=== PATIENT | female | born 1945 | race Caucasian/White ===

== ENCOUNTER → 2018-03-01 08:40 | Outpatient (CLI) | payer OTHER, SELFPAY ==
[2018-03-04 21:29] LABS: H. Pylori Antigen Stool Not detected (Not detected)
== END ==
PROVIDERS: PCP Internal Medicine; Visit Provider Internal Medicine
DX: K29.70 Gastritis, unspecified, without bleeding (principal)
CPT/HCPCS: 86677

== ENCOUNTER → 2018-04-04 15:59 | Outpatient (CLI) | payer OTHER, SELFPAY ==
[2018-04-04 17:35] LABS: Estimated Glomerular Filt Rate > 60.0 mL/min (>60)
== END ==
PROVIDERS: PCP Internal Medicine; Visit Provider Student in an Organized Health Care Education/Training Program
DX: E21.0 Primary hyperparathyroidism (principal)
CPT/HCPCS: 36415; 82565

== ENCOUNTER → 2018-05-27 10:11 | Outpatient (CLI) | payer OTHER, SELFPAY ==
[2018-05-27 13:57] LABS: Calcium 10.8 mg/dL (8.4-10.2)
== END ==
PROVIDERS: PCP Internal Medicine; Visit Provider Physician Assistant Medical
DX: E21.0 Primary hyperparathyroidism (principal)
CPT/HCPCS: 36415; 82310

== ENCOUNTER → 2018-10-05 10:19 | Outpatient (CLI) | payer OTHER, SELFPAY ==
--- NOTE | 2018-10-05 | DI.MG.S_ITS ---
BILATERAL DIGITAL SCREENING MAMMOGRAM 3D/2D WITH CAD: 10/05/2018 CLINICAL: Routine screening. Comparison is made to exams dated: 10/01/2017 mammogram, 09/26/2016 mammogram, and 09/28/2015 mammogram - [facility]. There are scattered fibroglandular elements in both breasts. Current study was also evaluated with a Computer Aided Detection (CAD) system. There are mole markers on the left breast. No significant masses, calcifications, or other findings are seen in either breast. There has been no significant interval change. IMPRESSION: NEGATIVE There is no mammographic evidence of malignancy. A 1 year screening mammogram is recommended. This exam was interpreted at Station ID: [id number]. NOTE: For mammograms, a report in lay terms will be sent to the patient. Approximately 15% of breast malignancies will not be visualized mammographically. In the management of a palpable breast mass, a negative mammogram must not discourage biopsy of a clinically suspicious lesion. Electronically Signed By: Zhao perkins/anitha:10/07/2018 17:51:15 letter sent: Normal Exam ACR BI-RADS Category 1: Negative 3341F
== END ==
PROVIDERS: PCP Student in an Organized Health Care Education/Training Program; Visit Provider Student in an Organized Health Care Education/Training Program
DX: Z12.31 Encounter for screening mammogram for malignant neoplasm of breast (principal)
CPT/HCPCS: 77063; 77067

== ENCOUNTER → 2018-11-18 13:23 | Outpatient (CLI) | payer OTHER, SELFPAY ==
[2018-11-18 14:52] LABS: Calcium 9.8 mg/dL (8.4-10.2)
[2018-11-18 16:08] LABS: Vitamin D 25 Hydroxy (D3) 64.4 ng/mL (30.0-100.0)
[2018-11-20 15:21] LABS: Parathyroid Hormone Int 74 pg/mL (14-64)
== END ==
PROVIDERS: PCP Student in an Organized Health Care Education/Training Program; Visit Provider Internal Medicine Endocrinology, Diabetes & Metabolism
DX: E21.3 Hyperparathyroidism, unspecified (principal)
CPT/HCPCS: 36415; 82306; 82310; 83970; 84100

== ENCOUNTER → 2019-02-17 11:13 | Outpatient (CLI) | payer OTHER, SELFPAY ==
[2019-02-19 16:01] LABS: Fecal Immunochemical Test NOT DETECTED (NOT DETECTED)
== END ==
PROVIDERS: PCP Student in an Organized Health Care Education/Training Program; Visit Provider Student in an Organized Health Care Education/Training Program
DX: Z12.11 Encounter for screening for malignant neoplasm of colon (principal)
CPT/HCPCS: 82274

== ENCOUNTER → 2019-05-30 10:00 | Outpatient (CLI) | payer OTHER, SELFPAY ==
[2019-05-30 11:32] LABS: BUN Creatinine Ratio 28.6 (6-22); Blood Urea Nitrogen 20 mg/dL (7-17); Calcium 10.5 mg/dL (8.4-10.2); Carbon Dioxide 31 mmol/L (22-32); Chloride 97 mmol/L (98-107); Estimated Glomerular Filt Rate > 60.0 mL/min (>60); Glucose 96 mg/dL (80-110); HEMOLYSIS < 15 (0-50); Potassium 4.3 mmol/L (3.4-5.1); Sodium 134 mmol/L (137-145)
[2019-05-30 11:51] LABS: Vitamin D 25 Hydroxy (D3) 62.8 ng/mL (30.0-100.0)
[2019-06-04 12:19] LABS: Parathyroid Hormone Int 71 pg/mL (14-64)
== END ==
PROVIDERS: PCP Student in an Organized Health Care Education/Training Program; Visit Provider Internal Medicine Endocrinology, Diabetes & Metabolism
DX: M81.0 Age-related osteoporosis without current pathological fracture (principal); E21.0 Primary hyperparathyroidism; I10 Essential (primary) hypertension
CPT/HCPCS: 36415; 80048; 82306; 83970; 84443

== ENCOUNTER → 2019-07-14 10:04 | Outpatient (CLI) | payer OTHER, SELFPAY ==
[2019-07-14 11:26] LABS: Calcium 10.1 mg/dL (8.4-10.2); Phosphorous 3.5 mg/dL (2.8-4.1)
[2019-07-16 13:47] LABS: Parathyroid Hormone Int 80 pg/mL (14-64)
== END ==
PROVIDERS: Family Provider Student in an Organized Health Care Education/Training Program; PCP Student in an Organized Health Care Education/Training Program; Visit Provider Internal Medicine Endocrinology, Diabetes & Metabolism
DX: E21.0 Primary hyperparathyroidism (principal); M81.0 Age-related osteoporosis without current pathological fracture
CPT/HCPCS: 36415; 82306; 82310; 83970; 84100

== ENCOUNTER 2019-08-19 08:23 | Day surgery (SDC) | payer OTHER, SELFPAY ==
[2019-08-19] MEDS: PROPARACAINE 0.5% OPHTH SOL 2 DROPS EYE-OP (09:19)
[2019-08-19] MEDS: CATARACT EYE COMPOUND (10 DROPS/SYRINGE) 3 DROPS EYE-OP (09:21)
[2019-08-19 09:29] VITALS: BP 155/84; PULSE 75; RESP 15; TEMP 36.1; O2SAT 99; BMI 14.4
--- NOTE | 2019-08-19 10:09 | PM.PREOP ---
Pre-operative Note Interval Note History & Physical reviewed/Exam performed by Physician: No Changes to H&P: No
--- NOTE | 2019-08-19 10:09 | PM.OP.1 ---
Operative Date/Time/Diagnoses Pre-op diagnosis: Nuclear Cataract Left eye Post-op diagnosis: same Procedure & Clinicians Surgeon: Augustine Tarango Anesthesia Type: MAC +/- and Sedation Operative Notes Procedure in detail: Patient brought to the operating suite. Tetracaine drops placed in the left eye. Patient was prepped and draped in sterile manner. Wire lid speculum was placed in the eye. Betadine drops were placed on the eye. This was irrigated. Lidocaine jelly was placed on the eye. A paracentesis port was created with a side-port blade. 0.1 mL 1% preservative free lidocaine was injected into the anterior chamber. The anterior chamber was deepened with viscoelastic. 2.6 mm keratome was used to create a temporal clear corneal incision. Cystotome and Utrata forceps were used to create continuous tear capsulorrhexis. Balanced salt solution was used to hydro dissect the nucleus. The phacoemulsification handpiece was inserted and the nucleus was removed using the stop and chop technique. The irrigation aspiration handpiece was inserted and the remaining cortex was removed. Anterior chamber was deepened with viscoelastic. An Osborne ZCB00 intraocular lens with a power of 16.5 was injected into the capsular bag. Irrigation aspiration handpiece was inserted and the remaining viscoelastic was removed. Incision was hydrated with balanced salt solution and found to be leak free with pressure with Weck-Heide sponges. 0.1 mL Vigamox injected anterior chamber. 0.3 mL Kenalog 10 mg was injected subconjunctivally. Lid speculum was removed. The patient left the operating room in excellent condition. Complications: none Post-operative Condition: stable Disposition: same day surgery
[2019-08-19] MEDS: CHONDROIDTIN/SOD HYALURONATE 1.05 ML SYRINGE INTRAOCULA (10:27)
[2019-08-19] MEDS: PHENYLEPHRINE/LIDOCAINE VIAL (OR) 0.2 ML EYE-OP (10:28)
[2019-08-19] MEDS: LIDOCAINE JELLY 2% 5 ML 1 APPLIC TOP (10:28)
[2019-08-19] MEDS: MOXIFLOXACIN INJ 5 MG/ML VIAL EYE-OP (10:28)
[2019-08-19] MEDS: TRIAMCINOLONE 50 MG/5 ML VIAL INJ (10:29)
[2019-08-19] MEDS: BALANCED SALT IRRIG SOLN NO.2 500 ML, EPINEPHrine 1 MG IRR (10:29)
[2019-08-19] MEDS: TETRACAINE 0.5% OPHTH DROPS 4 ML 2 DROPS EYE-OP (10:29)
[2019-08-19 10:53] VITALS: BP 146/83; PULSE 79; RESP 16; TEMP 36.7; O2SAT 98
--- NOTE | 2019-08-19 14:20 | SUR.PHASEII ---
called volunteer for discharge. Pt dressed, transferred into blue wheel chair, pleasant, oriented, expressed appreciation for care and commented on how nice everyone was. Surgical site. CDI. Stable.
== END 2019-08-19 11:04 | disposition home or self-care (01) ==
LOC: OR 08:25
PROVIDERS: Family Provider Student in an Organized Health Care Education/Training Program; PCP Student in an Organized Health Care Education/Training Program; Visit Provider Ophthalmology
PROC: (CPT 66984; principal; 2019-08-19 10:15)
DX: H25.12 Age-related nuclear cataract, left eye (principal)
CPT/HCPCS: 66984; J0171; J2250; J3010; J3301

== ENCOUNTER 2019-09-02 10:28 | Day surgery (SDC) | payer OTHER, SELFPAY ==
[2019-09-02] MEDS: PROPARACAINE 0.5% OPHTH SOL 2 DROPS EYE-OP (10:45)
[2019-09-02 10:58] VITALS: BP 144/82; PULSE 82; RESP 16; TEMP 36.9; O2SAT 100; BMI 26.3
[2019-09-02] MEDS: CATARACT EYE COMPOUND (10 DROPS/SYRINGE) 3 DROPS EYE-OP (11:04)
--- NOTE | 2019-09-02 11:08 | PM.PREOP ---
Pre-operative Note Interval Note History & Physical reviewed/Exam performed by Physician: No Changes to H&P: No
--- NOTE | 2019-09-02 11:08 | PM.OP.1 ---
Operative Date/Time/Diagnoses Pre-op diagnosis: Nuclear cataract right eye Procedure & Clinicians Procedure: Cataract Surgery Same procedure as scheduled: Yes Surgeon: Augustine Tarango Anesthesia Type: MAC +/- and Sedation Operative Notes Procedure in detail: Patient brought to the operating suite. Tetracaine drops placed in the right eye. Patient was prepped and draped in sterile manner. Wire lid speculum was placed in the eye. Betadine drops were placed on the eye. This was irrigated. Lidocaine jelly was placed on the eye. A paracentesis port was created with a side-port blade. 0.1 mL 1% preservative free lidocaine was injected into the anterior chamber. The anterior chamber was deepened with viscoelastic. 2.6 mm keratome was used to create a temporal clear corneal incision. Cystotome and Utrata forceps were used to create continuous tear capsulorrhexis. Balanced salt solution was used to hydro dissect the nucleus. The phacoemulsification handpiece was inserted and the nucleus was removed using the stop and chop technique. The irrigation aspiration handpiece was inserted and the remaining cortex was removed. Anterior chamber was deepened with viscoelastic. An Osborne ZCB00 intraocular lens with a power of 17.0 was injected into the capsular bag. Irrigation aspiration handpiece was inserted and the remaining viscoelastic was removed. Incision was hydrated with balanced salt solution and found to be leak free with pressure with Weck-Ehide sponges. 0.1 mL Vigamox injected anterior chamber. 0.3 mL Kenalog 10 mg was injected subconjunctivally. Lid speculum was removed. The patient left the operating room in excellent condition. Complications: none Post-operative Condition: stable Disposition: same day surgery
[2019-09-02] MEDS: PHENYLEPHRINE/LIDOCAINE VIAL (OR) 0.2 ML EYE-OP (11:46)
[2019-09-02] MEDS: CHONDROIDTIN/SOD HYALURONATE 1.05 ML SYRINGE INTRAOCULA (11:47)
[2019-09-02] MEDS: MOXIFLOXACIN INJ 5 MG/ML VIAL EYE-OP (11:47)
[2019-09-02] MEDS: TRIAMCINOLONE 50 MG/5 ML VIAL INJ (11:47)
[2019-09-02] MEDS: LIDOCAINE JELLY 2% 5 ML 1 APPLIC TOP (11:48)
[2019-09-02] MEDS: BALANCED SALT IRRIG SOLN NO.2 500 ML, EPINEPHrine 1 MG IRR (11:48)
[2019-09-02] MEDS: TETRACAINE 0.5% OPHTH DROPS 4 ML 2 DROPS EYE-OP (11:48)
[2019-09-02 12:05] VITALS: BP 140/80; PULSE 80; RESP 20; TEMP 36.9; O2SAT 100
--- NOTE | 2019-09-02 18:03 | SUR.PHASEII ---
doris bruno was discharging RN for phase 2 care- all charting entered by Shayy Trevino RN
== END 2019-09-02 12:15 | disposition home or self-care (01) ==
PROVIDERS: PCP Student in an Organized Health Care Education/Training Program; Visit Provider Ophthalmology
PROC: (CPT 66984; principal; 2019-09-02 12:15)
DX: H25.11 Age-related nuclear cataract, right eye (principal); J45.909 Unspecified asthma, uncomplicated
CPT/HCPCS: 66984; J0171; J2250; J3010; J3301

== ENCOUNTER → 2019-10-09 09:58 | Outpatient (CLI) | payer OTHER, SELFPAY ==
--- NOTE | 2019-10-09 | DI.MG.S_ITS ---
BILATERAL DIGITAL SCREENING MAMMOGRAM 3D/2D WITH CAD: 10/09/2019 CLINICAL: Routine screening. Comparison is made to exams dated: 10/05/2018 mammogram, 10/01/2017 mammogram, 09/26/2016 mammogram, 09/22/2015 mammogram, 08/13/2014 mammogram, and 08/11/2013 mammogram - [facility]. There are scattered fibroglandular elements in both breasts. Current study was also evaluated with a Computer Aided Detection (CAD) system. There is an irregular asymmetry with an indistinct margin in the left breast middle depth lateral region seen on the craniocaudal view only. This appears more prominent than on prior exams. Calcifications project over this asymmetry on LCC view. There are circular mole markers overlying the breasts bilaterally. No other significant masses, calcifications, or other findings are seen in either breast. IMPRESSION: INCOMPLETE: NEEDS ADDITIONAL IMAGING EVALUATION The irregular asymmetry in the left breast middle depth lateral region is indeterminate. Additional views with possible ultrasound are recommended. This exam was interpreted at Station ID: [id number]. NOTE: For mammograms, a report in lay terms will be sent to the patient. Approximately 15% of breast malignancies will not be visualized mammographically. In the management of a palpable breast mass, a negative mammogram must not discourage biopsy of a clinically suspicious lesion. Electronically Signed By: Zhao Flowers M.D. ecl/:10/09/2019 18:33:29 letter sent: Additional Imaging Needed ACR BI-RADS Category 0: Incomplete 3340F
== END ==
PROVIDERS: PCP Student in an Organized Health Care Education/Training Program; Visit Provider Obstetrics & Gynecology
DX: Z12.31 Encounter for screening mammogram for malignant neoplasm of breast (principal)
CPT/HCPCS: 77063; 77067

== ENCOUNTER → 2019-10-22 14:12 | Outpatient (CLI) | payer OTHER, SELFPAY ==
--- NOTE | 2019-10-22 | DI.RAD.S_ITS ---
PROCEDURE: XR KNEE RT 3V INDICATIONS: RIGHT KNEE PAIN TECHNIQUE: 3 views of the knee were acquired. COMPARISON: [facility], , KNEE 3V LEFT, 06/18/2008, 10:54. FINDINGS: Bones: No fractures or dislocations. There is a mild degree of degenerative osteoarthritic joint space narrowing is seen at the medial compartment. At the medial border of the medial facet of the patellofemoral joint there is a an osseous contour irregularity which may reflect old trauma in that area. This measures approximately 1.8 cm in transverse dimension. It appears corticated. No suspicious bony lesions. Soft tissues: No joint effusion. No suspicious soft tissue calcifications. 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 Dictated by: Agustin Chambers M.D. on 10/22/2019 at 14:47 Approved by: Agustin Chambers M.D. on 10/22/2019 at 14:50
== END ==
PROVIDERS: PCP Student in an Organized Health Care Education/Training Program; Visit Provider Student in an Organized Health Care Education/Training Program
DX: M25.561 Pain in right knee (principal); M17.11 Unilateral primary osteoarthritis, right knee
CPT/HCPCS: 73562

== ENCOUNTER → 2019-10-28 13:06 | Outpatient (CLI) | payer OTHER, SELFPAY ==
--- NOTE | 2019-10-28 13:06 | DI.MG.S_ITS ---
UNILATERAL LEFT DIGITAL DIAGNOSTIC MAMMOGRAM 3D/2D WITH ADDITIONAL VIEWS: 10/28/2019 CLINICAL: Additional evaluation requested from prior study. Comparison is made to exams dated: 10/09/2019 mammogram, 10/05/2018 mammogram, and 10/01/2017 mammogram - [facility]. There are scattered fibroglandular elements in left breast. There is an irregular focal asymmetry with a few coarse and vascular calcifications in the left breast at 2 o'clock middle depth. This is less prominent in additional views. No other significant masses or calcifications are seen in the breast. IMPRESSION: INCOMPLETE: NEEDS ADDITIONAL IMAGING EVALUATION The irregular focal asymmetry in the left breast partially resolves and remains indeterminate. An ultrasound is recommended. This was performed immediately following this exam. This exam was interpreted at Station ID: [id number]. NOTE: For mammograms, a report in lay terms will be sent to the patient. Approximately 15% of breast malignancies will not be visualized mammographically. In the management of a palpable breast mass, a negative mammogram must not discourage biopsy of a clinically suspicious lesion. Electronically Signed By: Rosalie dey/:10/28/2019 14:22:08 copy to: BREN SCHUSTER BI-RADS Category 0: Incomplete 3340F
--- NOTE | 2019-10-28 13:06 | DI.US.S_ITS ---
LIMITED ULTRASOUND OF LEFT BREAST: 10/28/2019 CLINICAL: Patient returns today to evaluate a focal asymmetry in the left breast. Comparison is made to exams dated: 10/28/2019 mammogram, 10/09/2019 mammogram, 10/05/2018 mammogram, 10/01/2017 mammogram, 09/26/2016 mammogram, and 09/22/2015 mammogram - [facility]. Color flow and real-time ultrasound of the left breast 1-5 o'clock region were performed. Sotelo scale images of the real-time examination were reviewed. No significant abnormalities were seen sonographically in the left breast. Specifically, no finding to correspond to the patient's mammographic abnormality. IMPRESSION: PROBABLY BENIGN No sonographic correlate to the mammographic finding, and no sonographic evidence of malignancy. A follow-up left mammogram in 6 months is recommended to demonstrate stability of the mammographic finding. Findings and recommendations were conveyed to the patient at time of exam. This exam was interpreted at Station ID: [id number]. Electronically Signed By: Rosalie dey/:10/28/2019 14:24:54 copy to: BREN MONTGOMERY letter sent: Followup Recommended Ultrasound BI-RADS: 3 Probably benign
== END ==
PROVIDERS: PCP Student in an Organized Health Care Education/Training Program; Visit Provider Obstetrics & Gynecology
DX: R92.8 Other abnormal and inconclusive findings on diagnostic imaging of breast (principal); N64.89 Other specified disorders of breast
CPT/HCPCS: 76642; 77065; G0279

== ENCOUNTER → 2019-11-26 14:07 | Outpatient (CLI) | payer OTHER, SELFPAY | PROVIDERS: PCP Student in an Organized Health Care Education/Training Program; Referring Provider Internal Medicine Endocrinology, Diabetes & Metabolism; Visit Provider Internal Medicine Endocrinology, Diabetes & Metabolism | DX: M85.88 Other specified disorders of bone density and structure, other site (principal); Z78.0 Asymptomatic menopausal state; E21.3 Hyperparathyroidism, unspecified; Z87.891 Personal history of nicotine dependence | CPT/HCPCS: 77080; 77081 ==

== ENCOUNTER → 2020-04-16 11:06 | Outpatient (CLI) | payer OTHER, SELFPAY ==
[2020-04-16 12:21] LABS: Albumin 4.4 g/dL (3.5-5.0); BUN Creatinine Ratio 27.9 (6-22); Blood Urea Nitrogen 17 mg/dL (7-17); Calcium 10.3 mg/dL (8.4-10.2); Carbon Dioxide 30 mmol/L (22-32); Chloride 95 mmol/L (98-107); Estimated Glomerular Filt Rate > 60.0 mL/min (>60); Glucose 89 mg/dL (80-110); HEMOLYSIS < 15 (0-50); Phosphorous 3.9 mg/dL (2.8-4.1); Potassium 4.2 mmol/L (3.4-5.1); Sodium 131 mmol/L (137-145)
[2020-04-16 12:54] LABS: Thyroid Stimulating Hormone 2.31 uIU/mL (0.47-4.68)
[2020-04-17 06:35] LABS: Parathyroid Hormone Int 70 pg/mL (15-65)
== END ==
PROVIDERS: PCP Student in an Organized Health Care Education/Training Program; Referring Provider Internal Medicine Endocrinology, Diabetes & Metabolism; Visit Provider Internal Medicine Endocrinology, Diabetes & Metabolism
DX: M81.0 Age-related osteoporosis without current pathological fracture (principal); E21.0 Primary hyperparathyroidism
CPT/HCPCS: 36415; 80069; 82306; 83970; 84443

== ENCOUNTER → 2020-04-27 08:42 | Outpatient (CLI) | payer OTHER, SELFPAY ==
--- NOTE | 2020-04-27 08:42 | DI.MG.S_ITS ---
UNILATERAL LEFT DIGITAL DIAGNOSTIC MAMMOGRAM 3D/2D SHORT-TERM FOLLOW-UP: 04/27/2020 CLINICAL: Patient returns for a 6 month follow up of the left breast. Comparison is made to exams dated: 10/28/2019 mammogram, 10/09/2019 mammogram, 10/05/2018 mammogram, 10/01/2017 mammogram, 09/26/2016 mammogram, and 09/22/2015 mammogram - [facility]. There are scattered fibroglandular elements in left breast. The irregular focal asymmetry with indistinct margins in the left breast at 2 o'clock middle depth is no longer seen. No other significant masses or calcifications are seen in the breast. IMPRESSION: There is no mammographic evidence of malignancy. Return to annual mammogram screening schedule is recommended. This exam was interpreted at Station ID: [id number]. NOTE: For mammograms, a report in lay terms will be sent to the patient. Approximately 15% of breast malignancies will not be visualized mammographically. In the management of a palpable breast mass, a negative mammogram must not discourage biopsy of a clinically suspicious lesion. Electronically Signed By: Radu Black M.D. ddbg/:04/27/2020 09:14:55 copy to: BREN MONTGOMERY letter sent: Normal Exam ACR BI-RADS Category 2: Benign Finding(s) 3342F
== END ==
PROVIDERS: PCP Student in an Organized Health Care Education/Training Program; Referring Provider Student in an Organized Health Care Education/Training Program; Visit Provider Student in an Organized Health Care Education/Training Program
DX: R92.8 Other abnormal and inconclusive findings on diagnostic imaging of breast (principal); N64.89 Other specified disorders of breast
CPT/HCPCS: 77065; G0279

== ENCOUNTER → 2020-08-18 14:14 | Outpatient (CLI) | payer OTHER, SELFPAY ==
--- NOTE | 2020-08-18 | DI.US.S_ITS ---
PROCEDURE: US THYROID INDICATIONS: Nontoxic multinodular goiter TECHNIQUE: Real-time scanning was performed of the thyroid gland, with image documentation. COMPARISON: None. FINDINGS: Right: Thyroid lobe measures 5.7 x 2.5 x 2.7 cm, and is diffusely heterogeneous in echotexture. Left: Prior left thyroidectomy. Isthmus: 3.4 mm thick. Nodule number: 1 Location: Right inferior Size: 1.9 x 2.1 x 1.5 cm. Composition: Solid Echogenicity: Predominantly hyperechoic Shape: wider than tall. Margins: Smooth Echogenic foci: Internal punctate echogenic foci Total points: 6 ACR TI-RADS category: Moderately suspicious Nodule number: 2 Location: Right mid Size: 2.3 x 2.2 x 1.2 cm. Composition: Solid Echogenicity: Hyperechoic Shape: wider than tall. Margins: Smooth Echogenic foci: None Total points: 3 ACR TI-RADS category: Mildly suspicious IMPRESSION: Right thyroid nodules as above. Recommend sonographically directed fine-needle aspiration involving the right #1 nodule. ACR TI-RADS definitions and recommendations: TI-RADS 1 (benign): 0 points. FNA not needed. TI-RADS 2 (not suspicious): 2 points. FNA not needed. TI-RADS 3 (mildly suspicious): 3 points. * FNA if 2.5 cm or larger, follow up if 1.5 cm or larger (at 1, 3, and 5 years). TI-RADS 4 (moderately suspicious): 4-6 points. * FNA if 1.5 cm or larger, follow up if 1 cm or larger (at 1, 2, 3, and 5 years). TI-RADS 5 (highly suspicious): 7 points or more. * FNA if 1 cm or larger, follow up if 0.5 cm or larger (every year for 5 years). Dictated by: Ronaldo Saeed [facility] Interpreted: Rosalie Schofield MD on 08/18/2020 at 16:19 Approved by: Rosalie Schofield M.D. on 08/18/2020 at 17:18
== END ==
PROVIDERS: PCP Student in an Organized Health Care Education/Training Program; Referring Provider Internal Medicine Endocrinology, Diabetes & Metabolism; Visit Provider Internal Medicine Endocrinology, Diabetes & Metabolism
DX: E04.2 Nontoxic multinodular goiter (principal)
CPT/HCPCS: 76536

== ENCOUNTER → 2020-10-14 11:08 | Outpatient (CLI) | payer OTHER, SELFPAY ==
--- NOTE | 2020-10-14 | DI.MG.S_ITS ---
BILATERAL DIGITAL SCREENING MAMMOGRAM 3D/2D WITH CAD: 10/14/2020 CLINICAL: Routine screening. Comparison is made to exams dated: 10/09/2019 mammogram, 10/05/2018 mammogram, 10/01/2017 mammogram, and 04/27/2020 mammogram - [facility]. There are scattered fibroglandular elements in both breasts. Current study was also evaluated with a Computer Aided Detection (CAD) system. There are benign calcifications in both breasts. No significant masses, calcifications, or other findings are seen in either breast. There has been no significant interval change. IMPRESSION: BENIGN There is no mammographic evidence of malignancy. A 1 year screening mammogram is recommended. This exam was interpreted at Station ID: [id number]. NOTE: For mammograms, a report in lay terms will be sent to the patient. Approximately 15% of breast malignancies will not be visualized mammographically. In the management of a palpable breast mass, a negative mammogram must not discourage biopsy of a clinically suspicious lesion. Electronically Signed By: Nate sandoval/anitha:10/14/2020 13:10:36 copy to: BREN MONTGOMERY letter sent: Normal Exam ACR BI-RADS Category 2: Benign Finding(s) 3342F
== END ==
PROVIDERS: PCP Student in an Organized Health Care Education/Training Program; Referring Provider Student in an Organized Health Care Education/Training Program; Visit Provider Student in an Organized Health Care Education/Training Program
DX: Z12.31 Encounter for screening mammogram for malignant neoplasm of breast (principal)
CPT/HCPCS: 77063; 77067

== ENCOUNTER → 2020-12-02 11:28 | Outpatient (CLI) | payer OTHER, SELFPAY ==
[2020-12-02 13:27] LABS: Albumin 4.2 g/dL (3.5-5.0); BUN Creatinine Ratio 24.6 (6-22); Blood Urea Nitrogen 15 mg/dL (7-17); Calcium 9.7 mg/dL (8.4-10.2); Carbon Dioxide 32 mmol/L (22-32); Chloride 92 mmol/L (98-107); Estimated Glomerular Filt Rate > 60.0 mL/min (>60); Glucose 94 mg/dL (80-110); HEMOLYSIS < 15 (0-50); Phosphorous 3.4 mg/dL (2.8-4.1); Potassium 3.8 mmol/L (3.4-5.1); Sodium 128 mmol/L (137-145)
[2020-12-03 06:28] LABS: Parathyroid Hormone Int 112 pg/mL (15-65)
== END ==
PROVIDERS: PCP Student in an Organized Health Care Education/Training Program; Referring Provider Internal Medicine Endocrinology, Diabetes & Metabolism; Visit Provider Internal Medicine Endocrinology, Diabetes & Metabolism
DX: E21.0 Primary hyperparathyroidism (principal)
CPT/HCPCS: 36415; 80069; 83970

== ENCOUNTER → 2021-10-22 10:16 | Outpatient (CLI) | payer OTHER, SELFPAY ==
--- NOTE | 2021-10-22 10:17 | DI.MG.S_ITS ---
BILATERAL DIGITAL SCREENING MAMMOGRAM 3D/2D WITH CAD: 10/22/2021 CLINICAL: Routine screening. Comparison is made to exams dated: 10/14/2020 mammogram, 10/09/2019 mammogram, and 10/05/2018 mammogram - [facility]. There are scattered fibroglandular elements in both breasts. Current study was also evaluated with a Computer Aided Detection (CAD) system. There are benign calcifications in both breasts. No significant masses, calcifications, or other findings are seen in either breast. There has been no significant interval change. IMPRESSION: BENIGN There is no mammographic evidence of malignancy. A 1 year screening mammogram is recommended. This exam was interpreted at Station ID: [id number]. NOTE: For mammograms, a report in lay terms will be sent to the patient. Approximately 15% of breast malignancies will not be visualized mammographically. In the management of a palpable breast mass, a negative mammogram must not discourage biopsy of a clinically suspicious lesion. Electronically Signed By: Joe renee/anitha:10/24/2021 00:13:15 copy to: BREN MONTGOMERY letter sent: Normal Exam ACR BI-RADS Category 2: Benign Finding(s) 3342F
== END ==
PROVIDERS: PCP Student in an Organized Health Care Education/Training Program; Referring Provider Student in an Organized Health Care Education/Training Program; Visit Provider Student in an Organized Health Care Education/Training Program
DX: Z12.31 Encounter for screening mammogram for malignant neoplasm of breast (principal)
CPT/HCPCS: 77063; 77067

== ENCOUNTER → 2022-05-10 10:05 | Outpatient (CLI) | payer OTHER, SELFPAY ==
[2022-05-10 11:19] LABS: Alanine Aminotransferase 24 IU/L (<35); Albumin 4.5 g/dL (3.5-5.0); Albumin Globulin Ratio 1.5 (1.0-2.8); Alkaline Phosphatase 62 U/L (38-126); Aspartate Aminotransferase 28 IU/L (14-36); Bilirubin Total 1.5 mg/dL (0.2-1.3); Blood Urea Nitrogen 13 mg/dL (7-17); Calcium 9.9 mg/dL (8.4-10.2); Carbon Dioxide 26 mmol/L (22-32); Chloride 98 mmol/L (98-107); Estimated Glomerular Filt Rate > 60 mL/min (>60); Glucose 79 mg/dL (80-110); HEMOLYSIS < 15 (0-50); Potassium 4.4 mmol/L (3.4-5.1); Sodium 134 mmol/L (137-145); Total Protein 7.5 g/dL (6.3-8.2)
[2022-05-10 11:35] LABS: Free T4, Direct Thyroxine 1.02 ng/dL (0.78-2.19); Vitamin D 25 Hydroxy (D3) 75.5 ng/mL (30.0-100.0)
[2022-05-10 11:49] LABS: Thyroid Stimulating Hormone 1.64 uIU/mL (0.47-4.68)
== END ==
PROVIDERS: PCP Student in an Organized Health Care Education/Training Program
DX: E21.0 Primary hyperparathyroidism (principal); M81.0 Age-related osteoporosis without current pathological fracture
CPT/HCPCS: 36415; 80053; 82306; 84439; 84443

== ENCOUNTER → 2022-06-16 09:45 | Outpatient (CLI) | payer OTHER, SELFPAY ==
--- NOTE | 2022-06-16 09:47 | DI.US.S_ITS ---
PROCEDURE: US THYROID INDICATIONS: MULTIPLE THYROID NODULES TECHNIQUE: Real-time scanning was performed of the thyroid gland, with image documentation. COMPARISON: [facility], US, US THYROID, 08/18/2020, 14:30. FINDINGS: Right: Thyroid lobe measures 5.7 x 2.6 x 2.9 cm, and is heterogeneous in echotexture. Left: Left thyroid lobe is surgically absent. Isthmus: 3.7 mm thick. Nodule number: 1 Location: Inferior lateral right thyroid lobe Size: 1.9 x 1.4 x 1.8 cm. Previously measures 1.9 x 1.5 x 2.1 cm Composition: Predominantly solid. Echogenicity: Isoechoic Shape: Wider than tall. Margins: Smooth Echogenic foci: Punctate Total points: 6 ACR TI-RADS category: Moderately suspicious. Nodule number: 2 Location: Inferior medial right thyroid lobe Size: 1.6 x 1.3 x 1.2 cm. New since previous study. Composition: Predominantly solid Echogenicity: Hypoechoic Shape: Wider than tall Margins: Smooth Echogenic foci: None Total points: 4 ACR TI-RADS category: Moderately suspicious. Nodule number: 3 Location: Anterior and inferior medial right thyroid lobe Size: 0.8 x 0.9 x 1.0 cm. New since previous study Composition: Predominantly cystic Echogenicity: Markedly hypoechoic Shape: Wider than tall Margins: Smooth Echogenic foci: None Total points: 2 ACR TI-RADS category: Not suspicious Nodule number: 4. Location: Anterolateral aspect of inferior medial right thyroid lobe Size: 1.3 x 1.2 x 0.8 cm. New since previous study. Composition: Predominantly cystic Echogenicity: Anechoic Shape: Wider than tall Margins: Smoothly Echogenic foci: None Total points: 2 ACR TI-RADS category: Not suspicious. Nodule number: 5 Location: Medial midpole right thyroid lobe Size: 2.4 x 2.3 x 1.5 cm, previously measures 2.3 x 2.2 x 1.2 cm . Composition: Predominantly solid Echogenicity: Hypoechoic Shape: Wider than tall Margins: Smooth Echogenic foci: None Total points: 4 ACR TI-RADS category: Moderately suspicious. Nodule number: 6 Location: Superior lateral right thyroid lobe Size: 2.6 x 1.8 x 1.6 cm, new since previous study. Composition: Solid Echogenicity: Isoechoic Shape: Wider than tall Margins: Smooth Echogenic foci: None Total points: 3 ACR TI-RADS category: Mildly suspicious. Nodule number: 7 Location: Isthmus Size: 0.7 x 0.8 x 0.3 cm, new since previous study. Composition: Cystic Echogenicity: Anechoic Shape: Wider than tall Margins: Smooth Echogenic foci: None Total points: 2 ACR TI-RADS category: Not suspicious. IMPRESSION: 1. Prior left thyroidectomy. No soft tissue is seen in left thyroid bed to suggest recurrence. 2. Enlarged right thyroid lobe with heterogeneous thyroid parenchymal echotexture and multiple right thyroid nodules as described above. Consider fine needle aspiration of the superior lateral right thyroid lobe nodule (thyroid nodule 6.) ACR TI-RADS definitions and recommendations: TI-RADS 1 (benign): 0 points. FNA not needed. TI-RADS 2 (not suspicious): 2 points. FNA not needed. TI-RADS 3 (mildly suspicious): 3 points. * FNA if 2.5 cm or larger, follow up if 1.5 cm or larger (at 1, 3, and 5 years). TI-RADS 4 (moderately suspicious): 4-6 points. * FNA if 1.5 cm or larger, follow up if 1 cm or larger (at 1, 2, 3, and 5 years). TI-RADS 5 (highly suspicious): 7 points or more. * FNA if 1 cm or larger, follow up if 0.5 cm or larger (every year for 5 years). Dictated by: Omar Graham M.D. on 06/16/2022 at 14:27 Approved by: Omar Graham M.D. on 06/16/2022 at 14:35
== END ==
PROVIDERS: PCP Student in an Organized Health Care Education/Training Program; Referring Provider Internal Medicine Endocrinology, Diabetes & Metabolism; Visit Provider Internal Medicine Endocrinology, Diabetes & Metabolism
DX: E04.2 Nontoxic multinodular goiter (principal)
CPT/HCPCS: 76536

== ENCOUNTER → 2022-08-21 09:22 | Outpatient (CLI) | payer OTHER, SELFPAY ==
[2022-08-21 10:44] LABS: Vitamin D 25 Hydroxy (D3) 63.7 ng/mL (30.0-100.0)
[2022-08-21 10:47] LABS: Alanine Aminotransferase 27 IU/L (<35); Albumin 4.1 g/dL (3.5-5.0); Albumin Globulin Ratio 1.4 (1.0-2.8); Alkaline Phosphatase 69 U/L (38-126); Aspartate Aminotransferase 24 IU/L (14-36); BUN Creatinine Ratio 23.1 (6-22); Bilirubin Total 1.3 mg/dL (0.2-1.3); Blood Urea Nitrogen 15 mg/dL (7-17); Calcium 10.1 mg/dL (8.4-10.2); Carbon Dioxide 28 mmol/L (22-32); Chloride 100 mmol/L (98-107); Estimated Glomerular Filt Rate > 60 mL/min (>60); Glucose 78 mg/dL (80-110); HEMOLYSIS < 15 (0-50); Potassium 4.3 mmol/L (3.4-5.1); Sodium 135 mmol/L (137-145); Total Protein 7.1 g/dL (6.3-8.2)
[2022-08-23 06:33] LABS: Parathyroid Hormone Int 66 pg/mL (15-65)
== END ==
PROVIDERS: PCP Student in an Organized Health Care Education/Training Program; Referring Provider Internal Medicine Endocrinology, Diabetes & Metabolism; Visit Provider Internal Medicine Endocrinology, Diabetes & Metabolism
DX: E21.0 Primary hyperparathyroidism (principal)
CPT/HCPCS: 36415; 80053; 82306; 83970

== ENCOUNTER → 2022-08-23 09:22 | Outpatient (CLI) | payer OTHER, SELFPAY ==
[2022-08-23 11:35] LABS: Collection Time Urine 24 Hours; Creatinine 24 Hour Urine 796 mg/day (800-1800); Creatinine Urine Random 88.4 mg/dL; Total Volume Urine 900 mL
[2022-08-23 12:45] LABS: Calcium 24 Hour Urine 272 mg/day (100-300); Calcium Urine Random 30.2 mg/dL; Collection Time Urine 24 Hours; Total Volume Urine 900 mL
== END ==
PROVIDERS: PCP Student in an Organized Health Care Education/Training Program; Referring Provider Internal Medicine Endocrinology, Diabetes & Metabolism; Visit Provider Internal Medicine Endocrinology, Diabetes & Metabolism
DX: E21.0 Primary hyperparathyroidism (principal)
CPT/HCPCS: 82340; 82570

== ENCOUNTER → 2022-10-27 11:12 | Outpatient (CLI) | payer OTHER, SELFPAY ==
--- NOTE | 2022-10-27 11:14 | DI.MG.S_ITS ---
BILATERAL DIGITAL SCREENING MAMMOGRAM 3D/2D WITH CAD: 10/27/2022 CLINICAL: Routine screening. Comparison is made to exams dated: 10/22/2021 mammogram, 10/14/2020 mammogram, and 10/09/2019 mammogram - [facility]. There are scattered areas of fibroglandular density in both breasts (category b / 25%-50% glandular tissue). Current study was also evaluated with a Computer Aided Detection (CAD) system. There are benign calcifications in both breasts. No significant masses, calcifications, or other findings are seen in either breast. There has been no significant interval change. IMPRESSION: BENIGN There is no mammographic evidence of malignancy. A 1 year screening mammogram is recommended. Based on the Tyrer Cuzick model (a risk assessment model) the patient's lifetime risk is 3.3% and her 10 year risk is 0.0%. According to the ACR, ACS, and NCCN guidelines, an annual breast MRI exam along with mammogram is recommended if the patient's lifetime risk is 20% or greater. This exam was interpreted at Station ID: [id number]. NOTE: For mammograms, a report in lay terms will be sent to the patient. Approximately 15% of breast malignancies will not be visualized mammographically. In the management of a palpable breast mass, a negative mammogram must not discourage biopsy of a clinically suspicious lesion. Electronically Signed By: Jericho Jordan M.D., jr/anitha:10/27/2022 14:08:01 copy to: BREN MONTGOMERY letter sent: Normal Exam ACR BI-RADS Category 2: Benign Finding(s) 3342F
== END ==
PROVIDERS: PCP Student in an Organized Health Care Education/Training Program; Referring Provider Student in an Organized Health Care Education/Training Program; Visit Provider Student in an Organized Health Care Education/Training Program
DX: Z12.31 Encounter for screening mammogram for malignant neoplasm of breast (principal)
CPT/HCPCS: 77063; 77067

== ENCOUNTER → 2022-12-18 13:45 | Outpatient (CLI) | payer OTHER, SELFPAY ==
[2022-12-18 14:31] LABS: BUN Creatinine Ratio 31.6 (6-22); Blood Urea Nitrogen 18 mg/dL (7-17); Calcium 9.9 mg/dL (8.4-10.2); Carbon Dioxide 29 mmol/L (22-32); Chloride 98 mmol/L (98-107); Estimated Glomerular Filt Rate > 60 mL/min (>60); Glucose 86 mg/dL (80-110); HEMOLYSIS < 15 (0-50); Phosphorous 3.6 mg/dL (2.8-4.1); Potassium 4.1 mmol/L (3.4-5.1); Sodium 133 mmol/L (137-145)
[2022-12-18 16:17] LABS: Vitamin D 25 Hydroxy (D3) 60.7 ng/mL (30.0-100.0)
[2022-12-20 08:45] LABS: Parathyroid Hormone Int 55 pg/mL (15-65)
== END ==
PROVIDERS: PCP Student in an Organized Health Care Education/Training Program; Referring Provider Internal Medicine Endocrinology, Diabetes & Metabolism; Visit Provider Internal Medicine Endocrinology, Diabetes & Metabolism
DX: E21.0 Primary hyperparathyroidism (principal)
CPT/HCPCS: 36415; 80048; 82306; 83970; 84100

== ENCOUNTER → 2023-10-24 10:09 | Outpatient (CLI) | payer OTHER, SELFPAY ==
[2023-10-24 11:25] LABS: Alanine Aminotransferase 25 IU/L (<35); Albumin 4.3 g/dL (3.5-5.0); Albumin Globulin Ratio 1.3 (1.0-2.8); Alkaline Phosphatase 52 U/L (38-126); Aspartate Aminotransferase 29 IU/L (14-36); Bilirubin Total 1.4 mg/dL (0.2-1.3); Blood Urea Nitrogen 13 mg/dL (7-17); Calcium 10.1 mg/dL (8.4-10.2); Carbon Dioxide 28 mmol/L (22-32); Chloride 100 mmol/L (98-107); Estimated Glomerular Filt Rate > 60 mL/min (>60); Globulin 3.4 g/dL (1.7-4.1); Glucose 81 mg/dL (80-110); HEMOLYSIS < 15 (0-50); Potassium 4.5 mmol/L (3.4-5.1); Sodium 135 mmol/L (137-145); Total Protein 7.7 g/dL (6.3-8.2)
[2023-10-24 11:34] LABS: Vitamin D 25 Hydroxy (D3) 65.7 ng/mL (30.0-100.0)
[2023-10-26 12:36] LABS: Calcium 9.5 mg/dL (8.7-10.3); Parathyroid Hormone, Intact 85 pg/mL (15-65)
== END ==
LOC: LAB 10:11
PROVIDERS: PCP Family Medicine; Referring Provider Internal Medicine Endocrinology, Diabetes & Metabolism; Visit Provider Internal Medicine Endocrinology, Diabetes & Metabolism
DX: E83.52 Hypercalcemia (principal); M81.0 Age-related osteoporosis without current pathological fracture; E21.0 Primary hyperparathyroidism
CPT/HCPCS: 36415; 80053; 82306; 82310; 83970

== ENCOUNTER → 2023-11-15 07:58 | Outpatient (CLI) | payer OTHER, SELFPAY ==
--- NOTE | 2023-11-15 07:59 | DI.MG.S_ITS ---
BILATERAL DIGITAL SCREENING MAMMOGRAM 3D/2D WITH CAD: 11/15/2023 CLINICAL: Routine screening. Comparison is made to exams dated: 10/27/2022 mammogram, 10/22/2021 mammogram, and 10/14/2020 mammogram - [facility]. Both breasts are heterogeneously dense, which may obscure small masses (category c / 51-75% glandular tissue). Current study was also evaluated with a Computer Aided Detection (CAD) system. There is a benign focal asymmetry in the left breast. There also are benign calcifications in both breasts. No significant masses, calcifications, or other findings are seen in either breast. There has been no significant interval change. IMPRESSION: BENIGN There is no mammographic evidence of malignancy. A 1 year screening mammogram is recommended. Based on the Tyrer Cuzick model (a risk assessment model) the patient's lifetime risk is 4.4% and her 10 year risk is 0.0%. According to the ACR, ACS, and NCCN guidelines, an annual breast MRI exam along with mammogram is recommended if the patient's lifetime risk is 20% or greater. This exam was interpreted at Station ID: [id number]. NOTE: For mammograms, a report in lay terms will be sent to the patient. Approximately 15% of breast malignancies will not be visualized mammographically. In the management of a palpable breast mass, a negative mammogram must not discourage biopsy of a clinically suspicious lesion. Electronically Signed By: Richard spears/anitha:11/15/2023 15:33:30 letter sent: Normal Exam ACR BI-RADS Category 2: Benign Finding(s) 3342F
== END ==
LOC: MAMMO 07:58
PROVIDERS: PCP Family Medicine; Referring Provider Family Medicine; Visit Provider Family Medicine
DX: Z12.31 Encounter for screening mammogram for malignant neoplasm of breast (principal); R92.333 Mammographic heterogeneous density, bilateral breasts
CPT/HCPCS: 77063; 77067

== ENCOUNTER → 2023-11-28 07:47 | Outpatient (CLI) | payer OTHER, SELFPAY ==
[2023-11-28 09:31] LABS: Cholesterol 254 mg/dL (140-199); HDL Cholesterol 71 mg/dL (40-60); LDL Cholesterol Calculated 160 mg/dL (<100); Triglycerides 116 mg/dL (35-150)
== END ==
PROVIDERS: PCP Family Medicine; Referring Provider Family Medicine; Visit Provider Family Medicine
DX: E78.2 Mixed hyperlipidemia (principal)
CPT/HCPCS: 36415; 80061

== ENCOUNTER → 2024-02-25 07:59 | Outpatient (CLI) | payer OTHER, SELFPAY ==
--- NOTE | 2024-02-25 08:01 | DI.NM.S_ITS ---
PROCEDURE: NM SENTINEL NODE W IMAGING RADIOPHARMACEUTICAL: 0.5 mCi Millipore filtered Tc-99m sulfur colloid. INDICATIONS: melanoma with a positive deep margin COMPARISON: None. TECHNIQUE: Written informed consent was obtained. The area around the region of concern on the left upper arm/shoulder was prepped and draped in a sterile fashion. Tc-99m sulfur colloid was injected intra-dermally and subcutaneously around the biopsy scar. Images were obtained approximately 60 minutes after tracer injection. FINDINGS: There is focal tracer activity identified at the injection site which localized to the left tricep/shoulder region. Area of uptake remained in the same location throughout the entire procedure. Area was imaged for 60 minutes without migration of tracer activity. No distant radiotracer activity visualized. IMPRESSION: Administration of subdermal radiotracer around the site of melanoma for intra-operative sentinel lymph node localization. Findings were discussed with the operating room nurse at 12:51 hrs. Dictated by: Joe Lau M.D. on 02/25/2024 at 12:51 Approved by: Joe Lau M.D. on 02/25/2024 at 12:58
== END ==
PROVIDERS: PCP Family Medicine; Referring Provider Surgery; Visit Provider Surgery
DX: C43.62 Malignant melanoma of left upper limb, including shoulder (principal)
CPT/HCPCS: 78195; A9541

== ENCOUNTER 2024-02-25 08:02 | Day surgery (SDC) | payer OTHER, SELFPAY ==
[2024-02-19 12:15] VITALS: BMI 25.6
[2024-02-25] VITALS (8 sets, daily range): BP systolic 143–177; BP diastolic 76–93; PULSE 75–94; RESP 12–17; TEMP 35.9–36.6; O2SAT 95–100; BMI 25.4
--- NOTE | 2024-02-25 | PATH_ITS ---
[facility] Accession Number: [id number] No. of containers..01 Tissue . 01 Material submitted: . arm - LEFT ARM . 01 Clinical history: . 5-15 PER JADEN PATINO, SITE IS LEFT ARM MELANOMA /FC . 01 Diagnosis: Left Arm, Excision: No evidence of residual malignant melanoma identified in sections examined. Procedural site changes present. Incidental lentiginous junctional melanocytic nevus. [facility] 03/03/2024 1534 Local . 01 Comment: Additional step sections are examined on block A13. Melan A stains are performed on blocks A1, A3, A5, A7, A9, A11, A13, and A15 which support the above diagnosis. There is a mild background lentiginous melanocytic hyperplasia, which is most consistent with chronic sun exposure. . 01 Electronically signed: . Willy Escalona MD, Dermatopathologist NPI- [id number] . 01 Gross description: . Received in formalin with two patient identifiers and long stitch superior left, short stitch superior left, on the requisition it is labeled short stitch superior, which is arbitrarily placed at 12 o'clock, and long stitch superior - left, which is arbitrarily placed at 3 o'clock, consists of a 4.2 x 2.0 cm elliptical skin excised to the depth of 3.8 cm. The skin is further oriented with a short stitch as superior, which is placed at 12 o'clock, and a long stitch which is oriented as superior-left, which is placed at 3 o'clock. The specimen is inked as follows: 12-3 o'clock is inked blue; 3-6 o'clock is inked orange; 6-9 o'clock is inked yellow, and 9-12 o'clock is inked green. The deep smooth fascial plane margin is inked black. The skin surface has a 0.9 x 0.1 cm central, well-healed, fibrous retraction, which is 0.6 cm from the nearest resection margin. Sectioned from superior to inferior into 8 slices, and entirely submitted: . A1 and A2: Slice 1, superior tip. A3 and A4: Slice 2. A5 and A6: Slice 3. A7 and A8: Slice 4. A9 and A10: Slice 5. A11 and A12: Slice 6. A13 and A14: Slice 7. A15: Slice 8, inferior tip. ([id number]) /MRV 03/03/2024 1534 Local . 01 Pathologist provided ICD-10: C43.9, D22.9 . 01 CPT . 801179, H80660 Specimen Comment: A courtesy copy of this report has been sent to [phone] Performed at: 01 [facility] [address] [place] [address], [place], [place] [id number] MD Radu Ramirez MD Phone: [phone]
--- NOTE | 2024-02-25 11:43 | PM.PREOP ---
Pre-operative Note COVID-19 COVID-19 status: Not tested Interval Note History & Physical reviewed/Exam performed by Physician: Yes Changes to H&P: No ASA Class (for procedural sedation): III
--- NOTE | 2024-02-25 12:21 | SUR.OPER ---
Supine on padded OR bed, head on pillow, arms secured on padded arm boards at <90 degrees abduction, legs uncrossed, safety belt at thigh, tape over blanket over lower legs.
[2024-02-25] MEDS: BUPIVACAINE 0.5% (PF) 30 ML, EPINEPHrine 0.15 MG INJ (12:26)
[2024-02-25] MEDS: METHYLENE BLUE 50 MG/10 ML VIAL IV (12:28)
[2024-02-25] MEDS: LACTATED RINGERS 1,000 ML 42 ML IV ×2 (13:20→14:41)
--- NOTE | 2024-02-25 14:04 | PM.OP.1 ---
Operative Date/Time/Diagnoses Date of procedure: 02/25/24 Time of procedure: 14:05 Pre-op diagnosis: Melanoma of the left arm Post-op diagnosis: same Procedure & Clinicians Procedure: Wide local excision of left arm melanoma Rotational flap reconstruction [place] node biopsy Same procedure as scheduled: Yes Surgeon: David Grossman Anesthesia Type: General Operative Notes Procedure in detail: The patient had injection of radiotracer at Radiology in the morning prior to surgery however no tracer was visualized migrating away from the injection site. The patient was then brought to the operating room and general anesthesia was induced. The patient was positioned supine with the left arm abducted. 2 mL of methylene blue were injected close to left arm biopsy scar. The arm was massaged for 5 minutes. Next, left axilla was prepped and draped in the usual fashion. A time-out was performed. We started with the sentinel lymph node biopsy. Probe was used to identify a potential sentinel node but no definitive signal was found. We then made a 5 cm transverse incision at the inferior hairline of the left axilla and entered the axillary fat. The probe was again used but no definitive signal above the background was found. No blue dye was noted. We therefore aborted the sentinel lymph node biopsy. The wound was then closed in layers using multiple interrupted 3-0 Vicryl dermal sutures followed by a running 4-0 Monocryl subcuticular stitch. Next we we repositioned the patient in a semi lateral position with the left arm draped over her chest exposing the posterior triceps area. The arm was prepped and draped. We measured 1 cm margins around the old biopsy site in all directions. We then excised an ellipse around the old biopsy site down to the fascia. This was marked with a short stitch along the superior aspect and a long stitch along the lateral or posterior aspect. We then created a rotational flap taking skin and adipose tissue from posterior aspect over the triceps muscle. The rotational flap was brought into close the defect. A small triangular back cut was made at the posterior proximal aspect of the flap to allow the skin to lay flat. The wound was then closed in layers using multiple interrupted 3-0 Vicryl dermal sutures followed by 3-0 nylon mattress sutures and a few 4-0 Monocryl stitches. Steri-Strips and gauze were applied over the axillary wound followed by Medipore tape. Xeroform gauze, ABDs and Medipore tape were used over the left arm wound. The patient was awakened and brought to recovery room. EBL: 10 mL Specimen: Left arm melanoma Post-operative Condition: stable Disposition: PACU
[2024-02-25] MEDS: OXYCODONE/ACETAMINOPHEN 5/325 TABLET 1 TAB PO (14:32)
--- NOTE | 2024-02-25 16:05 | SUR.PHASEII ---
Call from Dr Grossman. Clarified dressing can come off tomorrow. Leave Steri strips to armpit in place. May cover sutures on arm for comfort. May shower.
--- NOTE | 2024-02-25 16:41 | SUR.PHASEII ---
Payton called and updated regarding dressing/steri strips.
== END 2024-02-25 15:37 | disposition home or self-care (01) ==
PROVIDERS: PCP Family Medicine; Referring Provider Surgery; Visit Provider Surgery
PROC: (CPT 38500; principal; 2024-02-25 11:45)
DX: C43.62 Malignant melanoma of left upper limb, including shoulder (principal); D22.62 Melanocytic nevi of left upper limb, including shoulder
CPT/HCPCS: 38500; 14020; 78195; A9541; J0171; J1100; J2405; J2704; J3010; Q9968

== ENCOUNTER → 2024-04-21 10:14 | Outpatient (CLI) | payer OTHER, SELFPAY ==
--- NOTE | 2024-04-21 10:15 | DI.US.S_ITS ---
PROCEDURE: US EXTREMITY NONVASC LOWER LT INDICATIONS: bakers cyst TECHNIQUE: Real-time scanning was performed of the left lower extremity , with image documentation. COMPARISON: None. FINDINGS: Jones cyst is present posteriorly measuring 2.6 x 0.9 x 2.2 cm. IMPRESSION: Popliteal fossa Jones cyst. Dictated by: Hanny Guaman M.D. on 04/21/2024 at 13:38 Approved by: Hanny Guaman M.D. on 04/21/2024 at 13:39
== END ==
PROVIDERS: PCP Family Medicine; Referring Provider Family Medicine; Visit Provider Family Medicine
DX: M71.22 Synovial cyst of popliteal space [Baker], left knee (principal)
CPT/HCPCS: 76882

== ENCOUNTER 2024-07-28 09:45 | Outpatient (RCR) | payer OTHER, SELFPAY ==
--- NOTE | 2024-06-23 15:55 | PT.OIE ---
Current Diagnoses Synovial cyst of popliteal space [Jones], left knee (06/23/24) Juvenile osteochondrosis of hip and pelvis, unspecified, unspecified leg (06/23/24) Difficulty in walking, not elsewhere classified (06/23/24) Weakness (06/23/24) Past Medical History (Last Reviewed 03/12/24 @ 10:14 by Herman Thornton RN) BCC (basal cell carcinoma), face (1996) Chicken pox Eczema Fecal incontinence Foot pain (2001) Hayfever Hearing loss (1989) Hemorrhoids (1974) Measles Mumps Osteoarthritis (~1999) Retinal detachment Rosacea Rubella Shoulder pain (2013) Vertigo Past Surgical History (Last Reviewed 03/12/24 @ 10:14 by Herman Thornton RN) Anesthesia History of biopsy (01/14/24) History of nasal surgery (1961) History of third molar tooth extraction (1965) History of tonsillectomy (1947) Status post tubal ligation (1979) Visit Care Team Role Provider Type Emily Fall DO Attending Provider Physician Family Provider Primary Care Provider Referring Provider Specialty: [facility] Practice Address: [address] [place] [address], [address], [facility] Email: [email or web address] Physical Therapy Initial Evaluation PT-OP-A Visit Information Start: 06/19/24 17:38 Freq: Status: Active Protocol: Document 06/23/24 09:51 [facility] (Rec: 06/23/24 10:36 [facility] [id number]) Out-Patient Physical Therapy Visit Information Visit Information Visit Type Initial Evaluation Visit Note 10/24 Visit Start Time 09:53 Visit Stop Time 10:35 Visit Number 10/29 Number of ELECTRICAL TEST TECHNICIAN Visits 0 PT-OP-B Current Condition Start: 06/19/24 17:38 Freq: Status: Active Protocol: Document 06/23/24 09:51 [facility] (Rec: 06/23/24 10:36 [facility] [id number]) Current Condition History of Current Condition Onset Date since 25 years old Current Complaints B knee pain History of Current Condition Pt reports progressive inc kne epain. Reports her entire family has knee problems and reprots she is really prone to tendonitis. Had hydrolaunic shots B knees w/o any help 10 years ago. 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 She has bakers cysts B post knees. She likes to walk everyday and walks on dirt since it is [place] her body. She was on vacation for the past few weeks and didn't have steps and that helped. She did keep taking voltaren and CBD when on vacation. Both knees give her problems equally but different areas. Since 25 yo hasn't been able to do kneel. Doesn't do well on big steps. Pain has been escalating in past few years. She still walks 1-2 miles 4x/wk. Was doing 2.5 to 3 miles about 1 year ago. Sometimes that is okay and sometimes not. Reports some LBP sometimes and notes she has osteopenia and maybe osteoporosis. Quit doing chiro since december and had stopped after sx for melanoma in arm. DIdn't feel like h needed it anymore. Feels not as sure of her balance in the garden. Treatment Goals Patient/Caregiver Goals improve knee strength; feel more confident in garden, inc walk distance again PT-OP-C Subjective Start: 06/19/24 17:38 Freq: Status: Active Protocol: Document 06/23/24 09:51 [facility] (Rec: 06/23/24 10:36 [facility] [id number]) Patient Questionnaires Lower Extremity Functional Scale LEFS Score 51/80 OP-PT Pain Assessment Location R knee Pain Location Details inf knee, med knee, lat knee, occ post knee Intensity 7 Scale Used Numeric (0 - 10) Description Aching,Sharp,With Movement Frequency Intermittent Pain Aggravating Factors Standing,Walking,Stair Climbing Other Pain Aggravating Factors s/l sleep,standing up after sit extended, squat Other Pain Alleviating Factors voltaren, CBD L knee Pain Location Details med knee & post knee & some inf knee Intensity 7 Scale Used Numeric (0 - 10) Description Aching,Sharp,With Movement Frequency Frequent Pain Duration goes away relatively quickly Pain Aggravating Factors Standing,Walking,Stair Climbing Other Pain Aggravating Factors s/l sleep,standing up after sit extended, squat Other Pain Alleviating Factors voltaren, CBD PT-OP-D Balance Start: 06/19/24 17:38 Freq: Status: Active Protocol: Document 06/23/24 09:51 [facility] (Rec: 06/23/24 10:36 [facility] [id number]) Balance Tests Single Limb Standing Single Limb- Right 9 sec Single Limb- Left 11 sec PT-OP-G Mobility & Gait Start: 06/19/24 17:38 Freq: Status: Active Protocol: Document 06/23/24 09:51 [facility] (Rec: 06/23/24 10:36 [facility] [id number]) OP Gait Assessment Comments Gait Comments louder impact on RLE; dec push off B PT-OP-J Posture/Palpation/Skin Start: 06/19/24 17:38 Freq: Status: Active Protocol: Document 06/23/24 09:51 [facility] (Rec: 06/23/24 10:36 [facility] [id number]) Posture Evaluation Comments Posture Comments B minor valgus, L>R femoral IR ; L tibia ER; R>L toe out PT-OP-K Range of Motion Start: 06/19/24 17:38 Freq: Status: Active Protocol: Document 06/23/24 09:51 [facility] (Rec: 06/23/24 10:36 [facility] [id number]) Knee Goniometric Range of Motion Knee Right Flexion Active (degrees) 129 Extension Active (degrees) 9 Comments pain ant knee w/ext Left Flexion Active (degrees) 114 Extension Active (degrees) 15 Comments pain ant knee w/ext & post w/ flex PT-OP-L Special Tests Start: 06/19/24 17:38 Freq: Status: Active Protocol: Document 06/23/24 09:51 [facility] (Rec: 06/23/24 10:36 [facility] [id number]) Special Tests Knee Special Tests Belkis Test Test Results neg B SLR Comments mild tightness L but slightly more R liagmentous Test Results neg all 4 planes b PT-OP-M Strength Start: 06/19/24 17:38 Freq: Status: Active Protocol: Document 06/23/24 09:51 [facility] (Rec: 06/23/24 10:36 [facility] [id number]) Hip Strength Hip Manual Muscle Testing Right Flexion (L2) 4- Good- Extension (S1) 3 Fair Abduction 3+ Fair+ Adduction 5 Normal External Rotation 3+ Fair+ Internal Rotation 4- Good- Left Flexion (L2) 4- Good- Extension (S1) 3 Fair Abduction 4 Good Adduction 5 Normal External Rotation 3+ Fair+ Internal Rotation 4- Good- Comments pain L knee w/flex & IR; pain LB w/ext Knee Strength Knee Manual Muscle Testing Right Flexion (S2) 4 Good Extension (L3) 4 Good Left Flexion (S2) 4- Good- Extension (L3) 4- Good- Comments pain Ankle/Foot Strength Ankle and Foot Manual Muscle Testing Right Dorsiflexion (L4) 4 Good Plantarflexion (S1) 5 Normal Left Dorsiflexion (L4) 4 Good Plantarflexion (S1) 5 Normal Comments 20 heel raises B R>L knee pain PT-OP-Q Treatments Start: 06/19/24 17:38 Freq: Status: Active Protocol: Document 06/23/24 09:51 [facility] (Rec: 06/23/24 10:36 [facility] [id number]) Self-Care/Home Management Treatment Education Other Education 10 min: PT-OP-T Assessment and Plan Start: 06/19/24 17:38 Freq: Status: Active Protocol: Document 06/23/24 09:51 [facility] (Rec: 06/23/24 10:36 [facility] [id number]) Physical Therapy Assessment Rehab Potential Rehabilitation Potential Good Evaluation Complexity Number of Personal Factors/Comorbidities 3 or More Number of Body Systems Impaired 4 or More Clinical Presentation at Evaluation Evolving Impairments Impairments Activity Tolerance,Balance, Functional Activities, Functional Mobility,Gait,Pain, Posture,ROM,Soft Tissue Mobility,Strength Other Concerns Barriers to Rehabilitation $40 copay per visit Goals strength Short Term Goal (STG) Pt will be indep w/HEP STG Duration 07/19 Principal Security Architect Goal (LTG) Pt will score at least 4+/5 on all BLE MMT to show improved strength and stability of knees LTG Duration 09/01 balance Principal Security Architect Goal (LTG) Pt will be able to do SLS for 15 sec B w/o inc pain to improve steadiness in garden LTG Duration 09/01 activity Short Term Goal (STG) Pt will report being able to sleep through the night w/o inc pain STG Duration 08/01 Usp Goal (LTG) Pt will be able to squat and garden as needed w/o pain greater than 3/10 LTG Duration 09/01 Assessment Summary Assessment Pt presents w/B knee pain that has progressively gotten worse over several years. She has now had to dec her walks and was seen last year by ortho who tried conservative measures to start, but did note med compartmental arthritis. Pt has post and ant knee pain in B knees and does have weakness of BLEs which likely contributes to the pain . She would benefit from skilled PT to address her gait , balance, strength and mobility in order to dec pain. Physical Therapy Plan Frequency and Duration Frequency of Treatment 1-2x/wk Duration of treatment (weeks) 10 Plan of Care Start Date 06/23/24 Plan of Care End Date 09/01/24 Therapeutic Interventions Therapeutic Interventions Balance Training,Gait Training ,Home Exercise Program,Joint Mobilizations,Manual Therapy, Neuromuscular Re-education, Patient/Caregiver Education, Self-Care/Home Management,Soft Tissue Mobilization,Taping, Therapeutic Activities, Therapeutic Exercises Modalities Cold Pack/Ice Massage,Electric Stimulation,Hot Packs, Infrared Therapy,Ultrasound Next Visit Focus/Plan Next Note Type Treatment Note Next Visit Plan sidesteps resisted; give tandem/SLS, try balance board in clinic and hurdles, leg press, sit to stands if pt can tolerate or mini squats, quad set into towel Manual: STM to HS, calf, quads , ITB, tibfem mobs and patellofemoral mobs taping for B knees
--- NOTE | 2024-06-23 15:55 | PT.OPPOC ---
Physical, Occupational & Speech Therapy At [facility] Current Diagnoses Synovial cyst of popliteal space [Jones], left knee (06/23/24) Juvenile osteochondrosis of hip and pelvis, unspecified, unspecified leg (06/23/24) Difficulty in walking, not elsewhere classified (06/23/24) Weakness (06/23/24) Visit Care Team Role Provider Type Emily Fall DO Attending Provider Physician Family Provider Primary Care Provider Referring Provider Specialty: Family Practice Address: [address] [place] [address], [address], [address] Email: [email or web address] Plan Of Care PT-OP-B Current Condition Start: 06/19/24 17:38 Freq: Status: Active Protocol: Document 06/23/24 09:51 [facility] (Rec: 06/23/24 10:36 [facility] [id number]) Current Condition History of Current Condition Onset Date since 25 years old Current Complaints B knee pain History of Current Condition Pt reports progressive inc kne epain. Reports her entire family has knee problems and reprots she is really prone to tendonitis. Had hydrolaunic shots B knees w/o any help 10 years ago. 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 She has bakers cysts B post knees. She likes to walk everyday and walks on dirt since it is [place] her body. She was on vacation for the past few weeks and didn't have steps and that helped. She did keep taking voltaren and CBD when on vacation. Both knees give her problems equally but different areas. Since 25 yo hasn't been able to do kneel. Doesn't do well on big steps. Pain has been escalating in past few years. She still walks 1-2 miles 4x/wk. Was doing 2.5 to 3 miles about 1 year ago. Sometimes that is okay and sometimes not. Reports some LBP sometimes and notes she has osteopenia and maybe osteoporosis. Quit doing chiro since december and had stopped after sx for melanoma in arm. DIdn't feel like seh needed it anymore. Feels not as sure of her balance in the garden. Treatment Goals Patient/Caregiver Goals improve knee strength; feel more confident in garden, inc walk distance again PT-OP-T Assessment and Plan Start: 06/19/24 17:38 Freq: Status: Active Protocol: Document 06/23/24 09:51 [facility] (Rec: 06/23/24 10:36 [facility] [id number]) Physical Therapy Assessment Rehab Potential Rehabilitation Potential Good Evaluation Complexity Number of Personal Factors/Comorbidities 3 or More Number of Body Systems Impaired 4 or More Clinical Presentation at Evaluation Evolving Impairments Impairments Activity Tolerance,Balance, Functional Activities, Functional Mobility,Gait,Pain, Posture,ROM,Soft Tissue Mobility,Strength Other Concerns Barriers to Rehabilitation $40 copay per visit Goals strength Short Term Goal (STG) Pt will be indep w/HEP STG Duration 07/19 Assisted Goal (LTG) Pt will score at least 4+/5 on all BLE MMT to show improved strength and stability of knees LTG Duration 09/01 balance Assisted Goal (LTG) Pt will be able to do SLS for 15 sec B w/o inc pain to improve steadiness in garden LTG Duration 09/01 activity Short Term Goal (STG) Pt will report being able to sleep through the night w/o inc pain STG Duration 08/01 Acquisition Analyst Goal (LTG) Pt will be able to squat and garden as needed w/o pain greater than 3/10 LTG Duration 09/01 Assessment Summary Assessment Pt presents w/B knee pain that has progressively gotten worse over several years. She has now had to dec her walks and was seen last year by ortho who tried conservative measures to start, but did note med compartmental arthritis. Pt has post and ant knee pain in B knees and does have weakness of BLEs which likely contributes to the pain . She would benefit from skilled PT to address her gait , balance, strength and mobility in order to dec pain. Physical Therapy Plan Frequency and Duration Frequency of Treatment 1-2x/wk Duration of treatment (weeks) 10 Plan of Care Start Date 06/23/24 Plan of Care End Date 09/01/24 Therapeutic Interventions Therapeutic Interventions Balance Training,Gait Training ,Home Exercise Program,Joint Mobilizations,Manual Therapy, Neuromuscular Re-education, Patient/Caregiver Education, Self-Care/Home Management,Soft Tissue Mobilization,Taping, Therapeutic Activities, Therapeutic Exercises Modalities Cold Pack/Ice Massage,Electric Stimulation,Hot Packs, Infrared Therapy,Ultrasound Next Visit Focus/Plan Next Note Type Treatment Note Next Visit Plan sidesteps resisted; give tandem/SLS, try balance board in clinic and hurdles, leg press, sit to stands if pt can tolerate or mini squats, quad set into towel Manual: STM to HS, calf, quads , ITB, tibfem mobs and patellofemoral mobs taping for B knees Plan of Care Dates Plan of Care Start Date 06/23/24 Plan of Care End Date 09/01/24 Electronically Signed by: Renetta Sheikh, PT 06/24/24 [id number] If you are in agreement with this Plan of Care, please return a signed and dated copy. I have reviewed this Plan of Care and certify that the skilled therapy services above are required to meet the patient?s needs. Physician Signature Date Printed Name and Credentials Clinical Instructor Signature Printed Name and Credentials
--- NOTE | 2024-06-23 15:59 | PT.OIE ---
Current Diagnoses Synovial cyst of popliteal space [Jones], left knee (06/23/24) Juvenile osteochondrosis of hip and pelvis, unspecified, unspecified leg (06/23/24) Difficulty in walking, not elsewhere classified (06/23/24) Weakness (06/23/24) Past Medical History (Last Reviewed 03/12/24 @ 10:14 by Herman Thornton RN) BCC (basal cell carcinoma), face (1996) Chicken pox Eczema Fecal incontinence Foot pain (2001) Hayfever Hearing loss (1989) Hemorrhoids (1974) Measles Mumps Osteoarthritis (~1999) Retinal detachment Rosacea Rubella Shoulder pain (2013) Vertigo Past Surgical History (Last Reviewed 03/12/24 @ 10:14 by Herman Thornton RN) Anesthesia History of biopsy (01/14/24) History of nasal surgery (1961) History of third molar tooth extraction (1965) History of tonsillectomy (1947) Status post tubal ligation (1979) Visit Care Team Role Provider Type Emily Fall DO Attending Provider Physician Family Provider Primary Care Provider Referring Provider Specialty: [facility] Practice Address: [address] [place] [address], [address], [facility] Email: [email or web address] Physical Therapy Initial Evaluation PT-OP-A Visit Information Start: 06/19/24 17:38 Freq: Status: Active Protocol: Document 06/23/24 09:51 [facility] (Rec: 06/23/24 10:36 [facility] [id number]) Out-Patient Physical Therapy Visit Information Visit Information Visit Type Initial Evaluation Visit Note 10/24 Visit Start Time 09:53 Visit Stop Time 10:35 Visit Number 10/29 Number of RUBBER TUBING SPLICER Visits 0 PT-OP-B Current Condition Start: 06/19/24 17:38 Freq: Status: Active Protocol: Document 06/23/24 09:51 [facility] (Rec: 06/23/24 10:36 [facility] [id number]) Current Condition History of Current Condition Onset Date since 25 years old Current Complaints B knee pain History of Current Condition Pt reports progressive inc kne epain. Reports her entire family has knee problems and reprots she is really prone to tendonitis. Had hydrolaunic shots B knees w/o any help 10 years ago. 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 She has bakers cysts B post knees. She likes to walk everyday and walks on dirt since it is [place] her body. She was on vacation for the past few weeks and didn't have steps and that helped. She did keep taking voltaren and CBD when on vacation. Both knees give her problems equally but different areas. Since 25 yo hasn't been able to do kneel. Doesn't do well on big steps. Pain has been escalating in past few years. She still walks 1-2 miles 4x/wk. Was doing 2.5 to 3 miles about 1 year ago. Sometimes that is okay and sometimes not. Reports some LBP sometimes and notes she has osteopenia and maybe osteoporosis. Quit doing chiro since december and had stopped after sx for melanoma in arm. DIdn't feel like h needed it anymore. Feels not as sure of her balance in the garden. Treatment Goals Patient/Caregiver Goals improve knee strength; feel more confident in garden, inc walk distance again PT-OP-C Subjective Start: 06/19/24 17:38 Freq: Status: Active Protocol: Document 06/23/24 09:51 [facility] (Rec: 06/23/24 10:36 [facility] [id number]) Patient Questionnaires Lower Extremity Functional Scale LEFS Score 51/80 OP-PT Pain Assessment Location R knee Pain Location Details inf knee, med knee, lat knee, occ post knee Intensity 7 Scale Used Numeric (0 - 10) Description Aching,Sharp,With Movement Frequency Intermittent Pain Aggravating Factors Standing,Walking,Stair Climbing Other Pain Aggravating Factors s/l sleep,standing up after sit extended, squat Other Pain Alleviating Factors voltaren, CBD L knee Pain Location Details med knee & post knee & some inf knee Intensity 7 Scale Used Numeric (0 - 10) Description Aching,Sharp,With Movement Frequency Frequent Pain Duration goes away relatively quickly Pain Aggravating Factors Standing,Walking,Stair Climbing Other Pain Aggravating Factors s/l sleep,standing up after sit extended, squat Other Pain Alleviating Factors voltaren, CBD PT-OP-D Balance Start: 06/19/24 17:38 Freq: Status: Active Protocol: Document 06/23/24 09:51 [facility] (Rec: 06/23/24 10:36 [facility] [id number]) Balance Tests Single Limb Standing Single Limb- Right 9 sec Single Limb- Left 11 sec PT-OP-G Mobility & Gait Start: 06/19/24 17:38 Freq: Status: Active Protocol: Document 06/23/24 09:51 [facility] (Rec: 06/23/24 10:36 [facility] [id number]) OP Gait Assessment Comments Gait Comments louder impact on RLE; dec push off B PT-OP-J Posture/Palpation/Skin Start: 06/19/24 17:38 Freq: Status: Active Protocol: Document 06/23/24 09:51 [facility] (Rec: 06/23/24 10:36 [facility] [id number]) Posture Evaluation Comments Posture Comments B minor valgus, L>R femoral IR ; L tibia ER; R>L toe out PT-OP-K Range of Motion Start: 06/19/24 17:38 Freq: Status: Active Protocol: Document 06/23/24 09:51 [facility] (Rec: 06/23/24 10:36 [facility] [id number]) Knee Goniometric Range of Motion Knee Right Flexion Active (degrees) 129 Extension Active (degrees) 9 Comments pain ant knee w/ext Left Flexion Active (degrees) 114 Extension Active (degrees) 15 Comments pain ant knee w/ext & post w/ flex PT-OP-L Special Tests Start: 06/19/24 17:38 Freq: Status: Active Protocol: Document 06/23/24 09:51 [facility] (Rec: 06/23/24 10:36 [facility] [id number]) Special Tests Knee Special Tests Belkis Test Test Results neg B SLR Comments mild tightness L but slightly more R liagmentous Test Results neg all 4 planes b PT-OP-M Strength Start: 06/19/24 17:38 Freq: Status: Active Protocol: Document 06/23/24 09:51 [facility] (Rec: 06/23/24 10:36 [facility] [id number]) Hip Strength Hip Manual Muscle Testing Right Flexion (L2) 4- Good- Extension (S1) 3 Fair Abduction 3+ Fair+ Adduction 5 Normal External Rotation 3+ Fair+ Internal Rotation 4- Good- Left Flexion (L2) 4- Good- Extension (S1) 3 Fair Abduction 4 Good Adduction 5 Normal External Rotation 3+ Fair+ Internal Rotation 4- Good- Comments pain L knee w/flex & IR; pain LB w/ext Knee Strength Knee Manual Muscle Testing Right Flexion (S2) 4 Good Extension (L3) 4 Good Left Flexion (S2) 4- Good- Extension (L3) 4- Good- Comments pain Ankle/Foot Strength Ankle and Foot Manual Muscle Testing Right Dorsiflexion (L4) 4 Good Plantarflexion (S1) 5 Normal Left Dorsiflexion (L4) 4 Good Plantarflexion (S1) 5 Normal Comments 20 heel raises B R>L knee pain PT-OP-Q Treatments Start: 06/19/24 17:38 Freq: Status: Active Protocol: Document 06/23/24 09:51 [facility] (Rec: 06/23/24 10:36 [facility] [id number]) Self-Care/Home Management Treatment Education Other Education 10 min: edu on findings including on how weakness of mm of hip and knee likely affecting inc in pain along w/ dec balance. edu on lack of ROM in L>R knee and how that can affect mobility also and ease in garden. PT-OP-T Assessment and Plan Start: 06/19/24 17:38 Freq: Status: Active Protocol: Document 06/23/24 09:51 [facility] (Rec: 06/23/24 10:36 [facility] [id number]) Physical Therapy Assessment Rehab Potential Rehabilitation Potential Good Evaluation Complexity Number of Personal Factors/Comorbidities 3 or More Number of Body Systems Impaired 4 or More Clinical Presentation at Evaluation Evolving Impairments Impairments Activity Tolerance,Balance, Functional Activities, Functional Mobility,Gait,Pain, Posture,ROM,Soft Tissue Mobility,Strength Other Concerns Barriers to Rehabilitation $40 copay per visit Goals strength Short Term Goal (STG) Pt will be indep w/HEP STG Duration 07/19 Clearing Supervisor Goal (LTG) Pt will score at least 4+/5 on all BLE MMT to show improved strength and stability of knees LTG Duration 09/01 balance Mcc Goal (LTG) Pt will be able to do SLS for 15 sec B w/o inc pain to improve steadiness in garden LTG Duration 09/01 activity Short Term Goal (STG) Pt will report being able to sleep through the night w/o inc pain STG Duration 08/01 Mcc Goal (LTG) Pt will be able to squat and garden as needed w/o pain greater than 3/10 LTG Duration 09/01 Assessment Summary Assessment Pt presents w/B knee pain that has progressively gotten worse over several years. She has now had to dec her walks and was seen last year by ortho who tried conservative measures to start, but did note med compartmental arthritis. Pt has post and ant knee pain in B knees and does have weakness of BLEs which likely contributes to the pain . She would benefit from skilled PT to address her gait , balance, strength and mobility in order to dec pain. Physical Therapy Plan Frequency and Duration Frequency of Treatment 1-2x/wk Duration of treatment (weeks) 10 Plan of Care Start Date 06/23/24 Plan of Care End Date 09/01/24 Therapeutic Interventions Therapeutic Interventions Balance Training,Gait Training ,Home Exercise Program,Joint Mobilizations,Manual Therapy, Neuromuscular Re-education, Patient/Caregiver Education, Self-Care/Home Management,Soft Tissue Mobilization,Taping, Therapeutic Activities, Therapeutic Exercises Modalities Cold Pack/Ice Massage,Electric Stimulation,Hot Packs, Infrared Therapy,Ultrasound Next Visit Focus/Plan Next Note Type Treatment Note Next Visit Plan sidesteps resisted; give tandem/SLS, try balance board in clinic and hurdles, leg press, sit to stands if pt can tolerate or mini squats, quad set into towel Manual: STM to HS, calf, quads , ITB, tibfem mobs and patellofemoral mobs taping for B knees
--- NOTE | 2024-06-26 12:14 | PT.OTN ---
Current Diagnoses Synovial cyst of popliteal space [Jones], left knee (06/26/24) Juvenile osteochondrosis of hip and pelvis, unspecified, unspecified leg (06/26/24) Difficulty in walking, not elsewhere classified (06/26/24) Weakness (06/26/24) Physical Therapy Treatment Note PT-OP-A Visit Information Start: 06/19/24 17:38 Freq: Status: Active Protocol: Document 06/26/24 09:50 [facility] (Rec: 06/26/24 12:13 [facility] [id number]) Out-Patient Physical Therapy Visit Information Visit Information Visit Type Treatment Note Visit Note 11/24 Visit Start Time 09:50 Visit Stop Time 10:30 Visit Number 11/29 Number of SCRAPER LOADER OPERATOR Visits 0 PT-OP-B Current Condition Start: 06/19/24 17:38 Freq: Status: Active Protocol: Document 06/23/24 09:51 [facility] (Rec: 06/23/24 10:36 [facility] [id number]) Current Condition History of Current Condition Onset Date since 25 years old Current Complaints B knee pain History of Current Condition Pt reports progressive inc kne epain. Reports her entire family has knee problems and reprots she is really prone to tendonitis. Had hydrolaunic shots B knees w/o any help 10 years ago. 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 She has bakers cysts B post knees. She likes to walk everyday and walks on dirt since it is [place] her body. She was on vacation for the past few weeks and didn't have steps and that helped. She did keep taking voltaren and CBD when on vacation. Both knees give her problems equally but different areas. Since 25 yo hasn't been able to do kneel. Doesn't do well on big steps. Pain has been escalating in past few years. She still walks 1-2 miles 4x/wk. Was doing 2.5 to 3 miles about 1 year ago. Sometimes that is okay and sometimes not. Reports some LBP sometimes and notes she has osteopenia and maybe osteoporosis. Quit doing chiro since december and had stopped after sx for melanoma in arm. DIdn't feel like seh needed it anymore. Feels not as sure of her balance in the garden. Treatment Goals Patient/Caregiver Goals improve knee strength; feel more confident in garden, inc walk distance again PT-OP-C Subjective Start: 06/19/24 17:38 Freq: Status: Active Protocol: Document 06/26/24 09:50 [facility] (Rec: 06/26/24 12:13 [facility] [id number]) OP-PT Subjective Patient Comments Patient Comments No issues w/KT tape last time she did PT PT-OP-D Balance Start: 06/19/24 17:38 Freq: Status: Active Protocol: Document 06/23/24 09:51 [facility] (Rec: 06/23/24 10:36 [facility] [id number]) Balance Tests Single Limb Standing Single Limb- Right 9 sec Single Limb- Left 11 sec PT-OP-G Mobility & Gait Start: 06/19/24 17:38 Freq: Status: Active Protocol: Document 06/23/24 09:51 [facility] (Rec: 06/23/24 10:36 [facility] [id number]) OP Gait Assessment Comments Gait Comments louder impact on RLE; dec push off B PT-OP-J Posture/Palpation/Skin Start: 06/19/24 17:38 Freq: Status: Active Protocol: Document 06/23/24 09:51 [facility] (Rec: 06/23/24 10:36 [facility] [id number]) Posture Evaluation Comments Posture Comments B minor valgus, L>R femoral IR ; L tibia ER; R>L toe out PT-OP-K Range of Motion Start: 06/19/24 17:38 Freq: Status: Active Protocol: Document 06/23/24 09:51 [facility] (Rec: 06/23/24 10:36 [facility] [id number]) Knee Goniometric Range of Motion Knee Right Flexion Active (degrees) 129 Extension Active (degrees) 9 Comments pain ant knee w/ext Left Flexion Active (degrees) 114 Extension Active (degrees) 15 Comments pain ant knee w/ext & post w/ flex PT-OP-L Special Tests Start: 06/19/24 17:38 Freq: Status: Active Protocol: Document 06/23/24 09:51 [facility] (Rec: 06/23/24 10:36 [facility] [id number]) Special Tests Knee Special Tests Belkis Test Test Results neg B SLR Comments mild tightness L but slightly more R liagmentous Test Results neg all 4 planes b PT-OP-M Strength Start: 06/19/24 17:38 Freq: Status: Active Protocol: Document 06/23/24 09:51 [facility] (Rec: 06/23/24 10:36 [facility] [id number]) Hip Strength Hip Manual Muscle Testing Right Flexion (L2) 4- Good- Extension (S1) 3 Fair Abduction 3+ Fair+ Adduction 5 Normal External Rotation 3+ Fair+ Internal Rotation 4- Good- Left Flexion (L2) 4- Good- Extension (S1) 3 Fair Abduction 4 Good Adduction 5 Normal External Rotation 3+ Fair+ Internal Rotation 4- Good- Comments pain L knee w/flex & IR; pain LB w/ext Knee Strength Knee Manual Muscle Testing Right Flexion (S2) 4 Good Extension (L3) 4 Good Left Flexion (S2) 4- Good- Extension (L3) 4- Good- Comments pain Ankle/Foot Strength Ankle and Foot Manual Muscle Testing Right Dorsiflexion (L4) 4 Good Plantarflexion (S1) 5 Normal Left Dorsiflexion (L4) 4 Good Plantarflexion (S1) 5 Normal Comments 20 heel raises B R>L knee pain PT-OP-Q Treatments Start: 06/19/24 17:38 Freq: Status: Active Protocol: Document 06/26/24 09:50 [facility] (Rec: 06/26/24 12:13 [facility] [id number]) Therapeutic Exercises Supine Exercises quad set Supine Exercise Name into pillow folded Side bilateral Reps/Minutes 5 sec x12 Standing Exercises squats Standing Exercise Name partial Side bilateral Equipment Used counter Reps/Minutes 12 Comments cues buttocks back and squeeze back up; cues knee alignment sidesteps Side bilateral Equipment Used orange band Reps/Minutes 20ft ea Manual Therapy Treatment Consent Patient gave verbal consent for manual Yes treatment Soft Tissue Mobilization peroneals Body Location L Mobilization Type Rolling Intensity/Depth Moderate Body Position Supine Comments w/pillow under knees ITB Body Location b Mobilization Type Rolling Intensity/Depth Moderate Body Position Supine Comments w/pillow under knees quad Body Location B & R patellar tendon Mobilization Type Rolling Intensity/Depth Moderate Body Position Supine Comments w/pillow under knees Joint Mobilizations tibfib Joint L Direction AP Grade II Body Position Supine patellofemoral Joint B Direction sup, inf, med Grade II Body Position Supine Neuro Re-Education Treatment Balance Activities SLS Comments B trials tandem Comments B trials PT-OP-T Assessment and Plan Start: 06/19/24 17:38 Freq: Status: Active Protocol: Document 06/26/24 09:50 [facility] (Rec: 06/26/24 12:13 [facility] [id number]) Physical Therapy Assessment Goals strength Short Term Goal (STG) Pt will be indep w/HEP STG Duration 07/19 Salvationist Goal (LTG) Pt will score at least 4+/5 on all BLE MMT to show improved strength and stability of knees LTG Duration 09/01 balance Fdc Goal (LTG) Pt will be able to do SLS for 15 sec B w/o inc pain to improve steadiness in garden LTG Duration 09/01 activity Short Term Goal (STG) Pt will report being able to sleep through the night w/o inc pain STG Duration 08/01 Salvationist Goal (LTG) Pt will be able to squat and garden as needed w/o pain greater than 3/10 LTG Duration 09/01 Assessment Summary Assessment Pt tolerated exercises well and encouraged to stay under 3 /10 pain when doing exercises. She tolerated manual well but notable tension in mm and tendons around B knees. Physical Therapy Plan Next Visit Focus/Plan Next Note Type Treatment Note Next Visit Plan HEP:mini squats, quad set into towel, sidesteps resisted; tandem/SLS, try balance board in clinic and hurdles, leg press, Manual: STM to HS, calf, quads , ITB, tibfem mobs and patellofemoral mobs taping for B knees
--- NOTE | 2024-07-04 10:30 | PT.OTN ---
Current Diagnoses Synovial cyst of popliteal space [Jones], left knee (07/04/24) Juvenile osteochondrosis of hip and pelvis, unspecified, unspecified leg (07/04/24) Difficulty in walking, not elsewhere classified (07/04/24) Weakness (07/04/24) Physical Therapy Treatment Note PT-OP-A Visit Information Start: 06/19/24 17:38 Freq: Status: Active Protocol: Document 07/04/24 09:48 SP (Rec: 07/04/24 10:34 SP [id number]) Out-Patient Physical Therapy Visit Information Visit Information Visit Type Treatment Note Visit Note 12/22 Visit Start Time 09:48 Visit Stop Time 10:30 Visit Number 12/27 Number of MEDICAL DELIVERY DRIVER Visits 1 PT-OP-B Current Condition Start: 06/19/24 17:38 Freq: Status: Active Protocol: Document 06/23/24 09:51 [facility] (Rec: 06/23/24 10:36 [facility] [id number]) Current Condition History of Current Condition Onset Date since 25 years old Current Complaints B knee pain History of Current Condition Pt reports progressive inc kne epain. Reports her entire family has knee problems and reprots she is really prone to tendonitis. Had hydrolaunic shots B knees w/o any help 10 years ago. 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 She has bakers cysts B post knees. She likes to walk everyday and walks on dirt since it is [place] her body. She was on vacation for the past few weeks and didn't have steps and that helped. She did keep taking voltaren and CBD when on vacation. Both knees give her problems equally but different areas. Since 25 yo hasn't been able to do kneel. Doesn't do well on big steps. Pain has been escalating in past few years. She still walks 1-2 miles 4x/wk. Was doing 2.5 to 3 miles about 1 year ago. Sometimes that is okay and sometimes not. Reports some LBP sometimes and notes she has osteopenia and maybe osteoporosis. Quit doing chiro since december and had stopped after sx for melanoma in arm. DIdn't feel like seh needed it anymore. Feels not as sure of her balance in the garden. Treatment Goals Patient/Caregiver Goals improve knee strength; feel more confident in garden, inc walk distance again PT-OP-C Subjective Start: 06/19/24 17:38 Freq: Status: Active Protocol: Document 07/04/24 09:48 SP (Rec: 07/04/24 10:34 SP [id number]) OP-PT Subjective Patient Comments Patient Comments Pt reports doing well with HEP and helping, sleepign better through the night but wakes up with stiff back. The kaping hold well and thinks still ok. She hasn't had to take Voltarin lately but still taking CBD gel caplet and feeling much better. PT-OP-D Balance Start: 06/19/24 17:38 Freq: Status: Active Protocol: Document 06/23/24 09:51 [facility] (Rec: 06/23/24 10:36 [facility] [id number]) Balance Tests Single Limb Standing Single Limb- Right 9 sec Single Limb- Left 11 sec PT-OP-G Mobility & Gait Start: 06/19/24 17:38 Freq: Status: Active Protocol: Document 06/23/24 09:51 [facility] (Rec: 06/23/24 10:36 [facility] [id number]) OP Gait Assessment Comments Gait Comments louder impact on RLE; dec push off B PT-OP-J Posture/Palpation/Skin Start: 06/19/24 17:38 Freq: Status: Active Protocol: Document 06/23/24 09:51 [facility] (Rec: 06/23/24 10:36 [facility] [id number]) Posture Evaluation Comments Posture Comments B minor valgus, L>R femoral IR ; L tibia ER; R>L toe out PT-OP-K Range of Motion Start: 06/19/24 17:38 Freq: Status: Active Protocol: Document 06/23/24 09:51 [facility] (Rec: 06/23/24 10:36 [facility] [id number]) Knee Goniometric Range of Motion Knee Right Flexion Active (degrees) 129 Extension Active (degrees) 9 Comments pain ant knee w/ext Left Flexion Active (degrees) 114 Extension Active (degrees) 15 Comments pain ant knee w/ext & post w/ flex PT-OP-L Special Tests Start: 06/19/24 17:38 Freq: Status: Active Protocol: Document 06/23/24 09:51 [facility] (Rec: 06/23/24 10:36 [facility] [id number]) Special Tests Knee Special Tests Belkis Test Test Results neg B SLR Comments mild tightness L but slightly more R liagmentous Test Results neg all 4 planes b PT-OP-M Strength Start: 06/19/24 17:38 Freq: Status: Active Protocol: Document 06/23/24 09:51 [facility] (Rec: 06/23/24 10:36 [facility] [id number]) Hip Strength Hip Manual Muscle Testing Right Flexion (L2) 4- Good- Extension (S1) 3 Fair Abduction 3+ Fair+ Adduction 5 Normal External Rotation 3+ Fair+ Internal Rotation 4- Good- Left Flexion (L2) 4- Good- Extension (S1) 3 Fair Abduction 4 Good Adduction 5 Normal External Rotation 3+ Fair+ Internal Rotation 4- Good- Comments pain L knee w/flex & IR; pain LB w/ext Knee Strength Knee Manual Muscle Testing Right Flexion (S2) 4 Good Extension (L3) 4 Good Left Flexion (S2) 4- Good- Extension (L3) 4- Good- Comments pain Ankle/Foot Strength Ankle and Foot Manual Muscle Testing Right Dorsiflexion (L4) 4 Good Plantarflexion (S1) 5 Normal Left Dorsiflexion (L4) 4 Good Plantarflexion (S1) 5 Normal Comments 20 heel raises B R>L knee pain PT-OP-Q Treatments Start: 06/19/24 17:38 Freq: Status: Active Protocol: Document 07/04/24 09:48 SP (Rec: 07/04/24 10:34 SP [id number]) Therapeutic Exercises Supine Exercises quad set Supine Exercise Name into rolled towel folded Side bilateral Reps/Minutes 5 sec x12 Standing Exercises TA training Standing Exercise Name ed TA draw in, neutral spine full upright standing Comments improved with reps then improved with use mirror and chair to come to stand squats Standing Exercise Name partial/mini- HEP reviewed Side bilateral Resistance AROM- at rail then front mirror Equipment Used counter (chair behind for hip hinge feedback) Reps/Minutes 12 Comments cues buttocks back and squeeze back up; cues knee alignment with/behind toe sidesteps Standing Exercise Name HEP reviewed Side bilateral Equipment Used orange band at shins (comfort on legs vs ankles) Reps/Minutes 15ft ea x3 laps Comments good form and ft clearance Manual Therapy Treatment Soft Tissue Mobilization peroneals Body Location L Mobilization Type Rolling Intensity/Depth Moderate Body Position Supine Comments w/pillow under knees ITB Body Location b Mobilization Type Rolling Intensity/Depth Moderate Body Position Supine Comments w/pillow under knees quad Body Location B & R patellar tendon Mobilization Type Rolling Intensity/Depth Moderate Body Position Supine Comments w/pillow under knees Joint Mobilizations tibfib Joint L Direction AP Grade II Body Position Supine patellofemoral Joint B Direction sup, inf, med Grade II Body Position Supine Taping ktaping Body Location applied ktaping previous tx, still ok, not need reapply Comments L medial knee jt line prox tibia>distal quad 5cm above patella Neuro Re-Education Treatment Balance Activities hurdles Surface floor and foam Equipment 5 hurdles, near rail PRN x4 Reps/Duration 3 laps fwd Comments cued tall, TKE, slower pacing, sways but able self correction alignment with sets CGA- close SBA Self-Care/Home Management Treatment Education Patient Education Joint Protection,Pain Management,Posture,Safety Other Education 10 min: ed use pillows between BLEs Sidesleeping between BLEs and supine under prox thighs and calves for neutral spine and L knee slight hang into supportive ext- reports very comfortable on her back and knees. PT-OP-T Assessment and Plan Start: 06/19/24 17:38 Freq: Status: Active Protocol: Document 07/04/24 09:48 SP (Rec: 07/04/24 10:34 SP [id number]) Physical Therapy Assessment Goals strength Short Term Goal (STG) Pt will be indep w/HEP STG Duration 07/19 Beauty Shop Manager Goal (LTG) Pt will score at least 4+/5 on all BLE MMT to show improved strength and stability of knees LTG Duration 09/01 balance Beauty Shop Manager Goal (LTG) Pt will be able to do SLS for 15 sec B w/o inc pain to improve steadiness in garden LTG Duration 09/01 activity Short Term Goal (STG) Pt will report being able to sleep through the night w/o inc pain STG Duration 08/01 Beauty Shop Manager Goal (LTG) Pt will be able to squat and garden as needed w/o pain greater than 3/10 LTG Duration 09/01 Assessment Summary Assessment Pt tension reduction posterior L knee after manual. Reports Ktaping medial L knee still supportive so no need to retape. Cues for proper form hip hinge knees behind toes, utilized chair behind and mirror front for supportive target hip hinge and TA fac without trunk flexion into standing, resulted decreased discomfort in L knee. Education proper use pillows for LB support but allow L knee extension. Physical Therapy Plan Frequency and Duration Frequency of Treatment 1-2x/wk Duration of treatment (weeks) 10 Plan of Care Start Date 06/23/24 Plan of Care End Date 09/01/24 Therapeutic Interventions Therapeutic Interventions Balance Training,Gait Training ,Home Exercise Program,Joint Mobilizations,Manual Therapy, Neuromuscular Re-education, Patient/Caregiver Education, Self-Care/Home Management,Soft Tissue Mobilization,Taping, Therapeutic Activities, Therapeutic Exercises Modalities Cold Pack/Ice Massage,Electric Stimulation,Hot Packs, Infrared Therapy,Ultrasound Next Visit Focus/Plan Next Note Type Treatment Note Next Visit Plan Recheck response to ktaping and HEP review :mini squats, quad set into towel, sidesteps resisted; tandem/SLS, try balance board in clinic and hurdles, leg press, Manual: STM to HS, calf, quads , ITB, tibfem mobs and patellofemoral mobs taping for B knees
--- NOTE | 2024-07-09 17:20 | PT.OTN ---
Current Diagnoses Synovial cyst of popliteal space [Jones], left knee (07/09/24) Juvenile osteochondrosis of hip and pelvis, unspecified, unspecified leg (07/09/24) Difficulty in walking, not elsewhere classified (07/09/24) Weakness (07/09/24) Physical Therapy Treatment Note PT-OP-A Visit Information Start: 06/19/24 17:38 Freq: Status: Active Protocol: Document 07/09/24 10:03 [facility] (Rec: 07/09/24 10:38 [facility] [id number]) Out-Patient Physical Therapy Visit Information Visit Information Visit Type Treatment Note Visit Note 01/22 Visit Start Time 09:52 Visit Stop Time 10:30 Visit Number 01/27 Number of PHARMACEUTICAL LABORATORY TECHNICIAN Visits 0 PT-OP-B Current Condition Start: 06/19/24 17:38 Freq: Status: Active Protocol: Document 06/23/24 09:51 [facility] (Rec: 06/23/24 10:36 [facility] [id number]) Current Condition History of Current Condition Onset Date since 25 years old Current Complaints B knee pain History of Current Condition Pt reports progressive inc kne epain. Reports her entire family has knee problems and reprots she is really prone to tendonitis. Had hydrolaunic shots B knees w/o any help 10 years ago. 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 She has bakers cysts B post knees. She likes to walk everyday and walks on dirt since it is [place] her body. She was on vacation for the past few weeks and didn't have steps and that helped. She did keep taking voltaren and CBD when on vacation. Both knees give her problems equally but different areas. Since 25 yo hasn't been able to do kneel. Doesn't do well on big steps. Pain has been escalating in past few years. She still walks 1-2 miles 4x/wk. Was doing 2.5 to 3 miles about 1 year ago. Sometimes that is okay and sometimes not. Reports some LBP sometimes and notes she has osteopenia and maybe osteoporosis. Quit doing chiro since december and had stopped after sx for melanoma in arm. DIdn't feel like seh needed it anymore. Feels not as sure of her balance in the garden. Treatment Goals Patient/Caregiver Goals improve knee strength; feel more confident in garden, inc walk distance again PT-OP-C Subjective Start: 06/19/24 17:38 Freq: Status: Active Protocol: Document 07/09/24 10:03 [facility] (Rec: 07/09/24 10:38 [facility] [id number]) OP-PT Subjective Patient Comments Patient Comments Pt reports feels like tape really helped PT-OP-D Balance Start: 06/19/24 17:38 Freq: Status: Active Protocol: Document 06/23/24 09:51 [facility] (Rec: 06/23/24 10:36 [facility] [id number]) Balance Tests Single Limb Standing Single Limb- Right 9 sec Single Limb- Left 11 sec PT-OP-G Mobility & Gait Start: 06/19/24 17:38 Freq: Status: Active Protocol: Document 06/23/24 09:51 [facility] (Rec: 06/23/24 10:36 [facility] [id number]) OP Gait Assessment Comments Gait Comments louder impact on RLE; dec push off B PT-OP-J Posture/Palpation/Skin Start: 06/19/24 17:38 Freq: Status: Active Protocol: Document 06/23/24 09:51 [facility] (Rec: 06/23/24 10:36 [facility] [id number]) Posture Evaluation Comments Posture Comments B minor valgus, L>R femoral IR ; L tibia ER; R>L toe out PT-OP-K Range of Motion Start: 06/19/24 17:38 Freq: Status: Active Protocol: Document 06/23/24 09:51 [facility] (Rec: 06/23/24 10:36 [facility] [id number]) Knee Goniometric Range of Motion Knee Right Flexion Active (degrees) 129 Extension Active (degrees) 9 Comments pain ant knee w/ext Left Flexion Active (degrees) 114 Extension Active (degrees) 15 Comments pain ant knee w/ext & post w/ flex PT-OP-L Special Tests Start: 06/19/24 17:38 Freq: Status: Active Protocol: Document 06/23/24 09:51 [facility] (Rec: 06/23/24 10:36 [facility] [id number]) Special Tests Knee Special Tests Belkis Test Test Results neg B SLR Comments mild tightness L but slightly more R liagmentous Test Results neg all 4 planes b PT-OP-M Strength Start: 06/19/24 17:38 Freq: Status: Active Protocol: Document 06/23/24 09:51 [facility] (Rec: 06/23/24 10:36 [facility] [id number]) Hip Strength Hip Manual Muscle Testing Right Flexion (L2) 4- Good- Extension (S1) 3 Fair Abduction 3+ Fair+ Adduction 5 Normal External Rotation 3+ Fair+ Internal Rotation 4- Good- Left Flexion (L2) 4- Good- Extension (S1) 3 Fair Abduction 4 Good Adduction 5 Normal External Rotation 3+ Fair+ Internal Rotation 4- Good- Comments pain L knee w/flex & IR; pain LB w/ext Knee Strength Knee Manual Muscle Testing Right Flexion (S2) 4 Good Extension (L3) 4 Good Left Flexion (S2) 4- Good- Extension (L3) 4- Good- Comments pain Ankle/Foot Strength Ankle and Foot Manual Muscle Testing Right Dorsiflexion (L4) 4 Good Plantarflexion (S1) 5 Normal Left Dorsiflexion (L4) 4 Good Plantarflexion (S1) 5 Normal Comments 20 heel raises B R>L knee pain PT-OP-Q Treatments Start: 06/19/24 17:38 Freq: Status: Active Protocol: Document 07/09/24 10:03 [facility] (Rec: 07/09/24 10:38 [facility] [id number]) Therapeutic Exercises Standing Exercises stretch Standing Exercise Name 1. calf gastroc 2. bottoms up Side bilateral Reps/Minutes 1.30 sec 2. 10sec x6 squats Standing Exercise Name partial/mini- HEP reviewed Side bilateral Resistance AROM- at rail then front mirror Equipment Used counter (chair behind for hip hinge feedback) Reps/Minutes 12 Comments cues buttocks back and squeeze back up; cues knee alignment with/behind toe sidesteps Standing Exercise Name HEP reviewed Side bilateral Equipment Used orange band at shins (comfort on legs vs ankles) Reps/Minutes 10ft ea x2 laps Comments cues to avoid leaning Manual Therapy Treatment Consent Patient gave verbal consent for manual Yes treatment Soft Tissue Mobilization post Body Location HS and calf L Mobilization Type Rolling Intensity/Depth Moderate Body Position Supine Joint Mobilizations tibfem Joint AP tib and AP femur w/c/r flex Body Position Supine tibfib Joint L Direction AP Grade II Body Position Supine patellofemoral Joint B Direction sup, inf, med Grade II Body Position Supine Taping ktaping Comments 1. L med jt line I strip 2. R under patella for support Neuro Re-Education Treatment Balance Activities foam Details head turns and EC trials Surface blue foam Comments WBOS, NBOS, staggered stance B hurdles Equipment 6 hurdles Comments 1. recip fwd x6 w/cues slow pace 2. sidestep x2 B PT-OP-T Assessment and Plan Start: 06/19/24 17:38 Freq: Status: Active Protocol: Document 07/09/24 10:03 [facility] (Rec: 07/09/24 10:38 [facility] [id number]) Physical Therapy Assessment Goals strength Short Term Goal (STG) Pt will be indep w/HEP STG Duration 07/19 Catalytic Case Operator Goal (LTG) Pt will score at least 4+/5 on all BLE MMT to show improved strength and stability of knees LTG Duration 09/01 balance Shelter Goal (LTG) Pt will be able to do SLS for 15 sec B w/o inc pain to improve steadiness in garden LTG Duration 09/01 activity Short Term Goal (STG) Pt will report being able to sleep through the night w/o inc pain STG Duration 08/01 Catalytic Case Operator Goal (LTG) Pt will be able to squat and garden as needed w/o pain greater than 3/10 LTG Duration 09/01 Assessment Summary Assessment Pt did well with exercises w/ min cues needed w/sidesteps but squat cues for equal WB and knee flex. TOlerated new stretches well w/o inc pain. Improved L knee ext w/manual Physical Therapy Plan Frequency and Duration Frequency of Treatment 1-2x/wk Duration of treatment (weeks) 10 Plan of Care Start Date 06/23/24 Plan of Care End Date 09/01/24 Next Visit Focus/Plan Next Note Type Treatment Note Next Visit Plan advance to balance board, progress LE strength; work on knee jt mobility and STM
--- NOTE | 2024-07-14 13:45 | PT.OTN ---
Current Diagnoses Synovial cyst of popliteal space [Jones], left knee (07/14/24) Juvenile osteochondrosis of hip and pelvis, unspecified, unspecified leg (07/14/24) Difficulty in walking, not elsewhere classified (07/14/24) Weakness (07/14/24) Physical Therapy Treatment Note PT-OP-A Visit Information Start: 06/19/24 17:38 Freq: Status: Active Protocol: Document 07/14/24 13:03 SP (Rec: 07/14/24 13:48 SP [id number]) Out-Patient Physical Therapy Visit Information Visit Information Visit Type Treatment Note Visit Note 02/21 Visit Start Time 13:03 Visit Stop Time 13:45 Visit Number 02/26 Number of [facility] Visits 1 PT-OP-B Current Condition Start: 06/19/24 17:38 Freq: Status: Active Protocol: Document 06/23/24 09:51 [facility] (Rec: 06/23/24 10:36 [facility] [id number]) Current Condition History of Current Condition Onset Date since 25 years old Current Complaints B knee pain History of Current Condition Pt reports progressive inc kne epain. Reports her entire family has knee problems and reprots she is really prone to tendonitis. Had hydrolaunic shots B knees w/o any help 10 years ago. 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 She has bakers cysts B post knees. She likes to walk everyday and walks on dirt since it is [place] her body. She was on vacation for the past few weeks and didn't have steps and that helped. She did keep taking voltaren and CBD when on vacation. Both knees give her problems equally but different areas. Since 25 yo hasn't been able to do kneel. Doesn't do well on big steps. Pain has been escalating in past few years. She still walks 1-2 miles 4x/wk. Was doing 2.5 to 3 miles about 1 year ago. Sometimes that is okay and sometimes not. Reports some LBP sometimes and notes she has osteopenia and maybe osteoporosis. Quit doing chiro since december and had stopped after sx for melanoma in arm. DIdn't feel like seh needed it anymore. Feels not as sure of her balance in the garden. Treatment Goals Patient/Caregiver Goals improve knee strength; feel more confident in garden, inc walk distance again PT-OP-C Subjective Start: 06/19/24 17:38 Freq: Status: Active Protocol: Document 07/14/24 13:03 SP (Rec: 07/14/24 13:48 SP [id number]) OP-PT Subjective Patient Comments Patient Comments Pt reports stil having pain lateral R knee, not sure if Ktaping helped. Noticies her balance isnt' good today on her R leg. PT-OP-D Balance Start: 06/19/24 17:38 Freq: Status: Active Protocol: Document 06/23/24 09:51 [facility] (Rec: 06/23/24 10:36 [facility] [id number]) Balance Tests Single Limb Standing Single Limb- Right 9 sec Single Limb- Left 11 sec PT-OP-G Mobility & Gait Start: 06/19/24 17:38 Freq: Status: Active Protocol: Document 06/23/24 09:51 [facility] (Rec: 06/23/24 10:36 [facility] [id number]) OP Gait Assessment Comments Gait Comments louder impact on RLE; dec push off B PT-OP-J Posture/Palpation/Skin Start: 06/19/24 17:38 Freq: Status: Active Protocol: Document 06/23/24 09:51 [facility] (Rec: 06/23/24 10:36 [facility] [id number]) Posture Evaluation Comments Posture Comments B minor valgus, L>R femoral IR ; L tibia ER; R>L toe out PT-OP-K Range of Motion Start: 06/19/24 17:38 Freq: Status: Active Protocol: Document 06/23/24 09:51 [facility] (Rec: 06/23/24 10:36 [facility] [id number]) Knee Goniometric Range of Motion Knee Right Flexion Active (degrees) 129 Extension Active (degrees) 9 Comments pain ant knee w/ext Left Flexion Active (degrees) 114 Extension Active (degrees) 15 Comments pain ant knee w/ext & post w/ flex PT-OP-L Special Tests Start: 06/19/24 17:38 Freq: Status: Active Protocol: Document 06/23/24 09:51 [facility] (Rec: 06/23/24 10:36 [facility] [id number]) Special Tests Knee Special Tests Belkis Test Test Results neg B SLR Comments mild tightness L but slightly more R liagmentous Test Results neg all 4 planes b PT-OP-M Strength Start: 06/19/24 17:38 Freq: Status: Active Protocol: Document 06/23/24 09:51 [facility] (Rec: 06/23/24 10:36 [facility] [id number]) Hip Strength Hip Manual Muscle Testing Right Flexion (L2) 4- Good- Extension (S1) 3 Fair Abduction 3+ Fair+ Adduction 5 Normal External Rotation 3+ Fair+ Internal Rotation 4- Good- Left Flexion (L2) 4- Good- Extension (S1) 3 Fair Abduction 4 Good Adduction 5 Normal External Rotation 3+ Fair+ Internal Rotation 4- Good- Comments pain L knee w/flex & IR; pain LB w/ext Knee Strength Knee Manual Muscle Testing Right Flexion (S2) 4 Good Extension (L3) 4 Good Left Flexion (S2) 4- Good- Extension (L3) 4- Good- Comments pain Ankle/Foot Strength Ankle and Foot Manual Muscle Testing Right Dorsiflexion (L4) 4 Good Plantarflexion (S1) 5 Normal Left Dorsiflexion (L4) 4 Good Plantarflexion (S1) 5 Normal Comments 20 heel raises B R>L knee pain PT-OP-Q Treatments Start: 06/19/24 17:38 Freq: Status: Active Protocol: Document 07/14/24 13:03 SP (Rec: 07/14/24 13:48 SP [id number]) Gym Equipment Shuttle Balance Red Details wt shift stride stance 4s Reps/Duration 2 min Comments lessening touch Therapeutic Exercises Standing Exercises sidesteps Standing Exercise Name HEP reviewed: lateral, fwd, bwd Side bilateral Equipment Used orange band at shins (comfort on legs vs ankles) Reps/Minutes 15ft ea x2 laps Comments cues to avoid leaning, DF foot clearance fwd Manual Therapy Treatment Soft Tissue Mobilization post Body Location HS and calf L Mobilization Type Rolling Intensity/Depth Moderate Body Position Supine ITB Body Location b Mobilization Type Rolling Intensity/Depth Moderate Body Position Supine Comments pillow under knees Joint Mobilizations tibfem Joint AP tib and AP femur w/c/r flex Body Position Supine tibfib Joint L Direction AP Grade II Body Position Supine patellofemoral Joint B Direction sup, inf, med Grade II Body Position Supine Taping ktaping Comments 1. L medial jt line I strip tib plat> mid VM 2. R sub patella> med&Lat to lower quad for stability support Neuro Re-Education Treatment Balance Activities hurdles Equipment 6 hurdles, foam stones, 3 pods Comments 1. recip fwd x6 w/cues slow pace 2. sidestep x2 B (not 07/14) SLS Details B Equipment front mirror Comments LLE 27 sec, 9, 15 sec RLE 18 sec, 15 sec *cued elongated posture over stance LE PT-OP-T Assessment and Plan Start: 06/19/24 17:38 Freq: Status: Active Protocol: Document 07/14/24 13:03 SP (Rec: 07/14/24 13:48 SP [id number]) Physical Therapy Assessment Goals strength Short Term Goal (STG) Pt will be indep w/HEP STG Duration 07/19 Director Corporate Goal (LTG) Pt will score at least 4+/5 on all BLE MMT to show improved strength and stability of knees LTG Duration 09/01 balance Halfway Goal (LTG) Pt will be able to do SLS for 15 sec B w/o inc pain to improve steadiness in garden LTG Duration 09/01 activity Short Term Goal (STG) Pt will report being able to sleep through the night w/o inc pain STG Duration 08/01 Director Corporate Goal (LTG) Pt will be able to squat and garden as needed w/o pain greater than 3/10 LTG Duration 09/01 Assessment Summary Assessment Pt responded well to manual and rektaping for medial L knee and inferior patella suport. Pt improved SLS with cues for elongated posture over stance LE and improved SLS time with ability to progress uneven hurdles with less UE support. Physical Therapy Plan Frequency and Duration Frequency of Treatment 1-2x/wk Duration of treatment (weeks) 10 Plan of Care Start Date 06/23/24 Plan of Care End Date 09/01/24 Therapeutic Interventions Therapeutic Interventions Balance Training,Gait Training ,Home Exercise Program,Joint Mobilizations,Manual Therapy, Neuromuscular Re-education, Patient/Caregiver Education, Self-Care/Home Management,Soft Tissue Mobilization,Taping, Therapeutic Activities, Therapeutic Exercises Modalities Cold Pack/Ice Massage,Electric Stimulation,Hot Packs, Infrared Therapy,Ultrasound Next Visit Focus/Plan Next Note Type Treatment Note Next Visit Plan Check response to uneven hurdles. POC: advance to balance board, progress LE strength; work on knee jt mobility and STM
--- NOTE | 2024-07-22 11:25 | PT.OTN ---
Current Diagnoses Synovial cyst of popliteal space [Jones], left knee (07/22/24) Juvenile osteochondrosis of hip and pelvis, unspecified, unspecified leg (07/22/24) Difficulty in walking, not elsewhere classified (07/22/24) Weakness (07/22/24) Physical Therapy Treatment Note PT-OP-A Visit Information Start: 06/19/24 17:38 Freq: Status: Active Protocol: Document 07/22/24 10:45 SP (Rec: 07/22/24 11:39 SP [id number]) Out-Patient Physical Therapy Visit Information Visit Information Visit Type Treatment Note Visit Note 03/24 Visit Start Time 10:45 Visit Stop Time 11:25 Visit Number 03/29 Number of [facility] Visits 2 PT-OP-B Current Condition Start: 06/19/24 17:38 Freq: Status: Active Protocol: Document 06/23/24 09:51 [facility] (Rec: 06/23/24 10:36 [facility] [id number]) Current Condition History of Current Condition Onset Date since 25 years old Current Complaints B knee pain History of Current Condition Pt reports progressive inc kne epain. Reports her entire family has knee problems and reprots she is really prone to tendonitis. Had hydrolaunic shots B knees w/o any help 10 years ago. 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 She has bakers cysts B post knees. She likes to walk everyday and walks on dirt since it is [place] her body. She was on vacation for the past few weeks and didn't have steps and that helped. She did keep taking voltaren and CBD when on vacation. Both knees give her problems equally but different areas. Since 25 yo hasn't been able to do kneel. Doesn't do well on big steps. Pain has been escalating in past few years. She still walks 1-2 miles 4x/wk. Was doing 2.5 to 3 miles about 1 year ago. Sometimes that is okay and sometimes not. Reports some LBP sometimes and notes she has osteopenia and maybe osteoporosis. Quit doing chiro since december and had stopped after sx for melanoma in arm. DIdn't feel like seh needed it anymore. Feels not as sure of her balance in the garden. Treatment Goals Patient/Caregiver Goals improve knee strength; feel more confident in garden, inc walk distance again PT-OP-C Subjective Start: 06/19/24 17:38 Freq: Status: Active Protocol: Document 07/22/24 10:45 SP (Rec: 07/22/24 11:39 SP [id number]) OP-PT Subjective Patient Comments Patient Comments Pt reports had to take off Ktaping was antaginizing her knee. She has tried walking on trails and anterior R knee still hurts. PT-OP-D Balance Start: 06/19/24 17:38 Freq: Status: Active Protocol: Document 06/23/24 09:51 [facility] (Rec: 06/23/24 10:36 [facility] [id number]) Balance Tests Single Limb Standing Single Limb- Right 9 sec Single Limb- Left 11 sec PT-OP-G Mobility & Gait Start: 06/19/24 17:38 Freq: Status: Active Protocol: Document 06/23/24 09:51 [facility] (Rec: 06/23/24 10:36 [facility] [id number]) OP Gait Assessment Comments Gait Comments louder impact on RLE; dec push off B PT-OP-J Posture/Palpation/Skin Start: 06/19/24 17:38 Freq: Status: Active Protocol: Document 06/23/24 09:51 [facility] (Rec: 06/23/24 10:36 [facility] [id number]) Posture Evaluation Comments Posture Comments B minor valgus, L>R femoral IR ; L tibia ER; R>L toe out PT-OP-K Range of Motion Start: 06/19/24 17:38 Freq: Status: Active Protocol: Document 06/23/24 09:51 [facility] (Rec: 06/23/24 10:36 [facility] [id number]) Knee Goniometric Range of Motion Knee Right Flexion Active (degrees) 129 Extension Active (degrees) 9 Comments pain ant knee w/ext Left Flexion Active (degrees) 114 Extension Active (degrees) 15 Comments pain ant knee w/ext & post w/ flex PT-OP-L Special Tests Start: 06/19/24 17:38 Freq: Status: Active Protocol: Document 06/23/24 09:51 [facility] (Rec: 06/23/24 10:36 [facility] [id number]) Special Tests Knee Special Tests Belkis Test Test Results neg B SLR Comments mild tightness L but slightly more R liagmentous Test Results neg all 4 planes b PT-OP-M Strength Start: 06/19/24 17:38 Freq: Status: Active Protocol: Document 06/23/24 09:51 [facility] (Rec: 06/23/24 10:36 [facility] [id number]) Hip Strength Hip Manual Muscle Testing Right Flexion (L2) 4- Good- Extension (S1) 3 Fair Abduction 3+ Fair+ Adduction 5 Normal External Rotation 3+ Fair+ Internal Rotation 4- Good- Left Flexion (L2) 4- Good- Extension (S1) 3 Fair Abduction 4 Good Adduction 5 Normal External Rotation 3+ Fair+ Internal Rotation 4- Good- Comments pain L knee w/flex & IR; pain LB w/ext Knee Strength Knee Manual Muscle Testing Right Flexion (S2) 4 Good Extension (L3) 4 Good Left Flexion (S2) 4- Good- Extension (L3) 4- Good- Comments pain Ankle/Foot Strength Ankle and Foot Manual Muscle Testing Right Dorsiflexion (L4) 4 Good Plantarflexion (S1) 5 Normal Left Dorsiflexion (L4) 4 Good Plantarflexion (S1) 5 Normal Comments 20 heel raises B R>L knee pain PT-OP-Q Treatments Start: 06/19/24 17:38 Freq: Status: Active Protocol: Document 07/22/24 10:45 SP (Rec: 07/22/24 11:39 SP [id number]) Therapeutic Exercises Supine Exercises hamstring stretch Supine Exercise Name trialed in Pt and added to HEP /c HO Side bilateral Equipment Used grasp behind thigh, lift lower leg Reps/Minutes 30SH x2 Comments good response Prone Exercises quad stretch Prone Exercise Name initiated in PT, added to HEP /c HO Side bilateral Equipment Used use strap Reps/Minutes 30x2 Comments good quad stretch, pnfree Standing Exercises Bottoms up Standing Exercise Name reviewed an HEP- causes back pain Equipment Used floor>chair> bench- either to low/high Comments DC stretch Standing Exercise Name 1. calf gastroc Side bilateral Reps/Minutes 30 sec Comments good stretch Other Exercises self STMs Other Exercise Name rolling pin: quad, ITB, HS, calf, peroneals Comments good feedback response massage - povided HO Manual Therapy Treatment Soft Tissue Mobilization post Body Location HS and calf L>R Mobilization Type Rolling Intensity/Depth Moderate Body Position prone over pillow ITB Body Location B Mobilization Type Rolling Intensity/Depth Moderate Body Position prone over pillow Comments pillow under knees PT-OP-T Assessment and Plan Start: 06/19/24 17:38 Freq: Status: Active Protocol: Document 07/22/24 10:45 SP (Rec: 07/22/24 11:39 SP [id number]) Physical Therapy Assessment Goals strength Short Term Goal (STG) Pt will be indep w/HEP STG Duration 07/19 Speeder Hand Goal (LTG) Pt will score at least 4+/5 on all BLE MMT to show improved strength and stability of knees LTG Duration 09/01 balance Speeder Hand Goal (LTG) Pt will be able to do SLS for 15 sec B w/o inc pain to improve steadiness in garden LTG Duration 09/01 activity Short Term Goal (STG) Pt will report being able to sleep through the night w/o inc pain STG Duration 08/01 Senior Living Goal (LTG) Pt will be able to squat and garden as needed w/o pain greater than 3/10 LTG Duration 09/01 Assessment Summary Assessment Pt good response to manual, initiated stretching use strap quad, supine grasp thigh and lift lower leg and self rolling pin worked well no knee pain end tx. DC bottom up - to challenging finding appropriate height surface and hurt back so DC> Physical Therapy Plan Frequency and Duration Frequency of Treatment 1-2x/wk Duration of treatment (weeks) 10 Plan of Care Start Date 06/23/24 Plan of Care End Date 09/01/24 Therapeutic Interventions Therapeutic Interventions Balance Training,Gait Training ,Home Exercise Program,Joint Mobilizations,Manual Therapy, Neuromuscular Re-education, Patient/Caregiver Education, Self-Care/Home Management,Soft Tissue Mobilization,Taping, Therapeutic Activities, Therapeutic Exercises Modalities Cold Pack/Ice Massage,Electric Stimulation,Hot Packs, Infrared Therapy,Ultrasound Next Visit Focus/Plan Next Note Type Treatment Note Next Visit Plan Check response to uneven hurdles. POC: advance to balance board, progress LE strength; work on knee jt mobility and STM
--- NOTE | 2024-07-28 12:06 | PT.OTN ---
Current Diagnoses Synovial cyst of popliteal space [Jones], left knee (07/28/24) Juvenile osteochondrosis of hip and pelvis, unspecified, unspecified leg (07/28/24) Difficulty in walking, not elsewhere classified (07/28/24) Weakness (07/28/24) Physical Therapy Treatment Note PT-OP-A Visit Information Start: 06/19/24 17:38 Freq: Status: Active Protocol: Document 07/28/24 09:51 [facility] (Rec: 07/28/24 12:06 [facility] [id number]) Out-Patient Physical Therapy Visit Information Visit Information Visit Type Discharge Summary Visit Start Time 09:51 Visit Stop Time 10:32 Visit Number 7 Number of [employer] [facility] Visits 0 PT-OP-B Current Condition Start: 06/19/24 17:38 Freq: Status: Active Protocol: Document 06/23/24 09:51 [facility] (Rec: 06/23/24 10:36 [facility] [id number]) Current Condition History of Current Condition Onset Date since 25 years old Current Complaints B knee pain History of Current Condition Pt reports progressive inc kne epain. Reports her entire family has knee problems and reprots she is really prone to tendonitis. Had hydrolaunic shots B knees w/o any help 10 years ago. 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 She has bakers cysts B post knees. She likes to walk everyday and walks on dirt since it is [place] her body. She was on vacation for the past few weeks and didn't have steps and that helped. She did keep taking voltaren and CBD when on vacation. Both knees give her problems equally but different areas. Since 25 yo hasn't been able to do kneel. Doesn't do well on big steps. Pain has been escalating in past few years. She still walks 1-2 miles 4x/wk. Was doing 2.5 to 3 miles about 1 year ago. Sometimes that is okay and sometimes not. Reports some LBP sometimes and notes she has osteopenia and maybe osteoporosis. Quit doing chiro since december and had stopped after sx for melanoma in arm. DIdn't feel like seh needed it anymore. Feels not as sure of her balance in the garden. Treatment Goals Patient/Caregiver Goals improve knee strength; feel more confident in garden, inc walk distance again PT-OP-C Subjective Start: 06/19/24 17:38 Freq: Status: Active Protocol: Document 07/28/24 09:51 [facility] (Rec: 07/28/24 12:06 [facility] [id number]) OP-PT Subjective Patient Comments Patient Comments Pt reprots feels like progress is starting to plateau. Knees are muchb bakari than they were but still uncomfortable. PT-OP-D Balance Start: 06/19/24 17:38 Freq: Status: Active Protocol: Document 07/28/24 09:51 [facility] (Rec: 07/28/24 12:06 [facility] [id number]) Balance Tests Single Limb Standing Single Limb- Right 28 sec lat shear of hip Single Limb- Left 15 sec PT-OP-G Mobility & Gait Start: 06/19/24 17:38 Freq: Status: Active Protocol: Document 06/23/24 09:51 [facility] (Rec: 06/23/24 10:36 [facility] [id number]) OP Gait Assessment Comments Gait Comments louder impact on RLE; dec push off B PT-OP-J Posture/Palpation/Skin Start: 06/19/24 17:38 Freq: Status: Active Protocol: Document 06/23/24 09:51 [facility] (Rec: 06/23/24 10:36 [facility] [id number]) Posture Evaluation Comments Posture Comments B minor valgus, L>R femoral IR ; L tibia ER; R>L toe out PT-OP-K Range of Motion Start: 06/19/24 17:38 Freq: Status: Active Protocol: Document 06/23/24 09:51 [facility] (Rec: 06/23/24 10:36 [facility] [id number]) Knee Goniometric Range of Motion Knee Right Flexion Active (degrees) 129 Extension Active (degrees) 9 Comments pain ant knee w/ext Left Flexion Active (degrees) 114 Extension Active (degrees) 15 Comments pain ant knee w/ext & post w/ flex PT-OP-L Special Tests Start: 06/19/24 17:38 Freq: Status: Active Protocol: Document 06/23/24 09:51 [facility] (Rec: 06/23/24 10:36 [facility] [id number]) Special Tests Knee Special Tests Belkis Test Test Results neg B SLR Comments mild tightness L but slightly more R liagmentous Test Results neg all 4 planes b PT-OP-M Strength Start: 06/19/24 17:38 Freq: Status: Active Protocol: Document 07/28/24 09:51 [facility] (Rec: 07/28/24 12:06 [facility] [id number]) Hip Strength Hip Manual Muscle Testing Right Flexion (L2) 4- Good- Extension (S1) 3 Fair Abduction 4+ Good+ Adduction 5 Normal External Rotation 4+ Good+ Internal Rotation 4 Good Comments pain R hip w/IR Left Flexion (L2) 4- Good- Extension (S1) 4- Good- Abduction 5 Normal Adduction 5 Normal External Rotation 4+ Good+ Internal Rotation 5 Normal Knee Strength Knee Manual Muscle Testing Right Flexion (S2) 4 Good Extension (L3) 4 Good Left Flexion (S2) 4 Good Extension (L3) 4 Good Comments pain Ankle/Foot Strength Ankle and Foot Manual Muscle Testing Right Dorsiflexion (L4) 5 Normal Plantarflexion (S1) 5 Normal Left Dorsiflexion (L4) 5 Normal Plantarflexion (S1) 5 Normal Comments 20 heel raises B R>L knee pain PT-OP-Q Treatments Start: 06/19/24 17:38 Freq: Status: Active Protocol: Document 07/28/24 09:51 [facility] (Rec: 07/28/24 12:06 [facility] [id number]) Therapeutic Exercises Supine Exercises Bridge Side bilateral Reps/Minutes 10 sec x5 quad set Supine Exercise Name into rolled towel folded then SLR Side bilateral Reps/Minutes 5 Sidelying Exercises hip abd Side bilateral Reps/Minutes 15 Standing Exercises stretch Standing Exercise Name quad on chair Side bilateral Equipment Used counter Reps/Minutes 30 sec Manual Therapy Treatment Consent Patient gave verbal consent for manual Yes treatment Joint Mobilizations tibfem Joint PA w/APs L Body Position Supine tibfib Joint L PA Taping ktaping Body Location aide took video for pt while PT performs Comments 1. L med jt line I strip 2. R under patella for support PT-OP-T Assessment and Plan Start: 06/19/24 17:38 Freq: Status: Active Protocol: Document 07/28/24 09:51 [facility] (Rec: 07/28/24 12:06 [facility] [id number]) Physical Therapy Assessment Goals strength Short Term Goal (STG) Pt will be indep w/HEP STG Duration achieved Residential Goal (LTG) Pt will score at least 4+/5 on all BLE MMT to show improved strength and stability of knees 07/28-improved LTG Duration 09/01 balance Residential Goal (LTG) Pt will be able to do SLS for 15 sec B w/o inc pain to improve steadiness in garden LTG Duration achieved 07/28 activity Short Term Goal (STG) Pt will report being able to sleep through the night w/o inc pain 07/28-doesn't wake her, but is sore when getting comfortable STG Duration 08/01 Kiss Setter Hand Goal (LTG) Pt will be able to squat and garden as needed w/o pain greater than 3/10 07/28-has not gardened; can do partial squat-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 LTG Duration 09/01 Assessment Summary Assessment Pt has made good progress w/PT w/overall dec pain and improved funtional ability but still B knee pain present in the day. Pt feels indep w/HEP and is ready for DC. Pt DC to HEP today and pt to follow up w/orthopedics at this time. Physical Therapy Plan Discharge Physical Therapy Discharge Reasons Patient Request
== END 2024-07-30 10:09 | disposition home or self-care (01) ==
LOC: PHYS 09:45
PROVIDERS: Family Provider Family Medicine; PCP Family Medicine; Referring Provider Family Medicine; Visit Provider Family Medicine
DX: M71.22 Synovial cyst of popliteal space [Baker], left knee (principal); M91.90 Juvenile osteochondrosis of hip and pelvis, unspecified, unspecified leg; R26.2 Difficulty in walking, not elsewhere classified; R53.1 Weakness
CPT/HCPCS: 97110; 97112; 97140; 97162; 97535

== ENCOUNTER 2024-08-04 09:37 | Emergency (ER) | payer OTHER, SELFPAY ==
--- NOTE | 2024-08-04 09:39 | ED.GENADULT ---
HPI - General Adult General Chief complaint: Extremity Injury, Lower Stated complaint: Sent from [facility] blood clot in right leg Time Seen by Provider: 08/04/24 09:38 Source: patient, RN notes reviewed and old records reviewed Limitations: no limitations History of Present Illness HPI narrative: 79-year-old history of hypertension who presents with of her right lower extremity. Patient states 4 days ago she was clipping her toenails was not sort of an awkward position shortly thereafter started to have discomfort radiating from the right ankle up the calf and towards the knee. She states worse with weight-bearing initially but then improves as she walks more. She has not noticed any redness, warmth or swelling. There has not been any ecchymosis. She denies any other trauma or injuries. She states when she ambulates it hurts a little bit more up in the fibular region than in the ankle but pain starts in the ankle. No fevers or chills. No chest pain or shortness of breath, no nausea or vomiting. Denies any new GI or urinary symptoms. No history of blood clots, uses estradiol intravaginally but no other oral estrogen or progesterone. Patient has not had any prior blood clots in the past. No prolonged sitting or travel. Patient states home medication includes metoprolol and oxybutynin. States she has had prior orthopedic surgery on her arm but denies any other surgeries. Former smoker, occasional alcohol, no recreational drugs. Dr. Fall is her primary care physician. Patient was sent at walk-in clinic and sent for evaluation to rule out DVT. Related Data Home Medications Medication Instructions Recorded Confirmed cholecalciferol (vitamin D3) 125 5,000 unit PO WEEKLY ##0 09/13/17 08/04/24 mcg (5,000 unit) capsule omega 6-xyd-slj-fish oil 1,000 mg 1 cap PO QDAY ##0 02/05/18 08/04/24 (120 mg-180 mg) capsule (Fish Oil) multivitamin (Multiple Vitamins 1 tab PO DAILY 04/10/18 08/04/24 tablet) oxybutynin chloride 5 mg tablet 2.5 mg PO DAILY 02/25/24 08/04/24 Previous Rx's Medication Instructions Recorded oxyquinoline 0.025 %-sodium lauryl 0.5 ea vaginal .weekly #113.4 grams 12/11/23 sulfate 0.01 % vaginal gel estradiol 0.01% (0.1 mg/gram) 0.5 g vaginal 3XW #42.5 grams 01/29/24 vaginal cream metoprolol succinate 25 mg 12.5 mg (1/2 x 25 mg) PO DAILY #15 05/19/24 tablet,extended release 24 hr tabs Allergies Allergy/AdvReac Type Severity Reaction Status Date / Time latex Allergy Mild Rash Verified 05/07/24 09:30 NSAIDS (Non-Steroidal Allergy Unknown gi upset Verified 05/07/24 09:30 Anti-Inflamma [NSAIDS (NON-STEROIDAL ANTI-INFLAMMA] Review of Systems Review of Systems ROS Unobtainable: All systems reviewed & are unremarkable except as noted in HPI and below Patient History Medical History Fecal incontinence Hayfever Chicken pox Hemorrhoids (1974) Vertigo Measles Mumps Rubella Eczema Rosacea Osteoarthritis (~1999) Retinal detachment Hearing loss (1989) BCC (basal cell carcinoma), face (1996) Shoulder pain (2013) Foot pain (2001) Surgical History History of biopsy (01/14/24) Anesthesia History of nasal surgery (1961) Status post tubal ligation (1979) History of third molar tooth extraction (1965) History of tonsillectomy (1947) Family History Brother Age: 76 CLL (chronic lymphocytic leukemia) C. difficile enteritis Father Hypertension Parkinsons High cholesterol Stroke Heart failure Mother Hypertension High cholesterol Chronic atrial fibrillation Stroke Sister Age: 83 Polymyalgia rheumatica High cholesterol Social History marital status: household members: spouse lives independently: Yes occupational status: previously employed Smoking Status: Former smoker alcohol intake: current substance use type: does not use Smoking Status: Former smoker alcohol intake frequency: a few times a week Substance Use Type: does not use Exam Narrative Exam Narrative: GENERAL: Alert and oriented x three, female in mild distress HEENT: Head normocephalic, atraumatic, EOMI, pupils reactive, face symmetric, moist mucous membranes NECK: Supple, full range of motion CARDIOVASCULAR: Regular rate and rhythm without murmurs, rubs or gallops. RESPIRATORY: Breath sounds equal bilaterally, no wheezes rales or rhonchi. ABDOMEN: Soft, nontender. Normoactive bowel sounds all 4 quadrants. No guarding or rebound, rigidity, no mass EXTREMITIES: Normal range of motion, no clubbing or edema. Neurovascularly intact. Patient nontender on examination. No edema, no ecchymosis, no erythema, no swelling bilateral lower extremities. Patient is able to stand and ambulate without issue. She was able to take off her pants without assistance. 2+ dorsalis pedis, sensation to light touch throughout the leg. Cap refill less than 2 seconds all 5 toes. NEUROLOGICAL: Cranial nerves II through XII grossly intact. Moving all extremities SKIN: Warm, dry, no petechiae, no rashes or lesions. Initial Vital Signs Initial Vital Signs: Vital Signs Temperature 98 F 08/04/24 09:45 Pulse Rate 89 08/04/24 09:45 Respiratory Rate 16 08/04/24 09:45 Blood Pressure 125/84 08/04/24 09:45 Pulse Oximetry 98 08/04/24 09:45 Oxygen Delivery Method Room Air 08/04/24 09:45 Course Orders Ordered: ED Orders 08/04/24 09:49 US periph venous low extrem rt Stat Vital Signs Vital signs: Vital Signs - 8 hr 08/04/24 09:45 Temperature 98 F Pulse Rate 89 Respiratory Rate 16 Blood Pressure 125/84 Pulse Oximetry 98 Oxygen Delivery Method Room Air Medical Decision Making Imaging Data US - DVT: Radiologist's Impression: [address] [address] Ultrasound Report Signed Patient: Payton Barrera MR#: [id number] : 1945 Acct:[id number] Age/Sex: 79 / F Date of Service: 08/04/24 Loc: ED Accession Number: [id number] Procedure: US periph venous low extrem rt Ordering Provider: Mikayla Del Cid D.O. PROCEDURE: US PERIPH VENOUS LOW EXTREM RT INDICATIONS: right LE pain x 4 days TECHNIQUE: Real-time imaging, as well as color and pulse Doppler interrogation, were performed of the lower extremity deep veins from the inguinal ligament to the popliteal fossa, with documentation of the visualized calf veins. COMPARISON: None. FINDINGS: The common femoral, femoral, popliteal, and the visualized calf veins are normally compressible, and free of intraluminal thrombus. Color and pulse Doppler demonstrate normal phasic intraluminal flow. There is normal augmentation response to distal compression maneuver. IMPRESSION: Negative right lower extremity duplex venous ultrasound for DVT. Dictated by: Jefe Rushing M.D. on 08/04/2024 at 11:00 Approved by: Jefe Rushing M.D. on 08/04/2024 at 11:01 [facility] Narrative Medical decision making narrative: 79-year-old female with 4 days of right lower extremity pain worsened with ambulation. No specific trauma patient does note it started after she has been clipping her toenails and bit an awkward position but did not have pain while she was doing that. No swelling, erythema or warmth to the area. Patient notes that pain is worse with weight-bearing but does not improve over time when she was ambulating has moved from the ankle region up towards the blood/posterior knee over the last several days. DVT ultrasound is negative. Patient likely has musculoskeletal denies having her leg and sort of an awkward position she has been able to ambulate states she does not think she was anything broken x-ray was deferred as patient gets better with more ambulation. Discharge Plan Departure Patient Disposition: Home Clinical Impression: Leg pain, right Instructions: DI for Leg Pain Activity Restrictions/Additional Instructions: Follow up with your physician for recheck if your symptoms are not resolving over the next week. Your ultrasound today does not show any signs of DVT or blood clot. You can take medications such as Tylenol up to a 1000 mg every 6 hours as needed for pain. Please return if new or worsening symptoms, new redness, swelling, numbness or weakness, sudden skin color changes, or other new or concerning changes. Prescriptions: No Action cholecalciferol (vitamin D3) 5,000 UNIT capsule 5,000 unit PO WEEKLY Qty: 0 omega 5-zso-rea-fish oil [Fish Oil] 1,000 mg (120 mg-180 mg) Capsule 1 cap PO QDAY Qty: 0 estradiol 0.01 % (0.1 mg/gram) cream 0.5 g vaginal 3XW Qty: 42.5 1RF metoprolol succinate 25 mg tablet extended release 24 hr 12.5 mg PO DAILY MDD 1/2 tablet daily Qty: 15 4RF multivitamin [Multiple Vitamins] tablet 1 tab PO DAILY oxyquinoline-sod.lauryl sulfat 0.025-0.01 % gel 0.5 ea vaginal .weekly Qty: 113.4 3RF Rx Instructions: 0.5 applicator once a week oxybutynin chloride 5 mg tablet 2.5 mg PO DAILY Referrals: Emily Fall DO [Primary Care Provider] - Stand Alone Forms: Patient Portal/API
[2024-08-04 09:45] VITALS: BP 125/84; PULSE 89; RESP 16; TEMP 36.6; O2SAT 98; BMI 25.4
--- NOTE | 2024-08-04 09:49 | DI.US.S_ITS ---
PROCEDURE: US PERIPH VENOUS LOW EXTREM RT INDICATIONS: right LE pain x 4 days TECHNIQUE: Real-time imaging, as well as color and pulse Doppler interrogation, were performed of the lower extremity deep veins from the inguinal ligament to the popliteal fossa, with documentation of the visualized calf veins. COMPARISON: None. FINDINGS: The common femoral, femoral, popliteal, and the visualized calf veins are normally compressible, and free of intraluminal thrombus. Color and pulse Doppler demonstrate normal phasic intraluminal flow. There is normal augmentation response to distal compression maneuver. IMPRESSION: Negative right lower extremity duplex venous ultrasound for DVT. Dictated by: Jefe Rushing M.D. on 08/04/2024 at 11:00 Approved by: Jefe Rushing M.D. on 08/04/2024 at 11:01
== END 2024-08-04 11:25 | disposition home or self-care (01) ==
PROVIDERS: Emergency Provider Emergency Medicine; Family Provider Family Medicine; PCP Family Medicine
DX: M79.604 Pain in right leg (principal); X58.XXXA Exposure to other specified factors, initial encounter
CPT/HCPCS: 93971; 99281; 99283

== ENCOUNTER → 2024-08-13 11:45 | Outpatient (CLI) | payer OTHER, SELFPAY ==
--- NOTE | 2024-08-13 11:48 | EKG_ITS ---
[address] [address] [address] [place] [address] Test Date: 2024-08-13 Pat Name: Payton Barrera Department: Room: Gender: Female Adult Educator: : 1945 Requested By: Order Number: [id number] Reading MD: Sinan Murphy Measurements Intervals [place] Rate: 76 P: 47 DE: 146 QRS: -17 QRSD: 84 T: 29 QT: 366 QTc: 411 Interpretive Statements Normal sinus rhythm Electronically Signed On 08-14-2024 8:31:49 PDT by Sinan Murphy
[2024-08-13 12:57] LABS: Add Manual Diff / Slide Review NO; Basophils Absolute Auto 0 /uL (0-100); Basophils Percent Auto 0.2 % (0-2); Eosinophils Absolute Auto 0 /uL (0-450); Eosinophils Percent Auto 0.7 % (2-4); Hematocrit 39.2 % (36-46); Hemoglobin 13.5 g/dL (12.0-16.0); Lymphocytes Absolute Auto 2200 /uL (1100-4500); Lymphocytes Percent Auto 37.3 % (25-40); Mean Corpuscular HGB Conc 34.5 % (30-36); Mean Corpuscular Hemoglobin 31.4 PG (26-34); Mean Corpuscular Volume 90.9 fL (80-100); Monocytes Absolute Auto 400 /uL (0-900); Monocytes Percent Auto 7.2 % (3-14); Neutrophils Absolute Auto 3200 /uL (1500-7000); Neutrophils Percent Auto 54.6 % (50-75); Platelet Count 234 X10^3/uL (150-400); Red Blood Cell Count 4.31 X10^6/uL (4.0-5.2); Red Cell Distribution Width 12.4 % (11.6-14.8); White Blood Cell Count 5.8 X10^3/uL (4.5-11.0)
[2024-08-13 13:03] LABS: Appearance Urine UA CLEAR; Bilirubin Urine UA NEGATIVE (NEGATIVE); Color Urine UA YELLOW; Glucose Urine UA NEGATIVE (Negative); Ketones Urine UA NEGATIVE (NEGATIVE); Leukocyte Esterase Urine UA 1+ (NEGATIVE); Nitrite Urine UA NEGATIVE (Negative); Occult Blood Urine UA NEGATIVE (Negative); Protein Urine UA NEGATIVE (Negative); Urobilinogen Urine UA 0.2 E.U./dL (0.2)
[2024-08-13 13:06] LABS: Hemoglobin A1C% w Est Avg Glu 5.2 % (4.0-6.0)
[2024-08-13 13:11] LABS: BUN Creatinine Ratio 26.8 (6-22); Blood Urea Nitrogen 15 mg/dL (7-17); Calcium 10.6 mg/dL (8.4-10.2); Carbon Dioxide 26 mmol/L (22-32); Chloride 100 mmol/L (98-107); Estimated Glomerular Filt Rate > 60 mL/min (>60); Glucose 95 mg/dL (80-110); HEMOLYSIS < 15 (0-50); Potassium 4.6 mmol/L (3.4-5.1); Sodium 132 mmol/L (137-145)
[2024-08-13 13:14] LABS: Bacteria Urine Moderate (10-30); Culture Indicated Urine Specimen Cultured; RBC Urine None Seen (0-5/HPF); Squamous Epithelial Cell Urine 1-5 /HPF (0-5/HPF); Urine Volume 10mL (spun); WBC Urine 1-5/HPF (0-5/HPF)
== END ==
PROVIDERS: Family Provider Family Medicine; PCP Family Medicine; Referring Provider Orthopaedic Surgery; Visit Provider Orthopaedic Surgery
DX: Z01.818 Encounter for other preprocedural examination (principal); R73.9 Hyperglycemia, unspecified; Z01.812 Encounter for preprocedural laboratory examination; N39.0 Urinary tract infection, site not specified
CPT/HCPCS: 36415; 80048; 81001; 83036; 85025; 87086; 93005

== ENCOUNTER → 2024-09-01 08:57 | Outpatient (CLI) | payer OTHER, SELFPAY ==
[2024-09-01 10:04] LABS: BUN Creatinine Ratio 24.6 (6-22); Blood Urea Nitrogen 16 mg/dL (7-17); Calcium 10.9 mg/dL (8.4-10.2); Carbon Dioxide 28 mmol/L (22-32); Chloride 103 mmol/L (98-107); Estimated Glomerular Filt Rate > 60 mL/min (>60); Glucose 83 mg/dL (80-110); HEMOLYSIS < 15 (0-50); Phosphorous 2.8 mg/dL (2.8-4.1); Potassium 4.3 mmol/L (3.4-5.1); Sodium 137 mmol/L (137-145)
[2024-09-01 10:18] LABS: Vitamin D 25 Hydroxy (D3) 64.9 ng/mL (30.0-100.0)
[2024-09-02 07:40] LABS: Parathyroid Hormone Int 74 pg/mL (15-65)
== END ==
PROVIDERS: Family Provider Family Medicine; PCP Family Medicine; Referring Provider Internal Medicine Endocrinology, Diabetes & Metabolism; Visit Provider Internal Medicine Endocrinology, Diabetes & Metabolism
DX: E21.0 Primary hyperparathyroidism (principal); M81.0 Age-related osteoporosis without current pathological fracture
CPT/HCPCS: 36415; 80048; 82306; 83970; 84100

== ENCOUNTER → 2024-12-09 15:29 | Outpatient (CLI) | payer OTHER, SELFPAY ==
--- NOTE | 2024-12-09 15:30 | DI.MG.S_ITS ---
BILATERAL DIGITAL SCREENING MAMMOGRAM 3D/2D WITH CAD: 12/09/2024 CLINICAL: Routine screening. Comparison is made to exams dated: 11/15/2023 mammogram, 10/27/2022 mammogram, and 10/22/2021 mammogram - [facility]. The breasts are heterogeneously dense, which may obscure small masses (category c / 51-75% glandular tissue). Current study was also evaluated with a Computer Aided Detection (CAD) system. There is a possible developing irregular asymmetry in the left breast middle depth lateral region seen on the craniocaudal view only. No other significant masses, calcifications, or other findings are seen in either breast. IMPRESSION: INCOMPLETE: NEED ADDITIONAL IMAGING EVALUATION The possible developing irregular asymmetry in the left breast is indeterminate. Additional views with possible ultrasound are recommended. Based on the Tyrer Cuzick model (a risk assessment model) the patient's lifetime risk is 3.9% and her 10 year risk is 0.0%. According to the ACR, ACS, and NCCN guidelines, an annual breast MRI exam along with mammogram is recommended if the patient's lifetime risk is 20% or greater. This exam was interpreted at Station ID: [id number]. NOTE: For mammograms, a report in lay terms will be sent to the patient. Approximately 15% of breast malignancies will not be visualized mammographically. In the management of a palpable breast mass, a negative mammogram must not discourage biopsy of a clinically suspicious lesion. Electronically Signed By: Joe Lau M.D. aty/:12/10/2024 06:42:13 letter sent: Additional Imaging Needed ACR BI-RADS Category 0: Incomplete: Need Additional Imaging Evaluation
== END ==
PROVIDERS: Family Provider Family Medicine; PCP Family Medicine; Referring Provider Family Medicine; Visit Provider Family Medicine
DX: Z12.31 Encounter for screening mammogram for malignant neoplasm of breast (principal); R92.333 Mammographic heterogeneous density, bilateral breasts
CPT/HCPCS: 77063; 77067

== ENCOUNTER 2025-01-06 13:45 | Outpatient (RCR) | payer OTHER, SELFPAY ==
--- NOTE | 2024-09-04 16:59 | PT.OIE ---
Current Diagnoses Unilateral primary osteoarthritis, right knee (09/04/24) Presence of right artificial knee joint (09/04/24) Past Medical History (Last Reviewed 08/04/24 @ 09:52 by Mikayla Del Cid DO) BCC (basal cell carcinoma), face (1996) Chicken pox Eczema Fecal incontinence Foot pain (2001) Hayfever Hearing loss (1989) Hemorrhoids (1974) Measles Mumps Osteoarthritis (~1999) Retinal detachment Rosacea Rubella Shoulder pain (2013) Vertigo Past Surgical History (Last Reviewed 08/04/24 @ 09:52 by Mikayla Del Cid DO) Anesthesia History of biopsy (01/14/24) History of nasal surgery (1961) History of third molar tooth extraction (1965) History of tonsillectomy (1947) Status post tubal ligation (1979) Visit Care Team Role Provider Type Emily Fall DO Family Provider Physician Primary Care Provider Specialty: Family Practice Address: [address] [place] [address], [address], [address] Email: [email or web address] Holly Sigala MD Attending Provider Physician Referring Provider Specialty: Orthopedics Orthopedic Surgery Address: [address] [place] [address], [id number] Email: [email or web address] Physical Therapy Initial Evaluation PT-OP-A Visit Information Start: 09/04/24 15:14 Freq: Status: Active Protocol: Document 09/04/24 15:14 [facility] (Rec: 09/04/24 16:59 [facility] [id number]) Out-Patient Physical Therapy Visit Information Visit Information Visit Type Initial Evaluation Visit Start Time 15:20 Visit Stop Time 16:15 Visit Number 1 Number of PRODUCE MANAGER Visits 0 PT-OP-B Current Condition Start: 09/04/24 15:14 Freq: Status: Active Protocol: Document 09/04/24 15:14 [facility] (Rec: 09/04/24 16:59 [facility] [id number]) Current Condition History of Current Condition Current Complaints planned RTKA History of Current Condition Pt reports doctor determined she is ready for TKA. she is schedule Nov 03. KAHLIL (plan to put a rail up) and have cabinets to either side into [facility]. THere is a basement but doesn't need to go down there. Pt has walk in shower and grab bars ( so no room for chair). Pt has a regular height toilet and has a raised seat w/rails and other room has a comfort ht toilet w/a rail next to it. Has a FWW, 4WW and cane. Spouse at home supportive and will help w/ socks, shoes etc and cooking and cleaning. Pt did PT with some progress but did have calf straina fter DC. Treatment Goals Patient/Caregiver Goals be able to walk miles and climb stairs and stand longer (kitchen activities and social activities) PT-OP-K Range of Motion Start: 09/04/24 15:14 Freq: Status: Active Protocol: Document 09/04/24 15:14 [facility] (Rec: 09/04/24 16:59 [facility] [id number]) Knee Goniometric Range of Motion Knee Right Flexion Active (degrees) 121 Extension Active (degrees) 15 Comments pain Left Flexion Active (degrees) 114 Extension Active (degrees) 10 Comments pain PT-OP-M Strength Start: 09/04/24 15:14 Freq: Status: Active Protocol: Document 09/04/24 15:14 [facility] (Rec: 09/04/24 16:59 [facility] [id number]) Hip Strength Hip Manual Muscle Testing Right Flexion (L2) 4 Good Abduction 4 Good External Rotation 4 Good Internal Rotation 4 Good Comments pain in back w/abd Left Flexion (L2) 4 Good Abduction 4 Good External Rotation 4 Good Internal Rotation 4 Good Knee Strength Knee Manual Muscle Testing Right Flexion (S2) 4- Good- Extension (L3) 4 Good Left Flexion (S2) 4- Good- Extension (L3) 4 Good Ankle/Foot Strength Ankle and Foot Manual Muscle Testing Right Dorsiflexion (L4) 4 Good Plantarflexion (S1) 4 Good Left Dorsiflexion (L4) 4 Good Plantarflexion (S1) 4 Good Comments PF tested seated B PT-OP-Q Treatments Start: 09/04/24 15:14 Freq: Status: Active Protocol: Document 09/04/24 15:14 [facility] (Rec: 09/04/24 16:59 [facility] [id number]) Therapeutic Activity Therapeutic Activity surgery prep Reps/Minutes 15 min Comments 1. FWW made sure set to right height and trained w/Step to and step through gait 2. up/down 4 in training stairs w/1 rail and SPC step to 3. in/out of bed w/use of cane and trials w/use of opp LE 4. sit to stands to FWW w/RLE out in front Self-Care/Home Management Treatment Education Other Education 15 min: review of TKA post op packet and information, [facility] re : how to get in/out of car and safety in the house PT-OP-T Assessment and Plan Start: 09/04/24 15:14 Freq: Status: Active Protocol: Document 09/04/24 15:14 [facility] (Rec: 09/04/24 16:59 [facility] [id number]) Physical Therapy Assessment Rehab Potential Rehabilitation Potential Good Goals mobility Mcc Goal (LTG) Pt will be indep w/HEP for post surgery and indep w/ movement mechanics w/FWW for all transfers and gait in prep for sx. LTG Duration 11/13 Assessment Summary Assessment Pt presents for pre-op visit prior to R TKA scheduled Nov 03, 2024. She trialed PT prior to this w/some success but still pain that limited her that she saw orthopedics who is recommending R TKA first and likely L UKA. She is limited in her mobility d/t pain and is motivated to return to walking and stairs comfortably. She has limited ROM and weakness as suspected w/her OA. She did well with education today re: walker use and ADLs and will follow up as needed w/PT prior to surgery. Physical Therapy Plan Frequency and Duration Frequency of Treatment 3 visits Duration of treatment (weeks) 10 Plan of Care Start Date 09/04/24 Plan of Care End Date 11/13/24 Therapeutic Interventions Therapeutic Interventions Balance Training,Gait Training ,Home Exercise Program,Joint Mobilizations,Manual Therapy, Neuromuscular Re-education, Patient/Caregiver Education, Self-Care/Home Management,Soft Tissue Mobilization,Taping, Therapeutic Activities, Therapeutic Exercises Modalities Cold Pack/Ice Massage,Electric Stimulation,Hot Packs, Infrared Therapy Next Visit Focus/Plan Next Note Type Re-Evaluation Next Visit Plan follow up on post op exercises , stepper if tolerated
--- NOTE | 2024-09-04 16:59 | PT.OPPOC ---
Addendum entered and electronically signed by Renetta Sheikh PT 12/22/24 15:06: POC sent 2nd time Original Note: Physical, Occupational & Speech Therapy At [facility] Current Diagnoses Unilateral primary osteoarthritis, right knee (09/04/24) Presence of right artificial knee joint (09/04/24) Visit Care Team Role Provider Type Emily Fall DO Family Provider Physician Primary Care Provider Specialty: Family Practice Address: [address] [place] [address], [address], [address] Email: [email or web address] Holly Sigala MD Attending Provider Physician Referring Provider Specialty: Orthopedics Orthopedic Surgery Address: [address] [place] [address], [id number] Email: [email or web address] Plan Of Care PT-OP-B Current Condition Start: 09/04/24 15:14 Freq: Status: Active Protocol: Document 09/04/24 15:14 [facility] (Rec: 09/04/24 16:59 [facility] [id number]) Current Condition History of Current Condition Current Complaints planned RTKA History of Current Condition Pt reports doctor determined she is ready for TKA. she is schedule Nov 03. 2 KAHLIL (plan to put a rail up) and have cabinets to either side into [facility]. THere is a basement but doesn't need to go down there. Pt has walk in shower and grab bars ( so no room for chair). Pt has a regular height toilet and has a raised seat w/rails and other room has a comfort ht toilet w/a rail next to it. Has a FWW, 4WW and cane. Spouse at home supportive and will help w/ socks, shoes etc and cooking and cleaning. Pt did PT with some progress but did have calf straina fter DC. Treatment Goals Patient/Caregiver Goals be able to walk miles and climb stairs and stand longer (kitchen activities and social activities) PT-OP-T Assessment and Plan Start: 09/04/24 15:14 Freq: Status: Active Protocol: Document 09/04/24 15:14 [facility] (Rec: 09/04/24 16:59 [facility] [id number]) Physical Therapy Assessment Rehab Potential Rehabilitation Potential Good Goals mobility Stone Repairer Goal (LTG) Pt will be indep w/HEP for post surgery and indep w/ movement mechanics w/FWW for all transfers and gait in prep for sx. LTG Duration 11/13 Assessment Summary Assessment Pt presents for pre-op visit prior to R TKA scheduled Nov 03, 2024. She trialed PT prior to this w/some success but still pain that limited her that she saw orthopedics who is recommending R TKA first and likely L UKA. She is limited in her mobility d/t pain and is motivated to return to walking and stairs comfortably. She has limited ROM and weakness as suspected w/her OA. She did well with education today re: walker use and ADLs and will follow up as needed w/PT prior to surgery. Physical Therapy Plan Frequency and Duration Frequency of Treatment 3 visits Duration of treatment (weeks) 10 Plan of Care Start Date 09/04/24 Plan of Care End Date 11/13/24 Therapeutic Interventions Therapeutic Interventions Balance Training,Gait Training ,Home Exercise Program,Joint Mobilizations,Manual Therapy, Neuromuscular Re-education, Patient/Caregiver Education, Self-Care/Home Management,Soft Tissue Mobilization,Taping, Therapeutic Activities, Therapeutic Exercises Modalities Cold Pack/Ice Massage,Electric Stimulation,Hot Packs, Infrared Therapy Next Visit Focus/Plan Next Note Type Re-Evaluation Next Visit Plan follow up on post op exercises , stepper if tolerated Plan of Care Dates Plan of Care Start Date 09/04/24 Plan of Care End Date 11/13/24 Electronically Signed by: Renetta Sheikh, PT 09/04/24 0779 If you are in agreement with this Plan of Care, please return a signed and dated copy. I have reviewed this Plan of Care and certify that the skilled therapy services above are required to meet the patient?s needs. Physician Signature Date Printed Name and Credentials Clinical Instructor Signature Printed Name and Credentials
--- NOTE | 2024-09-04 17:38 | PT.OIE ---
Current Diagnoses Unilateral primary osteoarthritis, right knee (09/04/24) Presence of right artificial knee joint (09/04/24) Past Medical History (Last Reviewed 08/04/24 @ 09:52 by Mikayla Del Cid DO) BCC (basal cell carcinoma), face (1996) Chicken pox Eczema Fecal incontinence Foot pain (2001) Hayfever Hearing loss (1989) Hemorrhoids (1974) Measles Mumps Osteoarthritis (~1999) Retinal detachment Rosacea Rubella Shoulder pain (2013) Vertigo Past Surgical History (Last Reviewed 08/04/24 @ 09:52 by Mikayla Del Cid DO) Anesthesia History of biopsy (01/14/24) History of nasal surgery (1961) History of third molar tooth extraction (1965) History of tonsillectomy (1947) Status post tubal ligation (1979) Visit Care Team Role Provider Type Emily Fall DO Family Provider Physician Primary Care Provider Specialty: Family Practice Address: [address] [place] [address], [address], [address] Email: [email or web address] Holly Sigala MD Attending Provider Physician Referring Provider Specialty: Orthopedics Orthopedic Surgery Address: [address] [place] [address], [id number] Email: [email or web address] Physical Therapy Initial Evaluation PT-OP-A Visit Information Start: 09/04/24 15:14 Freq: Status: Active Protocol: Document 09/04/24 15:14 [facility] (Rec: 09/04/24 16:59 [facility] [id number]) Out-Patient Physical Therapy Visit Information Visit Information Visit Type Initial Evaluation Visit Start Time 15:20 Visit Stop Time 16:15 Visit Number 1 Number of CUSTOMER OPERATIONS MANAGER Visits 0 PT-OP-B Current Condition Start: 09/04/24 15:14 Freq: Status: Active Protocol: Document 09/04/24 15:14 [facility] (Rec: 09/04/24 16:59 [facility] [id number]) Current Condition History of Current Condition Current Complaints planned RTKA History of Current Condition Pt reports doctor determined she is ready for TKA. she is schedule Nov 03. KAHLIL (plan to put a rail up) and have cabinets to either side into [facility]. THere is a basement but doesn't need to go down there. Pt has walk in shower and grab bars ( so no room for chair). Pt has a regular height toilet and has a raised seat w/rails and other room has a comfort ht toilet w/a rail next to it. Has a FWW, 4WW and cane. Spouse at home supportive and will help w/ socks, shoes etc and cooking and cleaning. Pt did PT with some progress but did have calf straina fter DC. Treatment Goals Patient/Caregiver Goals be able to walk miles and climb stairs and stand longer (kitchen activities and social activities) PT-OP-K Range of Motion Start: 09/04/24 15:14 Freq: Status: Active Protocol: Document 09/04/24 15:14 [facility] (Rec: 09/04/24 16:59 [facility] [id number]) Knee Goniometric Range of Motion Knee Right Flexion Active (degrees) 121 Extension Active (degrees) 15 Comments pain Left Flexion Active (degrees) 114 Extension Active (degrees) 10 Comments pain PT-OP-M Strength Start: 09/04/24 15:14 Freq: Status: Active Protocol: Document 09/04/24 15:14 [facility] (Rec: 09/04/24 16:59 [facility] [id number]) Hip Strength Hip Manual Muscle Testing Right Flexion (L2) 4 Good Abduction 4 Good External Rotation 4 Good Internal Rotation 4 Good Comments pain in back w/abd Left Flexion (L2) 4 Good Abduction 4 Good External Rotation 4 Good Internal Rotation 4 Good Knee Strength Knee Manual Muscle Testing Right Flexion (S2) 4- Good- Extension (L3) 4 Good Left Flexion (S2) 4- Good- Extension (L3) 4 Good Ankle/Foot Strength Ankle and Foot Manual Muscle Testing Right Dorsiflexion (L4) 4 Good Plantarflexion (S1) 4 Good Left Dorsiflexion (L4) 4 Good Plantarflexion (S1) 4 Good Comments PF tested seated B PT-OP-Q Treatments Start: 09/04/24 15:14 Freq: Status: Active Protocol: Document 09/04/24 15:14 [facility] (Rec: 09/04/24 16:59 [facility] [id number]) Therapeutic Exercises Supine Exercises SAQ Side right Reps/Minutes 3 HS set Side right Reps/Minutes 5sec x2 heel slides Side right Reps/Minutes 2 Sitting Exercises APs Side right Reps/Minutes 10 LAQ Side right Reps/Minutes 4 heel slides Side right Reps/Minutes 2 Therapeutic Activity Therapeutic Activity surgery prep Reps/Minutes 15 min Comments 1. FWW made sure set to right height and trained w/Step to and step through gait 2. up/down 4 in training stairs w/1 rail and SPC step to 3. in/out of bed w/use of cane and trials w/use of opp LE 4. sit to stands to FWW w/RLE out in front Self-Care/Home Management Treatment Education Other Education 15 min: review of TKA post op packet and information, [facility] re : how to get in/out of car and safety in the house PT-OP-T Assessment and Plan Start: 09/04/24 15:14 Freq: Status: Active Protocol: Document 09/04/24 15:14 [facility] (Rec: 09/04/24 16:59 [facility] [id number]) Physical Therapy Assessment Rehab Potential Rehabilitation Potential Good Goals mobility Patrol Lady Goal (LTG) Pt will be indep w/HEP for post surgery and indep w/ movement mechanics w/FWW for all transfers and gait in prep for sx. LTG Duration 11/13 Assessment Summary Assessment Pt presents for pre-op visit prior to R TKA scheduled Nov 03, 2024. She trialed PT prior to this w/some success but still pain that limited her that she saw orthopedics who is recommending R TKA first and likely L UKA. She is limited in her mobility d/t pain and is motivated to return to walking and stairs comfortably. She has limited ROM and weakness as suspected w/her OA. She did well with education today re: walker use and ADLs and will follow up as needed w/PT prior to surgery. Physical Therapy Plan Frequency and Duration Frequency of Treatment 3 visits Duration of treatment (weeks) 10 Plan of Care Start Date 09/04/24 Plan of Care End Date 11/13/24 Therapeutic Interventions Therapeutic Interventions Balance Training,Gait Training ,Home Exercise Program,Joint Mobilizations,Manual Therapy, Neuromuscular Re-education, Patient/Caregiver Education, Self-Care/Home Management,Soft Tissue Mobilization,Taping, Therapeutic Activities, Therapeutic Exercises Modalities Cold Pack/Ice Massage,Electric Stimulation,Hot Packs, Infrared Therapy Next Visit Focus/Plan Next Note Type Re-Evaluation Next Visit Plan follow up on post op exercises , stepper if tolerated
--- NOTE | 2024-10-23 16:38 | PT.OPDS ---
Current Diagnoses Unilateral primary osteoarthritis, right knee (09/04/24) Presence of right artificial knee joint (09/04/24) Visit Care Team Role Provider Type Eimly Fall DO Family Provider Physician Primary Care Provider Specialty: Family Practice Address: [address] [place] [address], [address], [address] Email: [email or web address] Holly Sigala MD Attending Provider Physician Referring Provider Specialty: Orthopedics Orthopedic Surgery Address: [address] [place] [address], [address] Email: [email or web address] Visit Number Visit Number 1 Discharge Summary PT-OP-B Current Condition Start: 09/04/24 15:14 Freq: Status: Active Protocol: Document 09/04/24 15:14 [facility] (Rec: 09/04/24 16:59 [facility] [id number]) Current Condition History of Current Condition Current Complaints planned RTKA History of Current Condition Pt reports doctor determined she is ready for TKA. she is schedule Nov 03. 2 KAHLIL (plan to put a rail up) and have cabinets to either side into [facility]. THere is a basement but doesn't need to go down there. Pt has walk in shower and grab bars (sm so no room for chair). Pt has a regular height toilet and has a raised seat w/rails and other room has a comfort ht toilet w/a rail next to it. Has a FWW, 4WW and cane. Spouse at home supportive and will help w/ socks, shoes etc and cooking and cleaning. Pt did PT with some progress but did have calf straina fter DC. Treatment Goals Patient/Caregiver Goals be able to walk miles and climb stairs and stand longer (kitchen activities and social activities) PT-OP-K Range of Motion Start: 09/04/24 15:14 Freq: Status: Active Protocol: Document 09/04/24 15:14 [facility] (Rec: 09/04/24 16:59 [facility] [id number]) Knee Goniometric Range of Motion Knee Right Flexion Active (degrees) 121 Extension Active (degrees) 15 Comments pain Left Flexion Active (degrees) 114 Extension Active (degrees) 10 Comments pain PT-OP-M Strength Start: 09/04/24 15:14 Freq: Status: Active Protocol: Document 09/04/24 15:14 [facility] (Rec: 09/04/24 16:59 [facility] [id number]) Hip Strength Hip Manual Muscle Testing Right Flexion (L2) 4 Good Abduction 4 Good External Rotation 4 Good Internal Rotation 4 Good Comments pain in back w/abd Left Flexion (L2) 4 Good Abduction 4 Good External Rotation 4 Good Internal Rotation 4 Good Knee Strength Knee Manual Muscle Testing Right Flexion (S2) 4- Good- Extension (L3) 4 Good Left Flexion (S2) 4- Good- Extension (L3) 4 Good Ankle/Foot Strength Ankle and Foot Manual Muscle Testing Right Dorsiflexion (L4) 4 Good Plantarflexion (S1) 4 Good Left Dorsiflexion (L4) 4 Good Plantarflexion (S1) 4 Good Comments PF tested seated B PT-OP-T Assessment and Plan Start: 09/04/24 15:14 Freq: Status: Active Protocol: Document 10/23/24 16:37 [facility] (Rec: 10/23/24 16:38 [facility] [id number]) Physical Therapy Assessment Assessment Summary Assessment Sonya has not been seen for PT s/p her preop visit for her R TKA. She has cancelled her visits and will be discharged at this time. Physical Therapy Plan Discharge Physical Therapy Discharge Reasons No Longer Attending PT
--- NOTE | 2024-11-10 16:45 | PT.OTRE ---
Current Diagnoses Unilateral primary osteoarthritis, right knee (11/10/24) Presence of right artificial knee joint (11/10/24) Past Medical History (Last Reviewed 08/04/24 @ 09:52 by Mikayla Del Cid DO) BCC (basal cell carcinoma), face (1996) Chicken pox Eczema Fecal incontinence Foot pain (2001) Hayfever Hearing loss (1989) Hemorrhoids (1974) Measles Mumps Osteoarthritis (~1999) Retinal detachment Rosacea Rubella Shoulder pain (2013) Vertigo Surgical History (Last Reviewed 08/04/24 @ 09:52 by Mikayla Del Cid DO) Anesthesia History of biopsy (01/14/24) History of nasal surgery (1961) History of third molar tooth extraction (1965) History of tonsillectomy (1947) Status post tubal ligation (1979) Visit Care Team Role Provider Type Emily Fall DO Family Provider Physician Primary Care Provider Specialty: Family Practice Address: [address] [place] [address], [address] Email: [email or web address] Holly Sigala MD Attending Provider Physician Referring Provider Specialty: Orthopedics Orthopedic Surgery Address: [address] [place] [address], [address] Email: [email or web address] Physical Therapy Re-Evaluation PT-OP-A Visit Information Start: 09/04/24 15:14 Freq: Status: Active Protocol: Document 11/10/24 13:01 [facility] (Rec: 11/10/24 13:50 [facility] [id number]) Out-Patient Physical Therapy Visit Information Visit Information Visit Type Re-Evaluation Visit Start Time 13:01 Visit Number 2 (10/24) Number of SOIL ENGINEER Visits 0 PT-OP-B Current Condition Start: 09/04/24 15:14 Freq: Status: Active Protocol: Document 11/10/24 13:01 [facility] (Rec: 11/10/24 13:50 [facility] [id number]) Current Condition History of Current Condition Current Complaints planned RTKA History of Current Condition re eval 11/10- Pt had TKA R . Had one tip over w/ but he was able to catch her. NO complications w/ surgery. 11/14 sees surgeon. tried exercises like APs and quad set and LAQ. doing okay w/in/ out of house w/2 KAHLIL. She has been having to get up a lot to go to the bathroom. Uses commode occ at night. Using walker. Haven't showered. Waiting until appt w/doctor. enies calf pain IE:Pt reports doctor determined she is ready for TKA. she is schedule Nov 03. 2 KAHLIL (plan to put a rail up) and have cabinets to either side into [facility]. THere is a basement but doesn't need to go down there. Pt has walk in shower and grab bars (sm so no room for chair). Pt has a regular height toilet and has a raised seat w/rails and other room has a comfort ht toilet w/a rail next to it. Has a FWW, 4WW and cane. Spouse at home supportive and will help w/socks, shoes etc and cooking and cleaning. Pt did PT with some progress but did have calf straina fter DC. Treatment Goals Patient/Caregiver Goals be able to walk miles and climb stairs and stand longer (kitchen activities and social activities) PT-OP-G Mobility & Gait Start: 09/04/24 15:14 Freq: Status: Active Protocol: Document 11/10/24 13:01 [facility] (Rec: 11/10/24 13:50 [facility] [id number]) OP Mobility Evaluation Bed Mobility Supine to and from Sit indep Transfers Sit to Stand uses FWW and UEs OP Gait Assessment Comments Gait Comments amb w/FWW w/slightly dec stance time RLE PT-OP-K Range of Motion Start: 09/04/24 15:14 Freq: Status: Active Protocol: Document 11/10/24 13:01 [facility] (Rec: 11/10/24 13:50 [facility] [id number]) Knee Goniometric Range of Motion Knee Measured in Degrees Left Flexion Active (degrees) 71 Extension Active (degrees) 15 PT-OP-M Strength Start: 09/04/24 15:14 Freq: Status: Active Protocol: Document 11/10/24 13:01 [facility] (Rec: 11/10/24 13:50 [facility] [id number]) Hip Strength Hip Manual Muscle Testing Right Flexion (L2) 3- Fair- External Rotation 3 Fair Internal Rotation 3 Fair Comments pain in back w/abd Left Flexion (L2) 4 Good External Rotation 4 Good Internal Rotation 4 Good Knee Strength Knee Manual Muscle Testing Right Flexion (S2) 3+ Fair+ Extension (L3) 3- Fair- Left Flexion (S2) 4 Good Extension (L3) 4 Good Ankle/Foot Strength Ankle and Foot Manual Muscle Testing Right Dorsiflexion (L4) 4 Good Plantarflexion (S1) 4 Good Left Dorsiflexion (L4) 5 Normal Plantarflexion (S1) 5 Normal Comments PF tested seated B PT-OP-Q Treatments Start: 09/04/24 15:14 Freq: Status: Active Protocol: Document 11/10/24 13:01 [facility] (Rec: 11/10/24 13:50 [facility] [id number]) Cardio Equipment Recumbent Stepper (Sci-Fit) Duration (Minutes) 2 Resistance 0 Therapeutic Exercises Supine Exercises SLR Supine Exercise Name AAROM w/PT//strap Side right Reps/Minutes 5 quad set Side right Reps/Minutes 5 sec x5 SAQ Side right Reps/Minutes 3secx6 HS set Side right Reps/Minutes 5sec x5 heel slides Side right Reps/Minutes 5 sec x6 Sitting Exercises APs Side right Reps/Minutes 2 LAQ Side right Reps/Minutes 5 heel slides Side right Reps/Minutes 5 sec x5 Standing Exercises heel raises Side bilateral Equipment Used walker Reps/Minutes 10 Self-Care/Home Management Treatment Education Other Education 5 min: encouraged to do ice after exercise, and gradual dec pain meds as able and not just stop them suddenly so can keep ahead of pain. PT-OP-T Assessment and Plan Start: 09/04/24 15:14 Freq: Status: Active Protocol: Document 11/10/24 13:01 [facility] (Rec: 11/10/24 13:50 [facility] [id number]) Physical Therapy Assessment Rehab Potential Rehabilitation Potential Good Evaluation Complexity Number of Personal Factors/Comorbidities 3 or More Number of Body Systems Impaired 4 or More Clinical Presentation at Evaluation Evolving Impairments Impairments Activity Tolerance,Balance, Edema,Functional Activities, Functional Mobility,Gait,Pain, Posture,ROM,Soft Tissue Mobility,Strength,Transfers Goals gait Short Term Goal (STG) Pt will amb w/o AD w/o major gait deviations STG Duration 3/7 Show Design Supervisor Goal (LTG) Pt will report able to amb 1 mile w/o R knee pain greater than 2/10 LTG Duration 01/19 ROM Impairment 15-71 Short Term Goal (STG) Pt will have improved R knee ROM to 8-100 deg ROM to allow improved gait. STG Duration 12/11 Intermediate Goal (LTG) Pt will have improved R knee ROM to 0-120 deg ROM to allow improved gait. LTG Duration 01/19 strength Short Term Goal (STG) Pt will be able to do sit to stand w/RLE under her STG Duration 12/19 Intermediate Goal (LTG) Pt will score at least 4+/5 on all BLE MMT to show improved strength to allow for greater ease with daily activities. LTG Duration 01/19 mobility Show Design Supervisor Goal (LTG) Pt will be able to reciprocate up/down stairs w/rail w/o pain in R knee. LTG Duration 01/19 Assessment Summary Assessment Pt presents 7 days s/p R TKA with good pain control and independence w/transfers and gait, but cont use of opiods still at this time for pain management. She started exercises at home in the past couple days, but not all of them. She did require cues with exercises and encouraged to do 2-3x/day and be slow about weaning off opiods when she feels ready. She has significant bruising of knee, lower leg, and thigh and has dec overall ROM and strength ofRLE. She would benefit from skilled PT to work on ROM, strength, balance, gait and mobility. Physical Therapy Plan Frequency and Duration Frequency of Treatment 2x/Week Duration of treatment (weeks) 10 Plan of Care Start Date 11/10/24 Plan of Care End Date 01/19/25 Therapeutic Interventions Therapeutic Interventions Balance Training,Gait Training ,Home Exercise Program,Joint Mobilizations,Manual Therapy, Neuromuscular Re-education, Patient/Caregiver Education, Self-Care/Home Management,Soft Tissue Mobilization,Taping, Therapeutic Activities, Therapeutic Exercises Modalities Cold Pack/Ice Massage,Electric Stimulation,Hot Packs, Infrared Therapy Next Visit Focus/Plan Next Note Type Treatment Note Next Visit Plan review exercises, gentle leg press, gait training, recumbant stepper
--- NOTE | 2024-11-10 16:45 | PT.OPPOC ---
Addendum entered and electronically signed by Renetta Sheikh PT 12/22/24 15:07: POC sent 2nd time Original Note: Physical, Occupational & Speech Therapy At [facility] Current Diagnoses Unilateral primary osteoarthritis, right knee (11/10/24) Presence of right artificial knee joint (11/10/24) Visit Care Team Role Provider Type Emily Fall DO Family Provider Physician Primary Care Provider Specialty: Family Practice Address: [address] [place] [address], [address], [address] Email: [email or web address] Holly Sigala MD Attending Provider Physician Referring Provider Specialty: Orthopedics Orthopedic Surgery Address: [address] [place] [address], [address] Email: [email or web address] Plan Of Care PT-OP-B Current Condition Start: 09/04/24 15:14 Freq: Status: Active Protocol: Document 11/10/24 13:01 [facility] (Rec: 11/10/24 13:50 [facility] [id number]) Current Condition History of Current Condition Current Complaints planned RTKA History of Current Condition re eval 11/10- Pt had TKA R . Had one tip over w/ but he was able to catch her. NO complications w/ surgery. 11/14 sees surgeon. tried exercises like APs and quad set and LAQ. doing okay w/in/ out of house w/2 KAHLIL. She has been having to get up a lot to go to the bathroom. Uses commode occ at night. Using walker. Haven't showered. Waiting until appt w/doctor. enies calf pain IE:Pt reports doctor determined she is ready for TKA. she is schedule Nov 03. 2 KAHLIL (plan to put a rail up) and have cabinets to either side into [facility]. THere is a basement but doesn't need to go down there. Pt has walk in shower and grab bars ( so no room for chair). Pt has a regular height toilet and has a raised seat w/rails and other room has a comfort ht toilet w/a rail next to it. Has a FWW, 4WW and cane. Spouse at home supportive and will help w/socks, shoes etc and cooking and cleaning. Pt did PT with some progress but did have calf straina fter DC. Treatment Goals Patient/Caregiver Goals be able to walk miles and climb stairs and stand longer (kitchen activities and social activities) PT-OP-T Assessment and Plan Start: 09/04/24 15:14 Freq: Status: Active Protocol: Document 11/10/24 13:01 [facility] (Rec: 11/10/24 13:50 [facility] [id number]) Physical Therapy Assessment Rehab Potential Rehabilitation Potential Good Evaluation Complexity Number of Personal Factors/Comorbidities 3 or More Number of Body Systems Impaired 4 or More Clinical Presentation at Evaluation Evolving Impairments Impairments Activity Tolerance,Balance, Edema,Functional Activities, Functional Mobility,Gait,Pain, Posture,ROM,Soft Tissue Mobility,Strength,Transfers Goals gait Short Term Goal (STG) Pt will amb w/o AD w/o major gait deviations STG Duration 12/19 Correction Goal (LTG) Pt will report able to amb 1 mile w/o R knee pain greater than 2/10 LTG Duration 01/19 ROM Impairment 15-71 Short Term Goal (STG) Pt will have improved R knee ROM to 8-100 deg ROM to allow improved gait. STG Duration 12/11 Ict Support Technicians Goal (LTG) Pt will have improved R knee ROM to 0-120 deg ROM to allow improved gait. LTG Duration 01/19 strength Short Term Goal (STG) Pt will be able to do sit to stand w/RLE under her STG Duration 12/19 Correction Goal (LTG) Pt will score at least 4+/5 on all BLE MMT to show improved strength to allow for greater ease with daily activities. LTG Duration 01/19 mobility Correction Goal (LTG) Pt will be able to reciprocate up/down stairs w/rail w/o pain in R knee. LTG Duration 01/19 Assessment Summary Assessment Pt presents 7 days s/p R TKA with good pain control and independence w/transfers and gait, but cont use of opiods still at this time for pain management. She started exercises at home in the past couple days, but not all of them. She did require cues with exercises and encouraged to do 2-3x/day and be slow about weaning off opiods when she feels ready. She has significant bruising of knee, lower leg, and thigh and has dec overall ROM and strength ofRLE. She would benefit from skilled PT to work on ROM, strength, balance, gait and mobility. Physical Therapy Plan Frequency and Duration Frequency of Treatment 2x/Week Duration of treatment (weeks) 10 Plan of Care Start Date 11/10/24 Plan of Care End Date 01/19/25 Therapeutic Interventions Therapeutic Interventions Balance Training,Gait Training ,Home Exercise Program,Joint Mobilizations,Manual Therapy, Neuromuscular Re-education, Patient/Caregiver Education, Self-Care/Home Management,Soft Tissue Mobilization,Taping, Therapeutic Activities, Therapeutic Exercises Modalities Cold Pack/Ice Massage,Electric Stimulation,Hot Packs, Infrared Therapy Next Visit Focus/Plan Next Note Type Treatment Note Next Visit Plan review exercises, gentle leg press, gait training, recumbant stepper Plan of Care Dates Plan of Care Start Date 11/10/24 Plan of Care End Date 01/19/25 Electronically Signed by: Renetta Sheikh, PT 11/10/24 2156 If you are in agreement with this Plan of Care, please return a signed and dated copy. I have reviewed this Plan of Care and certify that the skilled therapy services above are required to meet the patient?s needs. Physician Signature Date Printed Name and Credentials Clinical Instructor Signature Printed Name and Credentials
--- NOTE | 2024-11-12 14:24 | PT.OTN ---
Current Diagnoses Unilateral primary osteoarthritis, right knee (11/12/24) Presence of right artificial knee joint (11/12/24) Physical Therapy Treatment Note PT-OP-A Visit Information Start: 09/04/24 15:14 Freq: Status: Active Protocol: Document 11/12/24 12:56 AB (Rec: 11/12/24 14:22 AB [id number]) Out-Patient Physical Therapy Visit Information Visit Information Visit Type Treatment Note Visit Start Time 13:04 Visit Stop Time 13:48 Visit Number 3 Number of CEMENT FINISHER Visits 1 PT-OP-B Current Condition Start: 09/04/24 15:14 Freq: Status: Active Protocol: Document 11/10/24 13:01 [facility] (Rec: 11/10/24 13:50 [facility] [id number]) Current Condition History of Current Condition Current Complaints planned RTKA History of Current Condition re eval 11/10- Pt had TKA R . Had one tip over w/ but he was able to catch her. NO complications w/ surgery. 11/14 sees surgeon. tried exercises like APs and quad set and LAQ. doing okay w/in/ out of house w/2 KAHLIL. She has been having to get up a lot to go to the bathroom. Uses commode occ at night. Using walker. Haven't showered. Waiting until appt w/doctor. enies calf pain IE:Pt reports doctor determined she is ready for TKA. she is schedule Nov 03. 2 KAHLIL (plan to put a rail up) and have cabinets to either side into [facility]. THere is a basement but doesn't need to go down there. Pt has walk in shower and grab bars ( so no room for chair). Pt has a regular height toilet and has a raised seat w/rails and other room has a comfort ht toilet w/a rail next to it. Has a FWW, 4WW and cane. Spouse at home supportive and will help w/socks, shoes etc and cooking and cleaning. Pt did PT with some progress but did have calf straina fter DC. Treatment Goals Patient/Caregiver Goals be able to walk miles and climb stairs and stand longer (kitchen activities and social activities) PT-OP-C Subjective Start: 09/04/24 15:14 Freq: Status: Active Protocol: Document 11/12/24 12:56 AB (Rec: 11/12/24 14:22 AB [id number]) OP-PT Subjective Patient Comments Patient Comments Patient rates pain 4/10 start of session. Patient transfers sit to stand right LE extended with UE use. lacking 5 deg ext to 85 deg flexion right knee start of session. PT-OP-G Mobility & Gait Start: 09/04/24 15:14 Freq: Status: Active Protocol: Document 11/10/24 13:01 [facility] (Rec: 11/10/24 13:50 [facility] [id number]) OP Mobility Evaluation Bed Mobility Supine to and from Sit indep Transfers Sit to Stand uses FWW and UEs OP Gait Assessment Comments Gait Comments amb w/FWW w/slightly dec stance time RLE PT-OP-K Range of Motion Start: 09/04/24 15:14 Freq: Status: Active Protocol: Document 11/10/24 13:01 [facility] (Rec: 11/10/24 13:50 [facility] [id number]) Knee Goniometric Range of Motion Knee Left Flexion Active (degrees) 71 Extension Active (degrees) 15 PT-OP-M Strength Start: 09/04/24 15:14 Freq: Status: Active Protocol: Document 11/10/24 13:01 [facility] (Rec: 11/10/24 13:50 [facility] [id number]) Hip Strength Hip Manual Muscle Testing Right Flexion (L2) 3- Fair- External Rotation 3 Fair Internal Rotation 3 Fair Comments pain in back w/abd Left Flexion (L2) 4 Good External Rotation 4 Good Internal Rotation 4 Good Knee Strength Knee Manual Muscle Testing Right Flexion (S2) 3+ Fair+ Extension (L3) 3- Fair- Left Flexion (S2) 4 Good Extension (L3) 4 Good Ankle/Foot Strength Ankle and Foot Manual Muscle Testing Right Dorsiflexion (L4) 4 Good Plantarflexion (S1) 4 Good Left Dorsiflexion (L4) 5 Normal Plantarflexion (S1) 5 Normal Comments PF tested seated B PT-OP-Q Treatments Start: 09/04/24 15:14 Freq: Status: Active Protocol: Document 11/12/24 12:56 AB (Rec: 11/12/24 14:22 AB [id number]) Cardio Equipment Recumbent Stepper (Sci-Fit) Duration (Minutes) 2 Resistance 0 Other 9 Gym Equipment Shuttle Recovery single leg Details R 12 # Reps/Time X10 bilateral Details 25# Reps/Time X10 X2 Therapeutic Exercises Supine Exercises SLR Side right Reps/Minutes X10 quad set Side right Reps/Minutes sec x10 heel slides Supine Exercise Name 1. on ball 2 AROM Reps/Minutes 1. 2 min 2. X 10 Therapeutic Activity Therapeutic Activity sit to stand Comments verbal cues to inc knee flexion to 90 or greater if able, to flex R knee to the position the L knee naturally flexes prior to sit to stand X2 Gait Training Gait Activity FWW Device Used FWW Level of Assistance supervision Surface level Comments ~ focus on relaxing LE during swing phase and increase force on FWW through UE's stance phase ~12 feet X 2 Manual Therapy Treatment Soft Tissue Mobilization R knee Body Location ant proximal to ankle to proximal quad Mobilization Type Manual Lymphatic Drainage, Myofascial Release Intensity/Depth Superficial Body Position Hooklying Comments avoiding bruises healing incision PT-OP-T Assessment and Plan Start: 09/04/24 15:14 Freq: Status: Active Protocol: Document 11/12/24 12:56 AB (Rec: 11/12/24 14:22 AB [id number]) Physical Therapy Assessment Goals gait Short Term Goal (STG) Pt will amb w/o AD w/o major gait deviations STG Duration 12/19 Jail Goal (LTG) Pt will report able to amb 1 mile w/o R knee pain greater than 2/10 LTG Duration 01/19 ROM Impairment 15-71 Short Term Goal (STG) Pt will have improved R knee ROM to 8-100 deg ROM to allow improved gait. STG Duration 12/11 Office Electrician Goal (LTG) Pt will have improved R knee ROM to 0-120 deg ROM to allow improved gait. LTG Duration 01/19 strength Short Term Goal (STG) Pt will be able to do sit to stand w/RLE under her STG Duration 12/19 Office Electrician Goal (LTG) Pt will score at least 4+/5 on all BLE MMT to show improved strength to allow for greater ease with daily activities. LTG Duration 01/19 mobility Office Electrician Goal (LTG) Pt will be able to reciprocate up/down stairs w/rail w/o pain in R knee. LTG Duration 01/19 Assessment Summary Assessment AROM right knee 90 deg post manual and exercise. Physical Therapy Plan Frequency and Duration Frequency of Treatment 2x/Week Duration of treatment (weeks) 10 Plan of Care Start Date 11/10/24 Plan of Care End Date 01/19/25 Next Visit Focus/Plan Next Note Type Treatment Note Next Visit Plan review exercises, gentle leg press, gait training, recumbant stepper
--- NOTE | 2024-11-17 12:23 | PT.OTN ---
Current Diagnoses Unilateral primary osteoarthritis, right knee (11/17/24) Presence of right artificial knee joint (11/17/24) Physical Therapy Treatment Note PT-OP-A Visit Information Start: 09/04/24 15:14 Freq: Status: Active Protocol: Document 11/17/24 11:31 AB (Rec: 11/17/24 12:23 AB [id number]) Out-Patient Physical Therapy Visit Information Visit Information Visit Type Treatment Note Visit Start Time 11:35 Visit Stop Time 12:19 Visit Number 4 Number of CARBIDE TOOL DIE MAKER Visits 2 PT-OP-B Current Condition Start: 09/04/24 15:14 Freq: Status: Active Protocol: Document 11/10/24 13:01 [facility] (Rec: 11/10/24 13:50 [facility] [id number]) Current Condition History of Current Condition Current Complaints planned RTKA History of Current Condition re eval 11/10- Pt had TKA R . Had one tip over w/ but he was able to catch her. NO complications w/ surgery. 11/14 sees surgeon. tried exercises like APs and quad set and LAQ. doing okay w/in/ out of house w/2 KAHLIL. She has been having to get up a lot to go to the bathroom. Uses commode occ at night. Using walker. Haven't showered. Waiting until appt w/doctor. enies calf pain IE:Pt reports doctor determined she is ready for TKA. she is schedule Nov 03. 2 KAHLIL (plan to put a rail up) and have cabinets to either side into [facility]. THere is a basement but doesn't need to go down there. Pt has walk in shower and grab bars ( so no room for chair). Pt has a regular height toilet and has a raised seat w/rails and other room has a comfort ht toilet w/a rail next to it. Has a FWW, 4WW and cane. Spouse at home supportive and will help w/socks, shoes etc and cooking and cleaning. Pt did PT with some progress but did have calf straina fter DC. Treatment Goals Patient/Caregiver Goals be able to walk miles and climb stairs and stand longer (kitchen activities and social activities) PT-OP-C Subjective Start: 09/04/24 15:14 Freq: Status: Active Protocol: Document 11/17/24 11:31 AB (Rec: 11/17/24 12:23 AB [id number]) OP-PT Subjective Patient Comments Patient Comments Payton rates pain 3/10 pain right knee, comments some of the exercises are killing it. Patient comments she rediscovered Dena which helps, but cannot but it everywhere she would like to. Sit to stand with R knee extended. Lacking 6 deg ext to 95 deg flexion AROM right knee. PT-OP-G Mobility & Gait Start: 09/04/24 15:14 Freq: Status: Active Protocol: Document 11/10/24 13:01 [facility] (Rec: 11/10/24 13:50 [facility] [id number]) OP Mobility Evaluation Bed Mobility Supine to and from Sit indep Transfers Sit to Stand uses FWW and UEs OP Gait Assessment Comments Gait Comments amb w/FWW w/slightly dec stance time RLE PT-OP-K Range of Motion Start: 09/04/24 15:14 Freq: Status: Active Protocol: Document 11/10/24 13:01 [facility] (Rec: 11/10/24 13:50 [facility] [id number]) Knee Goniometric Range of Motion Knee Left Flexion Active (degrees) 71 Extension Active (degrees) 15 PT-OP-M Strength Start: 09/04/24 15:14 Freq: Status: Active Protocol: Document 11/10/24 13:01 [facility] (Rec: 11/10/24 13:50 [facility] [id number]) Hip Strength Hip Manual Muscle Testing Right Flexion (L2) 3- Fair- External Rotation 3 Fair Internal Rotation 3 Fair Comments pain in back w/abd Left Flexion (L2) 4 Good External Rotation 4 Good Internal Rotation 4 Good Knee Strength Knee Manual Muscle Testing Right Flexion (S2) 3+ Fair+ Extension (L3) 3- Fair- Left Flexion (S2) 4 Good Extension (L3) 4 Good Ankle/Foot Strength Ankle and Foot Manual Muscle Testing Right Dorsiflexion (L4) 4 Good Plantarflexion (S1) 4 Good Left Dorsiflexion (L4) 5 Normal Plantarflexion (S1) 5 Normal Comments PF tested seated B PT-OP-Q Treatments Start: 09/04/24 15:14 Freq: Status: Active Protocol: Document 11/17/24 11:31 AB (Rec: 11/17/24 12:23 AB [id number]) Gym Equipment Shuttle Recovery single leg Details 25# L and right LE Reps/Time X10 bilateral Details 32# ( intiated at 50, but pt comments all push is L LE Reps/Time X15 Therapeutic Exercises Supine Exercises ankle pumps Side bilateral Reps/Minutes one min Comments VC to focus on PF hamstring stretch Supine Exercise Name from hooklying holding LE with towel behind knee Side right Reps/Minutes one min X 2 Comments Verbal cues quad set Side right Reps/Minutes 5 Comments towel roll under knee SAQ Side right Reps/Minutes 10X 3 heel slides Supine Exercise Name 1. on ball 2. AROM Reps/Minutes 1. 2 min 2. X 10 Therapeutic Activity Therapeutic Activity sit to stand Reps/Minutes X1 X 3 during session Comments Review mech of sit to stand and impotance of R knee just past 90 deg for sit to stand Gait Training Gait Activity FWW Device Used FWW Level of Assistance supervision Surface level Comments 16 feet, verbal cues for knee straight on heel strike. Manual Therapy Treatment Consent Patient gave verbal consent for manual Yes treatment Soft Tissue Mobilization R knee Body Location ant proximal to ankle to proximal quad Mobilization Type Manual Lymphatic Drainage, Myofascial Release,Strumming Intensity/Depth Superficial Body Position Hooklying Comments avoiding bruises healing incision, moderate into quad and hamstring PT-OP-T Assessment and Plan Start: 09/04/24 15:14 Freq: Status: Active Protocol: Document 11/17/24 11:31 AB (Rec: 11/17/24 12:23 AB [id number]) Physical Therapy Assessment Goals gait Short Term Goal (STG) Pt will amb w/o AD w/o major gait deviations STG Duration 12/19 Traveling Accountant Goal (LTG) Pt will report able to amb 1 mile w/o R knee pain greater than 2/10 LTG Duration 01/19 ROM Impairment 15-71 Short Term Goal (STG) Pt will have improved R knee ROM to 8-100 deg ROM to allow improved gait. STG Duration 12/11 Traveling Accountant Goal (LTG) Pt will have improved R knee ROM to 0-120 deg ROM to allow improved gait. LTG Duration 01/19 strength Short Term Goal (STG) Pt will be able to do sit to stand w/RLE under her STG Duration 12/19 Traveling Accountant Goal (LTG) Pt will score at least 4+/5 on all BLE MMT to show improved strength to allow for greater ease with daily activities. LTG Duration 4/ mobility Skilled Nursing Goal (LTG) Pt will be able to reciprocate up/down stairs w/rail w/o pain in R knee. LTG Duration 4 Assessment Summary Assessment AROM right knee 98 deg post manual and exercise with Payton rating pain less than one ambulating out of session. Physical Therapy Plan Frequency and Duration Frequency of Treatment 2x/Week Duration of treatment (weeks) 10 Plan of Care Start Date 11/10/24 Plan of Care End Date 01/19/25 Next Visit Focus/Plan Next Note Type Treatment Note Next Visit Plan review exercises, gentle leg press, gait training, recumbant stepper
--- NOTE | 2024-11-20 08:19 | PT.OTN ---
Current Diagnoses Unilateral primary osteoarthritis, right knee (11/20/24) Presence of right artificial knee joint (11/20/24) Physical Therapy Treatment Note PT-OP-A Visit Information Start: 09/04/24 15:14 Freq: Status: Active Protocol: Document 11/20/24 07:27 [facility] (Rec: 11/20/24 08:19 [facility] [id number]) Out-Patient Physical Therapy Visit Information Visit Information Visit Type Treatment Note Visit Start Time 07:30 Visit Number 5 Number of SEMICONDUCTOR LAB TECHNICIAN Visits 0 PT-OP-B Current Condition Start: 09/04/24 15:14 Freq: Status: Active Protocol: Document 11/10/24 13:01 [facility] (Rec: 11/10/24 13:50 [facility] [id number]) Current Condition History of Current Condition Current Complaints planned RTKA History of Current Condition re eval 11/10- Pt had TKA R . Had one tip over w/ but he was able to catch her. NO complications w/ surgery. 11/14 sees surgeon. tried exercises like APs and quad set and LAQ. doing okay w/in/ out of house w/2 KAHLIL. She has been having to get up a lot to go to the bathroom. Uses commode occ at night. Using walker. Haven't showered. Waiting until appt w/doctor. enies calf pain IE:Pt reports doctor determined she is ready for TKA. she is schedule Nov 03. 2 KAHLIL (plan to put a rail up) and have cabinets to either side into [facility]. THere is a basement but doesn't need to go down there. Pt has walk in shower and grab bars ( so no room for chair). Pt has a regular height toilet and has a raised seat w/rails and other room has a comfort ht toilet w/a rail next to it. Has a FWW, 4WW and cane. Spouse at home supportive and will help w/socks, shoes etc and cooking and cleaning. Pt did PT with some progress but did have calf straina fter DC. Treatment Goals Patient/Caregiver Goals be able to walk miles and climb stairs and stand longer (kitchen activities and social activities) PT-OP-C Subjective Start: 09/04/24 15:14 Freq: Status: Active Protocol: Document 11/20/24 07:27 [facility] (Rec: 11/20/24 08:19 [facility] [id number]) OP-PT Subjective Patient Comments Patient Comments Takes 1/2 hydrocodone every 4 hours and still taking tylenol and ibuprofen. doctors appt when fine. There was a blister PT-OP-G Mobility & Gait Start: 09/04/24 15:14 Freq: Status: Active Protocol: Document 11/10/24 13:01 [facility] (Rec: 11/10/24 13:50 [facility] [id number]) OP Mobility Evaluation Bed Mobility Supine to and from Sit indep Transfers Sit to Stand uses FWW and UEs OP Gait Assessment Comments Gait Comments amb w/FWW w/slightly dec stance time RLE PT-OP-K Range of Motion Start: 09/04/24 15:14 Freq: Status: Active Protocol: Document 11/10/24 13:01 [facility] (Rec: 11/10/24 13:50 [facility] [id number]) Knee Goniometric Range of Motion Knee Left Flexion Active (degrees) 71 Extension Active (degrees) 15 PT-OP-M Strength Start: 09/04/24 15:14 Freq: Status: Active Protocol: Document 11/10/24 13:01 [facility] (Rec: 11/10/24 13:50 [facility] [id number]) Hip Strength Hip Manual Muscle Testing Right Flexion (L2) 3- Fair- External Rotation 3 Fair Internal Rotation 3 Fair Comments pain in back w/abd Left Flexion (L2) 4 Good External Rotation 4 Good Internal Rotation 4 Good Knee Strength Knee Manual Muscle Testing Right Flexion (S2) 3+ Fair+ Extension (L3) 3- Fair- Left Flexion (S2) 4 Good Extension (L3) 4 Good Ankle/Foot Strength Ankle and Foot Manual Muscle Testing Right Dorsiflexion (L4) 4 Good Plantarflexion (S1) 4 Good Left Dorsiflexion (L4) 5 Normal Plantarflexion (S1) 5 Normal Comments PF tested seated B PT-OP-Q Treatments Start: 09/04/24 15:14 Freq: Status: Active Protocol: Document 11/20/24 07:27 [facility] (Rec: 11/20/24 08:19 [facility] [id number]) Cardio Equipment Recumbent Stepper (Sci-Fit) Duration (Minutes) 5 Resistance 1 Seat Position 8 Gym Equipment Shuttle Recovery single leg Details 25# Reps/Time X15 B bilateral Details 37#, 50# (1 navy band ea) Reps/Time X15 ea wt Therapeutic Exercises Standing Exercises TKE Side bilateral Equipment Used orange band Reps/Minutes 15 ea stretch Standing Exercise Name 1. B MELVIN 2. HS on step SL Side bilateral Reps/Minutes 1 min ea march Side bilateral Equipment Used rail Reps/Minutes 12 Knee flex Side bilateral Equipment Used rail Reps/Minutes 12 ea Gait Training Gait Activity cane Comments 30ft x6 w/cues for sequence Manual Therapy Treatment Consent Patient gave verbal consent for manual Yes treatment Soft Tissue Mobilization R knee Body Location calf and HS Mobilization Type Myofascial Release,Rolling Intensity/Depth Superficial Comments avoiding bruises healing incision PT-OP-T Assessment and Plan Start: 09/04/24 15:14 Freq: Status: Active Protocol: Document 11/20/24 07:27 [facility] (Rec: 11/20/24 08:19 [facility] [id number]) Physical Therapy Assessment Goals gait Short Term Goal (STG) Pt will amb w/o AD w/o major gait deviations STG Duration 12/19 Practice Consultant Goal (LTG) Pt will report able to amb 1 mile w/o R knee pain greater than 2/10 LTG Duration 01/19 ROM Impairment 15-71 Short Term Goal (STG) Pt will have improved R knee ROM to 8-100 deg ROM to allow improved gait. STG Duration 12/11 Practice Consultant Goal (LTG) Pt will have improved R knee ROM to 0-120 deg ROM to allow improved gait. LTG Duration 01/19 strength Short Term Goal (STG) Pt will be able to do sit to stand w/RLE under her STG Duration 12/19 Custodial Goal (LTG) Pt will score at least 4+/5 on all BLE MMT to show improved strength to allow for greater ease with daily activities. LTG Duration 01/19 mobility Custodial Goal (LTG) Pt will be able to reciprocate up/down stairs w/rail w/o pain in R knee. LTG Duration 01/19 Assessment Summary Assessment cues TKE w/leg press exercises but is demonstrating much improved gait pattern today and did well with cane use w/ min cues. ROM today 7-99 after exercises. Physical Therapy Plan Frequency and Duration Frequency of Treatment 2x/Week Duration of treatment (weeks) 10 Plan of Care Start Date 11/10/24 Plan of Care End Date 01/19/25 Next Visit Focus/Plan Next Note Type Treatment Note Next Visit Plan leg press, stepper or bike when ready, advance gait as able , manual to improve ROM; exercises for ROM
--- NOTE | 2024-11-26 09:50 | PT.OTN ---
Current Diagnoses Unilateral primary osteoarthritis, right knee (11/26/24) Presence of right artificial knee joint (11/26/24) Physical Therapy Treatment Note PT-OP-A Visit Information Start: 09/04/24 15:14 Freq: Status: Active Protocol: Document 11/26/24 08:02 AB (Rec: 11/26/24 09:48 AB [id number]) Out-Patient Physical Therapy Visit Information Visit Information Visit Type Treatment Note Visit Start Time 09:03 Visit Stop Time 09:47 Visit Number 6 Number of HORSEBACK EXCAVATOR Visits 1 PT-OP-B Current Condition Start: 09/04/24 15:14 Freq: Status: Active Protocol: Document 11/10/24 13:01 [facility] (Rec: 11/10/24 13:50 [facility] [id number]) Current Condition History of Current Condition Current Complaints planned RTKA History of Current Condition re eval 11/10- Pt had TKA R . Had one tip over w/ but he was able to catch her. NO complications w/ surgery. 11/14 sees surgeon. tried exercises like APs and quad set and LAQ. doing okay w/in/ out of house w/2 KAHLIL. She has been having to get up a lot to go to the bathroom. Uses commode occ at night. Using walker. Haven't showered. Waiting until appt w/doctor. enies calf pain IE:Pt reports doctor determined she is ready for TKA. she is schedule Nov 03. 2 KAHLIL (plan to put a rail up) and have cabinets to either side into [facility]. THere is a basement but doesn't need to go down there. Pt has walk in shower and grab bars ( so no room for chair). Pt has a regular height toilet and has a raised seat w/rails and other room has a comfort ht toilet w/a rail next to it. Has a FWW, 4WW and cane. Spouse at home supportive and will help w/socks, shoes etc and cooking and cleaning. Pt did PT with some progress but did have calf straina fter DC. Treatment Goals Patient/Caregiver Goals be able to walk miles and climb stairs and stand longer (kitchen activities and social activities) PT-OP-C Subjective Start: 09/04/24 15:14 Freq: Status: Active Protocol: Document 11/26/24 08:02 AB (Rec: 11/26/24 09:48 AB [id number]) OP-PT Subjective Patient Comments Patient Comments Payton reports pain is 3/10 ambulating into session, comments she went to [facility] and has increased pain since. Patient reports having pins and needles intermittently, more at night, comments had this last night when trying to sleep. Lacking 7 deg ext to 109 deg flexion right knee AROM PT-OP-G Mobility & Gait Start: 09/04/24 15:14 Freq: Status: Active Protocol: Document 11/10/24 13:01 [facility] (Rec: 11/10/24 13:50 [facility] [id number]) OP Mobility Evaluation Bed Mobility Supine to and from Sit indep Transfers Sit to Stand uses FWW and UEs OP Gait Assessment Comments Gait Comments amb w/FWW w/slightly dec stance time RLE PT-OP-K Range of Motion Start: 09/04/24 15:14 Freq: Status: Active Protocol: Document 11/10/24 13:01 [facility] (Rec: 11/10/24 13:50 [facility] [id number]) Knee Goniometric Range of Motion Knee Left Flexion Active (degrees) 71 Extension Active (degrees) 15 PT-OP-M Strength Start: 09/04/24 15:14 Freq: Status: Active Protocol: Document 11/10/24 13:01 [facility] (Rec: 11/10/24 13:50 [facility] [id number]) Hip Strength Hip Manual Muscle Testing Right Flexion (L2) 3- Fair- External Rotation 3 Fair Internal Rotation 3 Fair Comments pain in back w/abd Left Flexion (L2) 4 Good External Rotation 4 Good Internal Rotation 4 Good Knee Strength Knee Manual Muscle Testing Right Flexion (S2) 3+ Fair+ Extension (L3) 3- Fair- Left Flexion (S2) 4 Good Extension (L3) 4 Good Ankle/Foot Strength Ankle and Foot Manual Muscle Testing Right Dorsiflexion (L4) 4 Good Plantarflexion (S1) 4 Good Left Dorsiflexion (L4) 5 Normal Plantarflexion (S1) 5 Normal Comments PF tested seated B PT-OP-Q Treatments Start: 09/04/24 15:14 Freq: Status: Active Protocol: Document 11/26/24 08:02 AB (Rec: 11/26/24 09:48 AB [id number]) Gym Equipment Shuttle Recovery single leg Details 25# Reps/Time X15 B , VC for full ext right as lacking 3 deg bilateral Details initiated with 50# X 3 then 37 # for set of 15 Reps/Time X15 Therapeutic Exercises Supine Exercises hamstring stretch Supine Exercise Name from hooklying holding LE with towel behind knee Side right Reps/Minutes one min X 2 Comments post manual SLR Side right Reps/Minutes X10 X2 Comments post manual and HS stretch heel slides Supine Exercise Name 1. on ball 2. AROM Reps/Minutes 1. x8 2. X 10 Comments post manual Sitting Exercises LAQ Side right Reps/Minutes X10 Comments Left LE supported due to feeling it on back without L LE support. Manual Therapy Treatment Consent Patient gave verbal consent for manual Yes treatment Soft Tissue Mobilization R knee Body Location HS, quad, med and lat knee Mobilization Type Cross-Friction,Myofascial Release,Rolling Intensity/Depth Moderate Body Position Hooklying Comments sup and mod PT-OP-T Assessment and Plan Start: 09/04/24 15:14 Freq: Status: Active Protocol: Document 11/26/24 08:02 AB (Rec: 11/26/24 09:48 AB [id number]) Physical Therapy Assessment Goals gait Short Term Goal (STG) Pt will amb w/o AD w/o major gait deviations STG Duration 12/19 Group Home Goal (LTG) Pt will report able to amb 1 mile w/o R knee pain greater than 2/10 LTG Duration 01/19 ROM Impairment 15-71 Short Term Goal (STG) Pt will have improved R knee ROM to 8-100 deg ROM to allow improved gait. STG Duration 12/11 Vehicle Return Associate Goal (LTG) Pt will have improved R knee ROM to 0-120 deg ROM to allow improved gait. LTG Duration 01/19 strength Short Term Goal (STG) Pt will be able to do sit to stand w/RLE under her STG Duration 12/19 Vehicle Return Associate Goal (LTG) Pt will score at least 4+/5 on all BLE MMT to show improved strength to allow for greater ease with daily activities. LTG Duration 01/19 mobility Group Home Goal (LTG) Pt will be able to reciprocate up/down stairs w/rail w/o pain in R knee. LTG Duration 01/19 Assessment Summary Assessment AROM right knee lacking 3 deg ext to 110 deg flexion post manual and exercise. Payton rates right knee pain10/24 end of session, ambulating with SPC. Patient with Right AI left PI. Physical Therapy Plan Frequency and Duration Frequency of Treatment 2x/Week Duration of treatment (weeks) 10 Plan of Care Start Date 11/10/24 Plan of Care End Date 01/19/25 Next Visit Focus/Plan Next Note Type Treatment Note Next Visit Plan leg press, stepper or bike when ready, advance gait as able , manual to improve ROM; exercises for ROM/ Assess right LE tingling, below knee or entire right LE?
--- NOTE | 2024-11-28 10:36 | PT.OTN ---
Current Diagnoses Unilateral primary osteoarthritis, right knee (11/28/24) Presence of right artificial knee joint (11/28/24) Physical Therapy Treatment Note PT-OP-A Visit Information Start: 09/04/24 15:14 Freq: Status: Active Protocol: Document 11/28/24 08:13 AB (Rec: 11/28/24 09:47 AB [id number]) Out-Patient Physical Therapy Visit Information Visit Information Visit Type Treatment Note Visit Start Time 09:03 Visit Stop Time 09:46 Visit Number 7 Number of CIRCULAR GANG SAW OPERATOR Visits 2 PT-OP-B Current Condition Start: 09/04/24 15:14 Freq: Status: Active Protocol: Document 11/10/24 13:01 [facility] (Rec: 11/10/24 13:50 [facility] [id number]) Current Condition History of Current Condition Current Complaints planned RTKA History of Current Condition re eval 11/10- Pt had TKA R . Had one tip over w/ but he was able to catch her. NO complications w/ surgery. 11/14 sees surgeon. tried exercises like APs and quad set and LAQ. doing okay w/in/ out of house w/2 KAHLIL. She has been having to get up a lot to go to the bathroom. Uses commode occ at night. Using walker. Haven't showered. Waiting until appt w/doctor. enies calf pain IE:Pt reports doctor determined she is ready for TKA. she is schedule Nov 03. 2 KAHLIL (plan to put a rail up) and have cabinets to either side into [facility]. THere is a basement but doesn't need to go down there. Pt has walk in shower and grab bars ( so no room for chair). Pt has a regular height toilet and has a raised seat w/rails and other room has a comfort ht toilet w/a rail next to it. Has a FWW, 4WW and cane. Spouse at home supportive and will help w/socks, shoes etc and cooking and cleaning. Pt did PT with some progress but did have calf straina fter DC. Treatment Goals Patient/Caregiver Goals be able to walk miles and climb stairs and stand longer (kitchen activities and social activities) PT-OP-C Subjective Start: 09/04/24 15:14 Freq: Status: Active Protocol: Document 11/28/24 08:13 AB (Rec: 11/28/24 09:47 AB [id number]) OP-PT Subjective Patient Comments Patient Comments Payton rates papin 3-5/10 from back into foot. Patient reports having a bad night, difficulty sleeping due to pain. Payton reports tingling is lateral above knee to ankle right LE. Lacking 7 deg extension to 102 deg flexion ROM right knee. PT-OP-G Mobility & Gait Start: 09/04/24 15:14 Freq: Status: Active Protocol: Document 11/10/24 13:01 [facility] (Rec: 11/10/24 13:50 [facility] [id number]) OP Mobility Evaluation Bed Mobility Supine to and from Sit indep Transfers Sit to Stand uses FWW and UEs OP Gait Assessment Comments Gait Comments amb w/FWW w/slightly dec stance time RLE PT-OP-K Range of Motion Start: 09/04/24 15:14 Freq: Status: Active Protocol: Document 11/10/24 13:01 [facility] (Rec: 11/10/24 13:50 [facility] [id number]) Knee Goniometric Range of Motion Knee Left Flexion Active (degrees) 71 Extension Active (degrees) 15 PT-OP-M Strength Start: 09/04/24 15:14 Freq: Status: Active Protocol: Document 11/10/24 13:01 [facility] (Rec: 11/10/24 13:50 [facility] [id number]) Hip Strength Hip Manual Muscle Testing Right Flexion (L2) 3- Fair- External Rotation 3 Fair Internal Rotation 3 Fair Comments pain in back w/abd Left Flexion (L2) 4 Good External Rotation 4 Good Internal Rotation 4 Good Knee Strength Knee Manual Muscle Testing Right Flexion (S2) 3+ Fair+ Extension (L3) 3- Fair- Left Flexion (S2) 4 Good Extension (L3) 4 Good Ankle/Foot Strength Ankle and Foot Manual Muscle Testing Right Dorsiflexion (L4) 4 Good Plantarflexion (S1) 4 Good Left Dorsiflexion (L4) 5 Normal Plantarflexion (S1) 5 Normal Comments PF tested seated B PT-OP-Q Treatments Start: 09/04/24 15:14 Freq: Status: Active Protocol: Document 11/28/24 08:13 AB (Rec: 11/28/24 09:47 AB [id number]) Gym Equipment Shuttle Recovery single leg Details 25# Reps/Time X15 each LE, end ROM ext limited by pinching sup pat bilateral Details 50 # Reps/Time X15 Therapeutic Exercises Supine Exercises hamstring stretch Supine Exercise Name from hooklying holding LE with towel behind knee Side right Reps/Minutes one min X 3 Comments reports back pain first trial, no back pain post MET quad set Side right Reps/Minutes 8 Comments towel roll under knee heel slides Supine Exercise Name 1. on ball 2. AROM Reps/Minutes 1. one min 2. X X10 then X3 Comments post manual Manual Therapy Treatment Soft Tissue Mobilization R knee Body Location HS, quad, med and lat knee Mobilization Type Cross-Friction,Myofascial Release,Rolling Intensity/Depth Moderate Body Position Hooklying Comments sup and mod Joint Mobilizations R patella Joint Inf, sup, med, lat, CW CCW Direction III Reps/Duration 2 X 5 three rounds Manual Techniques MET for R AI left PI and pubic shotgun Reps/Duration 6 X 6 seconds PT-OP-T Assessment and Plan Start: 09/04/24 15:14 Freq: Status: Active Protocol: Document 11/28/24 08:13 AB (Rec: 11/28/24 09:47 AB [id number]) Physical Therapy Assessment Goals gait Short Term Goal (STG) Pt will amb w/o AD w/o major gait deviations STG Duration 12/19 Intermediate Goal (LTG) Pt will report able to amb 1 mile w/o R knee pain greater than 2/10 LTG Duration 01/19 ROM Impairment 15-71 Short Term Goal (STG) Pt will have improved R knee ROM to 8-100 deg ROM to allow improved gait. STG Duration 12/11 Intermediate Goal (LTG) Pt will have improved R knee ROM to 0-120 deg ROM to allow improved gait. LTG Duration 01/19 strength Short Term Goal (STG) Pt will be able to do sit to stand w/RLE under her STG Duration 12/19 Clinical Program Consultant Goal (LTG) Pt will score at least 4+/5 on all BLE MMT to show improved strength to allow for greater ease with daily activities. LTG Duration 01/19 mobility Clinical Program Consultant Goal (LTG) Pt will be able to reciprocate up/down stairs w/rail w/o pain in R knee. LTG Duration 01/19 Assessment Summary Assessment AROM right knee lacking 5 to 117 deg flexion post manual and exercise. Pinching with end ROM right knee extension ( suprapatella) throughout this session, reports decreased post patellar mobs, but not eliminated.Patient rates pain. 12/22 knee 10/24 the rest of the right LE Physical Therapy Plan Frequency and Duration Frequency of Treatment 2x/Week Duration of treatment (weeks) 10 Plan of Care Start Date 11/10/24 Plan of Care End Date 01/19/25 Next Visit Focus/Plan Next Note Type Treatment Note Next Visit Plan leg press, stepper or bike when ready, advance gait as able , manual to improve ROM; exercises for ROM/ Assess red to previous session. Possibly inc STM supra patella and revisit pat mobs.
--- NOTE | 2024-12-01 12:25 | PT.OTN ---
Current Diagnoses Unilateral primary osteoarthritis, right knee (12/01/24) Presence of right artificial knee joint (12/01/24) Physical Therapy Treatment Note PT-OP-A Visit Information Start: 09/04/24 15:14 Freq: Status: Active Protocol: Document 12/01/24 10:49 [facility] (Rec: 12/01/24 11:50 [facility] [id number]) Out-Patient Physical Therapy Visit Information Visit Information Visit Type Treatment Note Visit Start Time 10:49 Visit Stop Time 11:29 Visit Number 8 Number of SURVEYING TEACHER Visits 0 PT-OP-B Current Condition Start: 09/04/24 15:14 Freq: Status: Active Protocol: Document 11/10/24 13:01 [facility] (Rec: 11/10/24 13:50 [facility] [id number]) Current Condition History of Current Condition Current Complaints planned RTKA History of Current Condition re eval 11/10- Pt had TKA R . Had one tip over w/ but he was able to catch her. NO complications w/ surgery. 11/14 sees surgeon. tried exercises like APs and quad set and LAQ. doing okay w/in/ out of house w/2 KAHLIL. She has been having to get up a lot to go to the bathroom. Uses commode occ at night. Using walker. Haven't showered. Waiting until appt w/doctor. enies calf pain IE:Pt reports doctor determined she is ready for TKA. she is schedule Nov 03. 2 KAHLIL (plan to put a rail up) and have cabinets to either side into [facility]. THere is a basement but doesn't need to go down there. Pt has walk in shower and grab bars ( so no room for chair). Pt has a regular height toilet and has a raised seat w/rails and other room has a comfort ht toilet w/a rail next to it. Has a FWW, 4WW and cane. Spouse at home supportive and will help w/socks, shoes etc and cooking and cleaning. Pt did PT with some progress but did have calf straina fter DC. Treatment Goals Patient/Caregiver Goals be able to walk miles and climb stairs and stand longer (kitchen activities and social activities) PT-OP-C Subjective Start: 09/04/24 15:14 Freq: Status: Active Protocol: Document 12/01/24 10:49 [facility] (Rec: 12/01/24 11:50 [facility] [id number]) OP-PT Subjective Patient Comments Patient Comments Pt reports is frustrated d/t ankle tightness and swelling. PT-OP-G Mobility & Gait Start: 09/04/24 15:14 Freq: Status: Active Protocol: Document 11/10/24 13:01 [facility] (Rec: 11/10/24 13:50 [facility] [id number]) OP Mobility Evaluation Bed Mobility Supine to and from Sit indep Transfers Sit to Stand uses FWW and UEs OP Gait Assessment Comments Gait Comments amb w/FWW w/slightly dec stance time RLE PT-OP-K Range of Motion Start: 09/04/24 15:14 Freq: Status: Active Protocol: Document 11/10/24 13:01 [facility] (Rec: 11/10/24 13:50 [facility] [id number]) Knee Goniometric Range of Motion Knee Left Flexion Active (degrees) 71 Extension Active (degrees) 15 PT-OP-M Strength Start: 09/04/24 15:14 Freq: Status: Active Protocol: Document 11/10/24 13:01 [facility] (Rec: 11/10/24 13:50 [facility] [id number]) Hip Strength Hip Manual Muscle Testing Right Flexion (L2) 3- Fair- External Rotation 3 Fair Internal Rotation 3 Fair Comments pain in back w/abd Left Flexion (L2) 4 Good External Rotation 4 Good Internal Rotation 4 Good Knee Strength Knee Manual Muscle Testing Right Flexion (S2) 3+ Fair+ Extension (L3) 3- Fair- Left Flexion (S2) 4 Good Extension (L3) 4 Good Ankle/Foot Strength Ankle and Foot Manual Muscle Testing Right Dorsiflexion (L4) 4 Good Plantarflexion (S1) 4 Good Left Dorsiflexion (L4) 5 Normal Plantarflexion (S1) 5 Normal Comments PF tested seated B PT-OP-Q Treatments Start: 09/04/24 15:14 Freq: Status: Active Protocol: Document 12/01/24 10:49 [facility] (Rec: 12/01/24 11:50 [facility] [id number]) Cardio Equipment Recumbent Stepper (Sci-Fit) Duration (Minutes) 6 Resistance 1 Seat Position 8-7 Gym Equipment Shuttle Recovery single leg Details 25# (navy) Reps/Time X15 each LE, cues TKE and control bilateral Details 62 # Reps/Time X15 Therapeutic Exercises Standing Exercises step up Side right Equipment Used 4 in w/1 rail Reps/Minutes 10 sit to stand Side bilateral Reps/Minutes 10 TKE Side right Equipment Used orange band Reps/Minutes 15 Comments cues hips staying under her stretch Standing Exercise Name 1. MELVIN DL 2. quad SL ea toe on chair, holding bar Side bilateral Reps/Minutes 30 sec ea Knee flex Side right Equipment Used rail Reps/Minutes 12 ea heel raises Side bilateral Equipment Used rail Reps/Minutes 20 Manual Therapy Treatment Consent Patient gave verbal consent for manual Yes treatment Soft Tissue Mobilization R knee Body Location HS Mobilization Type Cross-Friction,Myofascial Release,Rolling Intensity/Depth Moderate Body Position Hooklying Comments in SLr Position Joint Mobilizations R patella Joint Inf, sup, med, lat, CW CCW Direction III PT-OP-T Assessment and Plan Start: 09/04/24 15:14 Freq: Status: Active Protocol: Document 12/01/24 10:49 [facility] (Rec: 12/01/24 11:50 [facility] [id number]) Physical Therapy Assessment Goals gait Short Term Goal (STG) Pt will amb w/o AD w/o major gait deviations STG Duration 3 Sales Engineer Goal (LTG) Pt will report able to amb 1 mile w/o R knee pain greater than 2/10 LTG Duration 4 ROM Impairment 15-71 Short Term Goal (STG) Pt will have improved R knee ROM to 8-100 deg ROM to allow improved gait. 12/01-4-112 STG Duration achieved 12/01 Sales Engineer Goal (LTG) Pt will have improved R knee ROM to 0-120 deg ROM to allow improved gait. LTG Duration 4/ strength Short Term Goal (STG) Pt will be able to do sit to stand w/RLE under her STG Duration 3 Assisted Goal (LTG) Pt will score at least 4+/5 on all BLE MMT to show improved strength to allow for greater ease with daily activities. LTG Duration 4 mobility Assisted Goal (LTG) Pt will be able to reciprocate up/down stairs w/rail w/o pain in R knee. LTG Duration 4 Assessment Summary Assessment pt progressing very well with strength and control. Still has dec end range knee ext but was lacking a lot prior to surgery. She is advancing w/ quad engagemetn and functional actviity. ROM today 4-112 prior ot manual Physical Therapy Plan Frequency and Duration Frequency of Treatment 2x/Week Duration of treatment (weeks) 10 Plan of Care Start Date 11/10/24 Plan of Care End Date 01/19/25 Next Visit Focus/Plan Next Note Type Treatment Note Next Visit Plan leg press, stepper or bike when ready, advance gait as able , manual to improve ROM; exercises for ROM/ Assess red to previous session. Possibly inc STM supra patella and revisit pat ravindra.
--- NOTE | 2024-12-03 10:36 | PT.OTN ---
Current Diagnoses Unilateral primary osteoarthritis, right knee (12/03/24) Presence of right artificial knee joint (12/03/24) Physical Therapy Treatment Note PT-OP-A Visit Information Start: 09/04/24 15:14 Freq: Status: Active Protocol: Document 12/03/24 09:54 [facility] (Rec: 12/03/24 10:36 [facility] [id number]) Out-Patient Physical Therapy Visit Information Visit Information Visit Type Progress Note Visit Start Time 09:48 Visit Stop Time 10:28 Visit Number 9 Number of SAFETY LEADER Visits 0 PT-OP-B Current Condition Start: 09/04/24 15:14 Freq: Status: Active Protocol: Document 11/10/24 13:01 [facility] (Rec: 11/10/24 13:50 [facility] [id number]) Current Condition History of Current Condition Current Complaints planned RTKA History of Current Condition re eval 11/10- Pt had TKA R . Had one tip over w/ but he was able to catch her. NO complications w/ surgery. 11/14 sees surgeon. tried exercises like APs and quad set and LAQ. doing okay w/in/ out of house w/2 KAHLIL. She has been having to get up a lot to go to the bathroom. Uses commode occ at night. Using walker. Haven't showered. Waiting until appt w/doctor. enies calf pain IE:Pt reports doctor determined she is ready for TKA. she is schedule Nov 03. 2 KAHLIL (plan to put a rail up) and have cabinets to either side into [facility]. THere is a basement but doesn't need to go down there. Pt has walk in shower and grab bars ( so no room for chair). Pt has a regular height toilet and has a raised seat w/rails and other room has a comfort ht toilet w/a rail next to it. Has a FWW, 4WW and cane. Spouse at home supportive and will help w/socks, shoes etc and cooking and cleaning. Pt did PT with some progress but did have calf straina fter DC. Treatment Goals Patient/Caregiver Goals be able to walk miles and climb stairs and stand longer (kitchen activities and social activities) PT-OP-C Subjective Start: 09/04/24 15:14 Freq: Status: Active Protocol: Document 12/03/24 09:54 [facility] (Rec: 12/03/24 10:36 [facility] [id number]) OP-PT Subjective Patient Comments Patient Comments Pt reports knee clicks some. Ordered thigh high stocking. Still has some tingling by ankle. PT-OP-G Mobility & Gait Start: 09/04/24 15:14 Freq: Status: Active Protocol: Document 11/10/24 13:01 [facility] (Rec: 11/10/24 13:50 [facility] [id number]) OP Mobility Evaluation Bed Mobility Supine to and from Sit indep Transfers Sit to Stand uses FWW and UEs OP Gait Assessment Comments Gait Comments amb w/FWW w/slightly dec stance time RLE PT-OP-K Range of Motion Start: 09/04/24 15:14 Freq: Status: Active Protocol: Document 12/03/24 09:54 [facility] (Rec: 12/03/24 10:36 [facility] [id number]) Knee Goniometric Range of Motion Knee Right Flexion Passive (degrees) 106 Extension Active (degrees) 5 PT-OP-M Strength Start: 09/04/24 15:14 Freq: Status: Active Protocol: Document 12/03/24 09:54 [facility] (Rec: 12/03/24 10:36 [facility] [id number]) Hip Strength Hip Manual Muscle Testing Right Flexion (L2) 3+ Fair+ Abduction 4 Good External Rotation 4- Good- Internal Rotation 4- Good- Left Flexion (L2) 4 Good Abduction 4 Good External Rotation 4 Good Internal Rotation 4 Good Knee Strength Knee Manual Muscle Testing Right Flexion (S2) 4- Good- Extension (L3) 4- Good- Left Flexion (S2) 4+ Good+ Extension (L3) 4 Good Ankle/Foot Strength Ankle and Foot Manual Muscle Testing Right Dorsiflexion (L4) 4+ Good+ Plantarflexion (S1) 4+ Good+ Left Dorsiflexion (L4) 5 Normal Plantarflexion (S1) 5 Normal Comments PF tested seated B PT-OP-Q Treatments Start: 09/04/24 15:14 Freq: Status: Active Protocol: Document 12/03/24 09:54 [facility] (Rec: 12/03/24 10:36 [facility] [id number]) Gym Equipment Shuttle Recovery single leg Details 37# (navy) Reps/Time X15 each LE, cues TKE and control bilateral Details 62 # Reps/Time X15 Therapeutic Exercises Sitting Exercises LAQ Side right Equipment Used 1# Reps/Minutes X10 Standing Exercises step up Side right Equipment Used 4 in w/1 rail Reps/Minutes 10 sit to stand Side bilateral Reps/Minutes 10 Comments no hands TKE Side right Equipment Used orange band Reps/Minutes 15 Comments cues hips staying under her stretch Standing Exercise Name 1. MELVIN DL 2. quad SL ea toe on chair, holding bar Side bilateral Reps/Minutes 1 min ea Knee flex Side right Resistance 2# ankle wt Equipment Used rail Reps/Minutes 2x10 Other Exercises isometrics Other Exercise Name B LE MMT Side bilateral Manual Therapy Treatment Consent Patient gave verbal consent for manual Yes treatment Soft Tissue Mobilization scar Body Location R superior aspect Mobilization Type Myofascial Release Comments gloves on avoiding scab R knee Body Location quad Mobilization Type Myofascial Release,Rolling Intensity/Depth Moderate Body Position Hooklying PT-OP-T Assessment and Plan Start: 09/04/24 15:14 Freq: Status: Active Protocol: Document 12/03/24 09:54 [facility] (Rec: 12/03/24 10:36 [facility] [id number]) Physical Therapy Assessment Goals gait Short Term Goal (STG) Pt will amb w/o AD w/o major gait deviations STG Duration achieved 12/03 Residential Goal (LTG) Pt will report able to amb 1 mile w/o R knee pain greater than 2/10 LTG Duration 01/19 ROM Impairment 15-71 Short Term Goal (STG) Pt will have improved R knee ROM to 8-100 deg ROM to allow improved gait. 12/01--112 STG Duration achieved 12/01 Residential Goal (LTG) Pt will have improved R knee ROM to 0-120 deg ROM to allow improved gait. LTG Duration 4 strength Short Term Goal (STG) Pt will be able to do sit to stand w/RLE under her STG Duration achieved 12/03 Residential Goal (LTG) Pt will score at least 4+/5 on all BLE MMT to show improved strength to allow for greater ease with daily activities. 12/03-improving LTG Duration 4 mobility Residential Goal (LTG) Pt will be able to reciprocate up/down stairs w/rail w/o pain in R knee. LTG Duration 4/7 Assessment Summary Assessment Pt making great progress w/PT with much improved strength and ROM and is able to now amb w/o AD. Cont progressing ROM and strength w/PT to more normal mobility. ROM 4-106 and improved to 118 flex after manual Physical Therapy Plan Frequency and Duration Frequency of Treatment 2x/Week Duration of treatment (weeks) 10 Plan of Care Start Date 11/10/24 Plan of Care End Date 01/19/25 Next Visit Focus/Plan Next Note Type Treatment Note Next Visit Plan cont to advance strength RLE, change to 1x/week d/t high copay and pt progresing well. manual to improve mobility and dec pain
--- NOTE | 2024-12-03 11:42 | PT.OPPN ---
Current Diagnoses Unilateral primary osteoarthritis, right knee (12/11/24) Presence of right artificial knee joint (12/11/24) Physical Therapy Progress Note PT-OP-A Visit Information Start: 09/04/24 15:14 Freq: Status: Active Protocol: Document 12/11/24 09:42 [facility] (Rec: 12/03/24 10:36 [facility] [id number]) Out-Patient Physical Therapy Visit Information Visit Information Visit Type Progress Note Visit Start Time 09:48 Visit Stop Time 10:28 Visit Number 9 Number of GAS TURBINE ASSEMBLER Visits 0 PT-OP-B Current Condition Start: 09/04/24 15:14 Freq: Status: Active Protocol: Document 11/10/24 13:01 [facility] (Rec: 11/10/24 13:50 [facility] [id number]) Current Condition History of Current Condition Current Complaints planned RTKA History of Current Condition re eval 11/10- Pt had TKA R . Had one tip over w/ but he was able to catch her. NO complications w/ surgery. 11/14 sees surgeon. tried exercises like APs and quad set and LAQ. doing okay w/in/ out of house w/2 KAHLIL. She has been having to get up a lot to go to the bathroom. Uses commode occ at night. Using walker. Haven't showered. Waiting until appt w/doctor. enies calf pain IE:Pt reports doctor determined she is ready for TKA. she is schedule Nov 03. 2 KAHLIL (plan to put a rail up) and have cabinets to either side into [facility]. THere is a basement but doesn't need to go down there. Pt has walk in shower and grab bars ( so no room for chair). Pt has a regular height toilet and has a raised seat w/rails and other room has a comfort ht toilet w/a rail next to it. Has a FWW, 4WW and cane. Spouse at home supportive and will help w/socks, shoes etc and cooking and cleaning. Pt did PT with some progress but did have calf straina fter DC. Treatment Goals Patient/Caregiver Goals be able to walk miles and climb stairs and stand longer (kitchen activities and social activities) PT-OP-C Subjective Start: 09/04/24 15:14 Freq: Status: Active Protocol: Document 12/11/24 09:42 [facility] (Rec: 12/03/24 10:36 [facility] [id number]) OP-PT Subjective Patient Comments Patient Comments Pt reports knee clicks some. Ordered thigh high stocking. Still has some tingling by ankle. PT-OP-G Mobility & Gait Start: 09/04/24 15:14 Freq: Status: Active Protocol: Document 11/10/24 13:01 [facility] (Rec: 11/10/24 13:50 [facility] [id number]) OP Mobility Evaluation Bed Mobility Supine to and from Sit indep Transfers Sit to Stand uses FWW and UEs OP Gait Assessment Comments Gait Comments amb w/FWW w/slightly dec stance time RLE PT-OP-K Range of Motion Start: 09/04/24 15:14 Freq: Status: Active Protocol: Document 12/11/24 09:42 [facility] (Rec: 12/03/24 10:36 [facility] [id number]) Knee Goniometric Range of Motion Knee Measured in Degrees Right Flexion Passive (degrees) 106 Extension Active (degrees) 5 PT-OP-M Strength Start: 09/04/24 15:14 Freq: Status: Active Protocol: Document 12/11/24 09:42 [facility] (Rec: 12/03/24 10:36 [facility] [id number]) Hip Strength Hip Manual Muscle Testing Right Flexion (L2) 3+ Fair+ Abduction 4 Good External Rotation 4- Good- Internal Rotation 4- Good- Left Flexion (L2) 4 Good Abduction 4 Good External Rotation 4 Good Internal Rotation 4 Good Knee Strength Knee Manual Muscle Testing Right Flexion (S2) 4- Good- Extension (L3) 4- Good- Left Flexion (S2) 4+ Good+ Extension (L3) 4 Good Ankle/Foot Strength Ankle and Foot Manual Muscle Testing Right Dorsiflexion (L4) 4+ Good+ Plantarflexion (S1) 4+ Good+ Left Dorsiflexion (L4) 5 Normal Plantarflexion (S1) 5 Normal Comments PF tested seated B PT-OP-T Assessment and Plan Start: 09/04/24 15:14 Freq: Status: Active Protocol: Document 12/11/24 09:42 [facility] (Rec: 12/03/24 10:36 [facility] [id number]) Physical Therapy Assessment Goals gait Short Term Goal (STG) Pt will amb w/o AD w/o major gait deviations STG Duration achieved 12/03 Half-Way Goal (LTG) Pt will report able to amb 1 mile w/o R knee pain greater than 2/10 LTG Duration 01/19 ROM Impairment 15-71 Short Term Goal (STG) Pt will have improved R knee ROM to 8-100 deg ROM to allow improved gait. 12/01-4-112 STG Duration achieved 12/01 Half-Way Goal (LTG) Pt will have improved R knee ROM to 0-120 deg ROM to allow improved gait. LTG Duration 01/19 strength Short Term Goal (STG) Pt will be able to do sit to stand w/RLE under her STG Duration achieved 12/03 Satellite Communications Operator Goal (LTG) Pt will score at least 4+/5 on all BLE MMT to show improved strength to allow for greater ease with daily activities. 12/03-improving LTG Duration 01/19 mobility Half-Way Goal (LTG) Pt will be able to reciprocate up/down stairs w/rail w/o pain in R knee. LTG Duration 01/19 Assessment Summary Assessment Pt making great progress w/PT with much improved strength and ROM and is able to now amb w/o AD. Cont progressing ROM and strength w/PT to more normal mobility. ROM 4-106 and improved to 118 flex after manual Physical Therapy Plan Frequency and Duration Frequency of Treatment 2x/Week Duration of treatment (weeks) 10 Plan of Care Start Date 11/10/24 Plan of Care End Date 01/19/25 Next Visit Focus/Plan Next Note Type Treatment Note Next Visit Plan cont to advance strength RLE, change to 1x/week d/t high copay and pt progresing well. manual to improve mobility and dec pain
--- NOTE | 2024-12-08 13:51 | PT.OTN ---
Current Diagnoses Unilateral primary osteoarthritis, right knee (12/08/24) Presence of right artificial knee joint (12/08/24) Physical Therapy Treatment Note PT-OP-A Visit Information Start: 09/04/24 15:14 Freq: Status: Active Protocol: Document 12/08/24 13:00 [facility] (Rec: 12/08/24 13:51 [facility] [id number]) Out-Patient Physical Therapy Visit Information Visit Information Visit Type Treatment Note Visit Start Time 13:02 Visit Stop Time 01:48 Visit Number 10 Number of COLLAR PADDER BLINDSTITCH Visits 1 PT-OP-B Current Condition Start: 09/04/24 15:14 Freq: Status: Active Protocol: Document 11/10/24 13:01 [facility] (Rec: 11/10/24 13:50 [facility] [id number]) Current Condition History of Current Condition Current Complaints planned RTKA History of Current Condition re eval 11/10- Pt had TKA R . Had one tip over w/ but he was able to catch her. NO complications w/ surgery. 11/14 sees surgeon. tried exercises like APs and quad set and LAQ. doing okay w/in/ out of house w/2 KAHLIL. She has been having to get up a lot to go to the bathroom. Uses commode occ at night. Using walker. Haven't showered. Waiting until appt w/doctor. enies calf pain IE:Pt reports doctor determined she is ready for TKA. she is schedule Nov 03. 2 KAHLIL (plan to put a rail up) and have cabinets to either side into [facility]. THere is a basement but doesn't need to go down there. Pt has walk in shower and grab bars ( so no room for chair). Pt has a regular height toilet and has a raised seat w/rails and other room has a comfort ht toilet w/a rail next to it. Has a FWW, 4WW and cane. Spouse at home supportive and will help w/socks, shoes etc and cooking and cleaning. Pt did PT with some progress but did have calf straina fter DC. Treatment Goals Patient/Caregiver Goals be able to walk miles and climb stairs and stand longer (kitchen activities and social activities) PT-OP-C Subjective Start: 09/04/24 15:14 Freq: Status: Active Protocol: Document 12/08/24 13:00 [facility] (Rec: 12/08/24 13:51 [facility] [id number]) OP-PT Subjective Patient Comments Patient Comments Patient reports tingling is better. Payton reports she went for a walk yesterday 8-9 min walk on concrete was limited by compression socks on scar is uncomfortable. Patient reports entire foot was aching yesterday, and was better today.Lacking 5 deg ext to 119 deg flexion AROM start of session PT-OP-G Mobility & Gait Start: 09/04/24 15:14 Freq: Status: Active Protocol: Document 11/10/24 13:01 [facility] (Rec: 11/10/24 13:50 [facility] [id number]) OP Mobility Evaluation Bed Mobility Supine to and from Sit indep Transfers Sit to Stand uses FWW and UEs OP Gait Assessment Comments Gait Comments amb w/FWW w/slightly dec stance time RLE PT-OP-K Range of Motion Start: 09/04/24 15:14 Freq: Status: Active Protocol: Document 12/03/24 09:54 [facility] (Rec: 12/03/24 10:36 [facility] [id number]) Knee Goniometric Range of Motion Knee Right Flexion Passive (degrees) 106 Extension Active (degrees) 5 PT-OP-M Strength Start: 09/04/24 15:14 Freq: Status: Active Protocol: Document 12/03/24 09:54 [facility] (Rec: 12/03/24 10:36 [facility] [id number]) Hip Strength Hip Manual Muscle Testing Right Flexion (L2) 3+ Fair+ Abduction 4 Good External Rotation 4- Good- Internal Rotation 4- Good- Left Flexion (L2) 4 Good Abduction 4 Good External Rotation 4 Good Internal Rotation 4 Good Knee Strength Knee Manual Muscle Testing Right Flexion (S2) 4- Good- Extension (L3) 4- Good- Left Flexion (S2) 4+ Good+ Extension (L3) 4 Good Ankle/Foot Strength Ankle and Foot Manual Muscle Testing Right Dorsiflexion (L4) 4+ Good+ Plantarflexion (S1) 4+ Good+ Left Dorsiflexion (L4) 5 Normal Plantarflexion (S1) 5 Normal Comments PF tested seated B PT-OP-Q Treatments Start: 09/04/24 15:14 Freq: Status: Active Protocol: Document 12/08/24 13:00 [facility] (Rec: 12/08/24 13:51 [facility] [id number]) Gym Equipment Shuttle Recovery single leg Details 37# (navy) Reps/Time X15 each LE, cues TKE and control Therapeutic Exercises Supine Exercises hamstring stretch Supine Exercise Name from hooklying holding LE with towel behind knee Side right Reps/Minutes one min X 3 Comments ankle pumps on 3rd rep SLR Side right Reps/Minutes X5 Comments post manual and HS stretch heel slides Supine Exercise Name 1. on ball 2. AROM Reps/Minutes 1. one min 2. X X10 then X3 Comments post manual Sitting Exercises seated hip abd with band Side bilateral Resistance [place] band Reps/Minutes one min X 1 Comments Verbal cues Standing Exercises sit to stand Side bilateral Reps/Minutes 10 Comments no hands Manual Therapy Treatment Consent Patient gave verbal consent for manual Yes treatment Soft Tissue Mobilization scar Body Location R superior aspect. tibial area from robot also Mobilization Type Instrument Assisted,Myofascial Release Comments small and medium suction cup R knee Body Location quad and HS Mobilization Type Cross-Friction,Myofascial Release,Rolling Intensity/Depth Moderate Body Position Hooklying Manual Techniques MET for R AI left PI and pubic shotgun Reps/Duration 6 X 6 seconds PT-OP-T Assessment and Plan Start: 09/04/24 15:14 Freq: Status: Active Protocol: Document 12/08/24 13:00 [facility] (Rec: 12/08/24 13:51 [facility] [id number]) Physical Therapy Assessment Goals gait Short Term Goal (STG) Pt will amb w/o AD w/o major gait deviations STG Duration achieved 12/03 It Application Support Analyst Goal (LTG) Pt will report able to amb 1 mile w/o R knee pain greater than 2/10 LTG Duration 4 ROM Impairment 15-71 Short Term Goal (STG) Pt will have improved R knee ROM to 8-100 deg ROM to allow improved gait. 12/01- STG Duration achieved 12/01 Group Home Goal (LTG) Pt will have improved R knee ROM to 0-120 deg ROM to allow improved gait. LTG Duration 4/7 strength Short Term Goal (STG) Pt will be able to do sit to stand w/RLE under her STG Duration achieved 12/03 It Application Support Analyst Goal (LTG) Pt will score at least 4+/5 on all BLE MMT to show improved strength to allow for greater ease with daily activities. 12/03-improving LTG Duration 01/19 mobility It Application Support Analyst Goal (LTG) Pt will be able to reciprocate up/down stairs w/rail w/o pain in R knee. LTG Duration 01/19 Assessment Summary Assessment lacking 4 deg ext to 121 deg flexion AROM right knee post manual and exercise. Payton rates right knee pain 10/24 end of sesion. Physical Therapy Plan Frequency and Duration Frequency of Treatment 2x/Week Duration of treatment (weeks) 10 Plan of Care Start Date 11/10/24 Plan of Care End Date 01/19/25 Next Visit Focus/Plan Next Note Type Treatment Note Next Visit Plan cont to advance strength RLE, change to 1x/week d/t high copay and pt progresing well. manual to improve mobility and dec pain
--- NOTE | 2024-12-11 10:45 | PT.OTN ---
Current Diagnoses Unilateral primary osteoarthritis, right knee (12/11/24) Presence of right artificial knee joint (12/11/24) Physical Therapy Treatment Note PT-OP-A Visit Information Start: 09/04/24 15:14 Freq: Status: Active Protocol: Document 12/11/24 08:13 AB (Rec: 12/11/24 10:45 AB [id number]) Out-Patient Physical Therapy Visit Information Visit Information Visit Type Treatment Note Visit Start Time 09:04 Visit Stop Time 09:47 Visit Number 11 Number of LINE CONTROLLER Visits 2 PT-OP-B Current Condition Start: 09/04/24 15:14 Freq: Status: Active Protocol: Document 11/10/24 13:01 [facility] (Rec: 11/10/24 13:50 [facility] [id number]) Current Condition History of Current Condition Current Complaints planned RTKA History of Current Condition re eval 11/10- Pt had TKA R . Had one tip over w/ but he was able to catch her. NO complications w/ surgery. 11/14 sees surgeon. tried exercises like APs and quad set and LAQ. doing okay w/in/ out of house w/2 KAHLIL. She has been having to get up a lot to go to the bathroom. Uses commode occ at night. Using walker. Haven't showered. Waiting until appt w/doctor. enies calf pain IE:Pt reports doctor determined she is ready for TKA. she is schedule Nov 03. 2 KAHLIL (plan to put a rail up) and have cabinets to either side into [facility]. THere is a basement but doesn't need to go down there. Pt has walk in shower and grab bars ( so no room for chair). Pt has a regular height toilet and has a raised seat w/rails and other room has a comfort ht toilet w/a rail next to it. Has a FWW, 4WW and cane. Spouse at home supportive and will help w/socks, shoes etc and cooking and cleaning. Pt did PT with some progress but did have calf straina fter DC. Treatment Goals Patient/Caregiver Goals be able to walk miles and climb stairs and stand longer (kitchen activities and social activities) PT-OP-C Subjective Start: 09/04/24 15:14 Freq: Status: Active Protocol: Document 12/11/24 08:13 AB (Rec: 12/11/24 10:45 AB [id number]) OP-PT Subjective Patient Comments Patient Comments Patient reports she is better today, comments the cupping was a killer next time, but is OK to continue cupping today. Payton rates right knee pain start of session, comments she was diligent yesterday with HEP and walked around the yard. AROM right knee lacking 5 deg ext to 116 deg flexon start of session. PT-OP-G Mobility & Gait Start: 09/04/24 15:14 Freq: Status: Active Protocol: Document 11/10/24 13:01 [facility] (Rec: 11/10/24 13:50 [facility] [id number]) OP Mobility Evaluation Bed Mobility Supine to and from Sit indep Transfers Sit to Stand uses FWW and UEs OP Gait Assessment Comments Gait Comments amb w/FWW w/slightly dec stance time RLE PT-OP-K Range of Motion Start: 09/04/24 15:14 Freq: Status: Active Protocol: Document 12/03/24 09:42 [facility] (Rec: 12/03/24 10:36 [facility] [id number]) Knee Goniometric Range of Motion Knee Right Flexion Passive (degrees) 106 Extension Active (degrees) 5 PT-OP-M Strength Start: 09/04/24 15:14 Freq: Status: Active Protocol: Document 12/03/24 09:42 [facility] (Rec: 12/03/24 10:36 [facility] [id number]) Hip Strength Hip Manual Muscle Testing Right Flexion (L2) 3+ Fair+ Abduction 4 Good External Rotation 4- Good- Internal Rotation 4- Good- Left Flexion (L2) 4 Good Abduction 4 Good External Rotation 4 Good Internal Rotation 4 Good Knee Strength Knee Manual Muscle Testing Right Flexion (S2) 4- Good- Extension (L3) 4- Good- Left Flexion (S2) 4+ Good+ Extension (L3) 4 Good Ankle/Foot Strength Ankle and Foot Manual Muscle Testing Right Dorsiflexion (L4) 4+ Good+ Plantarflexion (S1) 4+ Good+ Left Dorsiflexion (L4) 5 Normal Plantarflexion (S1) 5 Normal Comments PF tested seated B PT-OP-Q Treatments Start: 09/04/24 15:14 Freq: Status: Active Protocol: Document 12/11/24 08:13 AB (Rec: 12/11/24 10:45 AB [id number]) Gym Equipment Shuttle Recovery single leg Details 37# ([employer]) Reps/Time X11 each LE, cues TKE and control Therapeutic Exercises Supine Exercises hamstring stretch Supine Exercise Name from hooklying holding LE with towel behind knee Side right Reps/Minutes one min X 2 Comments ankle pumps on 3rd rep heel slides Supine Exercise Name 1.AROM 2.with level 2 latex free resistance Reps/Minutes 1 X 10 Standing Exercises step up Side right Equipment Used 4 in w/1 rail Reps/Minutes X18 Comments initiated 6 inch step with discomfort X 1 TKE Side right Equipment Used orange band Reps/Minutes 15 Comments cues hips staying under her Manual Therapy Treatment Consent Patient gave verbal consent for manual Yes treatment Soft Tissue Mobilization scar Body Location R superior aspect. tibial area from robot also Mobilization Type Instrument Assisted,Myofascial Release Comments small and medium suction cup R knee Body Location quad and HS Mobilization Type Cross-Friction,Myofascial Release,Rolling Intensity/Depth Moderate Body Position Hooklying Joint Mobilizations R patella Joint Inf, sup, med, lat, CW CCW Direction III PT-OP-T Assessment and Plan Start: 09/04/24 15:14 Freq: Status: Active Protocol: Document 12/11/24 08:13 AB (Rec: 12/11/24 10:45 AB [id number]) Physical Therapy Assessment Goals gait Short Term Goal (STG) Pt will amb w/o AD w/o major gait deviations STG Duration achieved 12/03 Packing Inspector Goal (LTG) Pt will report able to amb 1 mile w/o R knee pain greater than 2/10 LTG Duration 4/7 ROM Impairment 15-71 Short Term Goal (STG) Pt will have improved R knee ROM to 8-100 deg ROM to allow improved gait. 12/01-4-112 STG Duration achieved 12/01 Jail Goal (LTG) Pt will have improved R knee ROM to 0-120 deg ROM to allow improved gait. LTG Duration 4/7 strength Short Term Goal (STG) Pt will be able to do sit to stand w/RLE under her STG Duration achieved 12/03 Packing Inspector Goal (LTG) Pt will score at least 4+/5 on all BLE MMT to show improved strength to allow for greater ease with daily activities. 12/03-improving LTG Duration 01/19 mobility Packing Inspector Goal (LTG) Pt will be able to reciprocate up/down stairs w/rail w/o pain in R knee. LTG Duration 01/19 Assessment Summary Assessment lacking 2 deg 120 AROM right knee end of session, rating pain 1.5/10 end of session. Physical Therapy Plan Frequency and Duration Frequency of Treatment 2x/Week Duration of treatment (weeks) 10 Plan of Care Start Date 11/10/24 Plan of Care End Date 01/19/25 Next Visit Focus/Plan Next Note Type Treatment Note Next Visit Plan cont to advance strength RLE, change to 1x/week d/t high copay and pt progresing well. manual to improve mobility and dec pain
--- NOTE | 2024-12-17 13:14 | PT.OTN ---
Current Diagnoses Unilateral primary osteoarthritis, right knee (12/17/24) Presence of right artificial knee joint (12/17/24) Physical Therapy Treatment Note PT-OP-A Visit Information Start: 09/04/24 15:14 Freq: Status: Active Protocol: Document 12/17/24 13:06 [facility] (Rec: 12/17/24 13:14 [facility] [id number]) Out-Patient Physical Therapy Visit Information Visit Information Visit Type Treatment Note Visit Start Time 11:38 Visit Stop Time 12:18 Visit Number 12 Number of INSPECTOR MACHINED PARTS Visits 0 PT-OP-B Current Condition Start: 09/04/24 15:14 Freq: Status: Active Protocol: Document 11/10/24 13:01 [facility] (Rec: 11/10/24 13:50 [facility] [id number]) Current Condition History of Current Condition Current Complaints planned RTKA History of Current Condition re eval 11/10- Pt had TKA R . Had one tip over w/ but he was able to catch her. NO complications w/ surgery. 11/14 sees surgeon. tried exercises like APs and quad set and LAQ. doing okay w/in/ out of house w/2 KAHLIL. She has been having to get up a lot to go to the bathroom. Uses commode occ at night. Using walker. Haven't showered. Waiting until appt w/doctor. enies calf pain IE:Pt reports doctor determined she is ready for TKA. she is schedule Nov 03. 2 KAHLIL (plan to put a rail up) and have cabinets to either side into [facility]. THere is a basement but doesn't need to go down there. Pt has walk in shower and grab bars ( so no room for chair). Pt has a regular height toilet and has a raised seat w/rails and other room has a comfort ht toilet w/a rail next to it. Has a FWW, 4WW and cane. Spouse at home supportive and will help w/socks, shoes etc and cooking and cleaning. Pt did PT with some progress but did have calf straina fter DC. Treatment Goals Patient/Caregiver Goals be able to walk miles and climb stairs and stand longer (kitchen activities and social activities) PT-OP-C Subjective Start: 09/04/24 15:14 Freq: Status: Active Protocol: Document 12/17/24 13:06 [facility] (Rec: 12/17/24 13:14 [facility] [id number]) OP-PT Subjective Patient Comments Patient Comments pt reports she saw the doctor this morning and doctor was pleased with progress. follows up in 1 month PT-OP-G Mobility & Gait Start: 09/04/24 15:14 Freq: Status: Active Protocol: Document 11/10/24 13:01 [facility] (Rec: 11/10/24 13:50 [facility] [id number]) OP Mobility Evaluation Bed Mobility Supine to and from Sit indep Transfers Sit to Stand uses FWW and UEs OP Gait Assessment Comments Gait Comments amb w/FWW w/slightly dec stance time RLE PT-OP-K Range of Motion Start: 09/04/24 15:14 Freq: Status: Active Protocol: Document 12/03/24 09:42 [facility] (Rec: 12/03/24 10:36 [facility] [id number]) Knee Goniometric Range of Motion Knee Right Flexion Passive (degrees) 106 Extension Active (degrees) 5 PT-OP-M Strength Start: 09/04/24 15:14 Freq: Status: Active Protocol: Document 12/03/24 09:42 [facility] (Rec: 12/03/24 10:36 [facility] [id number]) Hip Strength Hip Manual Muscle Testing Right Flexion (L2) 3+ Fair+ Abduction 4 Good External Rotation 4- Good- Internal Rotation 4- Good- Left Flexion (L2) 4 Good Abduction 4 Good External Rotation 4 Good Internal Rotation 4 Good Knee Strength Knee Manual Muscle Testing Right Flexion (S2) 4- Good- Extension (L3) 4- Good- Left Flexion (S2) 4+ Good+ Extension (L3) 4 Good Ankle/Foot Strength Ankle and Foot Manual Muscle Testing Right Dorsiflexion (L4) 4+ Good+ Plantarflexion (S1) 4+ Good+ Left Dorsiflexion (L4) 5 Normal Plantarflexion (S1) 5 Normal Comments PF tested seated B PT-OP-Q Treatments Start: 09/04/24 15:14 Freq: Status: Active Protocol: Document 12/17/24 13:06 [facility] (Rec: 12/17/24 13:14 [facility] [id number]) Therapeutic Activity Therapeutic Activity in/out of bath Reps/Minutes 10 min Comments use of low high/low tables to simulate get in/out of bath w/ use of stool as part way point x3 SBA Manual Therapy Treatment Consent Patient gave verbal consent for manual Yes treatment Soft Tissue Mobilization scar Mobilization Type Myofascial Release Comments w/flex/ext R knee Body Location HS and calf and ITB Mobilization Type Cross-Friction,Myofascial Release,Rolling Intensity/Depth Moderate Body Position Hooklying Comments also MFR circumfrential lower leg PT-OP-T Assessment and Plan Start: 09/04/24 15:14 Freq: Status: Active Protocol: Document 12/17/24 13:06 [facility] (Rec: 12/17/24 13:14 [facility] [id number]) Physical Therapy Assessment Goals gait Short Term Goal (STG) Pt will amb w/o AD w/o major gait deviations STG Duration achieved 12/03 Squad Sergeant Goal (LTG) Pt will report able to amb 1 mile w/o R knee pain greater than 2/10 LTG Duration 4 ROM Impairment 15-71 Short Term Goal (STG) Pt will have improved R knee ROM to 8-100 deg ROM to allow improved gait. 12/01-4-112 STG Duration achieved 12/01 Squad Sergeant Goal (LTG) Pt will have improved R knee ROM to 0-120 deg ROM to allow improved gait. LTG Duration 4 strength Short Term Goal (STG) Pt will be able to do sit to stand w/RLE under her STG Duration achieved 12/03 Usp Goal (LTG) Pt will score at least 4+/5 on all BLE MMT to show improved strength to allow for greater ease with daily activities. 12/03-improving LTG Duration 01/19 mobility Squad Sergeant Goal (LTG) Pt will be able to reciprocate up/down stairs w/rail w/o pain in R knee. LTG Duration 4 Assessment Summary Assessment Pt cont to advance well with therapy but does cont to have significant LE swelling w/ feeling of tightness in calf. She had improved ROM after manual and KT tried to help w/ swelling Physical Therapy Plan Next Visit Focus/Plan Next Note Type Treatment Note Next Visit Plan cont to advance strength RLE, and work on stairs, change to 1x/week d/t high copay and pt progresing well. manual to improve mobility and dec pain
--- NOTE | 2024-12-26 16:13 | PT.OTN ---
Current Diagnoses Unilateral primary osteoarthritis, right knee (12/26/24) Presence of right artificial knee joint (12/26/24) Physical Therapy Treatment Note PT-OP-A Visit Information Start: 09/04/24 15:14 Freq: Status: Active Protocol: Document 12/26/24 12:34 AB (Rec: 12/26/24 16:13 AB [id number]) Out-Patient Physical Therapy Visit Information Visit Information Visit Type Treatment Note Visit Start Time 13:03 Visit Stop Time 13:07 Visit Number 13 Number of MARKETING PERFORMANCE ANALYST Visits 1 PT-OP-B Current Condition Start: 09/04/24 15:14 Freq: Status: Active Protocol: Document 11/10/24 13:01 [facility] (Rec: 11/10/24 13:50 [facility] [id number]) Current Condition History of Current Condition Current Complaints planned RTKA History of Current Condition re eval 11/10- Pt had TKA R . Had one tip over w/ but he was able to catch her. NO complications w/ surgery. 11/14 sees surgeon. tried exercises like APs and quad set and LAQ. doing okay w/in/ out of house w/2 KAHLIL. She has been having to get up a lot to go to the bathroom. Uses commode occ at night. Using walker. Haven't showered. Waiting until appt w/doctor. enies calf pain IE:Pt reports doctor determined she is ready for TKA. she is schedule Nov 03. 2 KAHLIL (plan to put a rail up) and have cabinets to either side into [facility]. THere is a basement but doesn't need to go down there. Pt has walk in shower and grab bars ( so no room for chair). Pt has a regular height toilet and has a raised seat w/rails and other room has a comfort ht toilet w/a rail next to it. Has a FWW, 4WW and cane. Spouse at home supportive and will help w/socks, shoes etc and cooking and cleaning. Pt did PT with some progress but did have calf straina fter DC. Treatment Goals Patient/Caregiver Goals be able to walk miles and climb stairs and stand longer (kitchen activities and social activities) PT-OP-C Subjective Start: 09/04/24 15:14 Freq: Status: Active Protocol: Document 12/26/24 12:34 AB (Rec: 12/26/24 16:13 AB [id number]) OP-PT Subjective Patient Comments Patient Comments Patient reports she is a little sore today, went to [employer] this morning. Patient rates R knee pain / start of session. Lacking 7 deg to 120 deg flexion AROM right knee. PT-OP-G Mobility & Gait Start: 09/04/24 15:14 Freq: Status: Active Protocol: Document 11/10/24 13:01 [facility] (Rec: 11/10/24 13:50 [facility] [id number]) OP Mobility Evaluation Bed Mobility Supine to and from Sit indep Transfers Sit to Stand uses FWW and UEs OP Gait Assessment Comments Gait Comments amb w/FWW w/slightly dec stance time RLE PT-OP-K Range of Motion Start: 09/04/24 15:14 Freq: Status: Active Protocol: Document 12/03/24 09:42 [facility] (Rec: 12/03/24 10:36 [facility] [id number]) Knee Goniometric Range of Motion Knee Right Flexion Passive (degrees) 106 Extension Active (degrees) 5 PT-OP-M Strength Start: 09/04/24 15:14 Freq: Status: Active Protocol: Document 12/03/24 09:42 [facility] (Rec: 12/03/24 10:36 [facility] [id number]) Hip Strength Hip Manual Muscle Testing Right Flexion (L2) 3+ Fair+ Abduction 4 Good External Rotation 4- Good- Internal Rotation 4- Good- Left Flexion (L2) 4 Good Abduction 4 Good External Rotation 4 Good Internal Rotation 4 Good Knee Strength Knee Manual Muscle Testing Right Flexion (S2) 4- Good- Extension (L3) 4- Good- Left Flexion (S2) 4+ Good+ Extension (L3) 4 Good Ankle/Foot Strength Ankle and Foot Manual Muscle Testing Right Dorsiflexion (L4) 4+ Good+ Plantarflexion (S1) 4+ Good+ Left Dorsiflexion (L4) 5 Normal Plantarflexion (S1) 5 Normal Comments PF tested seated B PT-OP-Q Treatments Start: 09/04/24 15:14 Freq: Status: Active Protocol: Document 12/26/24 12:34 [facility] (Rec: 12/26/24 16:13 AB [id number]) Therapeutic Exercises Supine Exercises hamstring stretch Supine Exercise Name from hooklying holding LE with towel behind knee Side right Reps/Minutes one min X 1 heel slides Supine Exercise Name on ball 2 min then AROM X 10 Comments verbal cues for full ROM Standing Exercises step up Standing Exercise Name fwd back HEP, lateral Side right Equipment Used 4 in w/1 rail Reps/Minutes X12 each then second set of fwd/back post tapint Comments initiated 6 inch step with discomfort X 1 TKE Standing Exercise Name HEP Side right Equipment Used latex free royal blue level 4 Reps/Minutes 15 Comments cues hips staying under her Manual Therapy Treatment Soft Tissue Mobilization R knee Body Location quad and HS, increased focus on HS Mobilization Type Cross-Friction,Myofascial Release,Rolling Intensity/Depth Superficial Taping R knee Treatment Focus unload fat pad and track medially Skin Inspection WNL PT-OP-T Assessment and Plan Start: 09/04/24 15:14 Freq: Status: Active Protocol: Document 12/26/24 12:34 [facility] (Rec: 12/26/24 16:13 AB [id number]) Physical Therapy Assessment Goals gait Short Term Goal (STG) Pt will amb w/o AD w/o major gait deviations STG Duration achieved 12/03 Snf Goal (LTG) Pt will report able to amb 1 mile w/o R knee pain greater than 2/10 LTG Duration 01/19 ROM Impairment 15-71 Short Term Goal (STG) Pt will have improved R knee ROM to 8-100 deg ROM to allow improved gait. 12/01-4-112 STG Duration achieved 12/01 Correctional Supervisor Lieutenant Goal (LTG) Pt will have improved R knee ROM to 0-120 deg ROM to allow improved gait. LTG Duration 01/19 strength Short Term Goal (STG) Pt will be able to do sit to stand w/RLE under her STG Duration achieved 12/03 Correctional Supervisor Lieutenant Goal (LTG) Pt will score at least 4+/5 on all BLE MMT to show improved strength to allow for greater ease with daily activities. 12/03-improving LTG Duration 01/19 mobility Correctional Supervisor Lieutenant Goal (LTG) Pt will be able to reciprocate up/down stairs w/rail w/o pain in R knee. LTG Duration 4 Assessment Summary Assessment Payton reports less pain with step up post taping, rates pain.5/10 right knee ambulating out of session w/o device end of session. AROM R knee flexion 123 deg post manual and therapy. Physical Therapy Plan Frequency and Duration Frequency of Treatment 2x/Week Duration of treatment (weeks) 10 Plan of Care Start Date 11/10/24 Plan of Care End Date 01/19/25 Next Visit Focus/Plan Next Note Type Treatment Note Next Visit Plan Address goals in 2 more session. cont to advance strength RLE, and work on stairs, change to 1x/week d/t high copay and pt progresing well. manual to improve mobility and dec pain
--- NOTE | 2024-12-30 15:56 | PT.OTN ---
Current Diagnoses Unilateral primary osteoarthritis, right knee (12/30/24) Presence of right artificial knee joint (12/30/24) Physical Therapy Treatment Note PT-OP-A Visit Information Start: 09/04/24 15:14 Freq: Status: Active Protocol: Document 12/30/24 13:28 AB (Rec: 12/30/24 15:02 AB [id number]) Out-Patient Physical Therapy Visit Information Visit Information Visit Type Treatment Note Visit Start Time 13:48 Visit Stop Time 14:32 Visit Number 14 Number of WASHER OFF Visits 2 PT-OP-B Current Condition Start: 09/04/24 15:14 Freq: Status: Active Protocol: Document 11/10/24 13:01 [facility] (Rec: 11/10/24 13:50 [facility] [id number]) Current Condition History of Current Condition Current Complaints planned RTKA History of Current Condition re eval 11/10- Pt had TKA R . Had one tip over w/ but he was able to catch her. NO complications w/ surgery. 11/14 sees surgeon. tried exercises like APs and quad set and LAQ. doing okay w/in/ out of house w/2 KAHLIL. She has been having to get up a lot to go to the bathroom. Uses commode occ at night. Using walker. Haven't showered. Waiting until appt w/doctor. enies calf pain IE:Pt reports doctor determined she is ready for TKA. she is schedule Nov 03. 2 KAHLIL (plan to put a rail up) and have cabinets to either side into [facility]. THere is a basement but doesn't need to go down there. Pt has walk in shower and grab bars ( so no room for chair). Pt has a regular height toilet and has a raised seat w/rails and other room has a comfort ht toilet w/a rail next to it. Has a FWW, 4WW and cane. Spouse at home supportive and will help w/socks, shoes etc and cooking and cleaning. Pt did PT with some progress but did have calf straina fter DC. Treatment Goals Patient/Caregiver Goals be able to walk miles and climb stairs and stand longer (kitchen activities and social activities) PT-OP-C Subjective Start: 09/04/24 15:14 Freq: Status: Active Protocol: Document 12/30/24 13:28 AB (Rec: 12/30/24 15:02 AB [id number]) OP-PT Subjective Patient Comments Patient Comments Payton reports pain is 0/10 start of session, reports she was sore after gardening yesterday. SLS right LE 6 sec without UE use. AROM right knee lacking 5 deg ext to 118 deg flexion PT-OP-G Mobility & Gait Start: 09/04/24 15:14 Freq: Status: Active Protocol: Document 11/10/24 13:01 [facility] (Rec: 11/10/24 13:50 [facility] [id number]) OP Mobility Evaluation Bed Mobility Supine to and from Sit indep Transfers Sit to Stand uses FWW and UEs OP Gait Assessment Comments Gait Comments amb w/FWW w/slightly dec stance time RLE PT-OP-K Range of Motion Start: 09/04/24 15:14 Freq: Status: Active Protocol: Document 12/03/24 09:42 [facility] (Rec: 12/03/24 10:36 [facility] [id number]) Knee Goniometric Range of Motion Knee Right Flexion Passive (degrees) 106 Extension Active (degrees) 5 PT-OP-M Strength Start: 09/04/24 15:14 Freq: Status: Active Protocol: Document 12/03/24 09:42 [facility] ([facility]03[facility]24 10[id number] Hip Strength Hip Manual Muscle Testing Right Flexion (L2) 3+ Fair+ Abduction 4 Good External Rotation 4- Good- Internal Rotation 4- Good- Left Flexion (L2) 4 Good Abduction 4 Good External Rotation 4 Good Internal Rotation 4 Good Knee Strength Knee Manual Muscle Testing Right Flexion (S2) 4- Good- Extension (L3) 4- Good- Left Flexion (S2) 4+ Good+ Extension (L3) 4 Good Ankle/Foot Strength Ankle and Foot Manual Muscle Testing Right Dorsiflexion (L4) 4+ Good+ Plantarflexion (S1) 4+ Good+ Left Dorsiflexion (L4) 5 Normal Plantarflexion (S1) 5 Normal Comments PF tested seated B PT-OP-Q Treatments Start: 09/04/24 15:14 Freq: Status: Active Protocol: Document 12/30/24 13:28 AB (Rec: 12/30/24 15:02 AB [id number]) Gym Equipment Shuttle Recovery single leg Details 37# (navy) Reps/Time X 15 each LE Verbal cues, monitored for pain bilateral Details 62 # Reps/Time X15 Therapeutic Exercises Supine Exercises hamstring stretch Supine Exercise Name from hooklying holding LE with towel behind knee Side right Reps/Minutes one min X 1 Comments with AROM PF/DF heel slides Supine Exercise Name AROM Reps/Minutes X10 Comments post manual Standing Exercises step downs Standing Exercise Name 6 inch and 4 inch step Reps/Minutes X 2-3 with UE Use Comments limited by pain step up Standing Exercise Name lateral Side right Equipment Used 4 in w/1 rail then X 15 six inch step Reps/Minutes X 15 Comments Mirror for pelvic alignment stretch Standing Exercise Name 1. MELVIN calf stretches Side bilateral Reps/Minutes 1 min ea Gait Training Gait Activity stairs Description 6 inch stairs X 4 X 4 with 1-2 rails Treatment Focus less quad dominant pattern, trunk facing fwd Comments Verbal and visual cues Manual Therapy Treatment Soft Tissue Mobilization scar Mobilization Type Myofascial Release Intensity/Depth suction cup Body Position Hooklying Comments w/flex/ext R knee Body Location quad and HS, increased focus on HS Mobilization Type Cross-Friction,Myofascial Release,Rolling Intensity/Depth Superficial Joint Mobilizations R patella Joint Inf, sup, med, lat, CW CCW Direction III PT-OP-T Assessment and Plan Start: 09/04/24 15:14 Freq: Status: Active Protocol: Document 12/30/24 13:28 AB (Rec: 12/30/24 15:02 AB [id number]) Physical Therapy Assessment Goals gait Short Term Goal (STG) Pt will amb w/o AD w/o major gait deviations STG Duration achieved 12/03 Chief Bank Examiner Goal (LTG) Pt will report able to amb 1 mile w/o R knee pain greater than 2/10 LTG Duration 4 ROM Impairment 15-71 Short Term Goal (STG) Pt will have improved R knee ROM to 8-100 deg ROM to allow improved gait. 12/01- STG Duration achieved 12/01 Chief Bank Examiner Goal (LTG) Pt will have improved R knee ROM to 0-120 deg ROM to allow improved gait. LTG Duration 4/7 strength Short Term Goal (STG) Pt will be able to do sit to stand w/RLE under her STG Duration achieved 12/03 Chief Bank Examiner Goal (LTG) Pt will score at least 4+/5 on all BLE MMT to show improved strength to allow for greater ease with daily activities. 12/03-improving LTG Duration 01/19 mobility Chief Bank Examiner Goal (LTG) Pt will be able to reciprocate up/down stairs w/rail w/o pain in R knee. 12/30/2024 Patients descends step to pattern favoring L LE with bilateral UE use, trunk lateral to step. LTG Duration 01/19 Assessment Summary Assessment Payton is lacking 3 deg ext to 126 deg flexion end of session . Payton reports having no pain descending stairs with 2 rails using a reciprocal pattern, post training for a less quad dominant pattern. Payton rates pain 2/10 right knee end of session. Possibly MWM TC right due to discomfort ant ankle with step downs lateral and unable to perform fwd step downs without knee pain, likely limited by ankle mobility contributing. Physical Therapy Plan Frequency and Duration Frequency of Treatment 2x/Week Duration of treatment (weeks) 10 Plan of Care Start Date 11/10/24 Plan of Care End Date 01/19/25 Next Visit Focus/Plan Next Note Type Progress Note Next Visit Plan Address goals. questionares, fwd step downs, TC MWM cont to advance strength RLE, and work on stairs, change to 1x/week d/t high copay and pt progresing well. manual to improve mobility and dec pain
--- NOTE | 2025-01-06 18:13 | PT.OTN ---
Current Diagnoses Unilateral primary osteoarthritis, right knee (01/06/25) Presence of right artificial knee joint (01/06/25) Physical Therapy Treatment Note PT-OP-A Visit Information Start: 09/04/24 15:14 Freq: Status: Active Protocol: Document 01/06/25 12:31 AB (Rec: 01/06/25 18:04 AB [id number]) Out-Patient Physical Therapy Visit Information Visit Information Visit Type Treatment Note Visit Start Time 13:48 Visit Stop Time 14:29 Visit Number 15 Number of DUMP OPERATOR Visits 3 PT-OP-B Current Condition Start: 09/04/24 15:14 Freq: Status: Active Protocol: Document 11/10/24 13:01 [facility] (Rec: 11/10/24 13:50 [facility] [id number]) Current Condition History of Current Condition Current Complaints planned RTKA History of Current Condition re eval 11/10- Pt had TKA R . Had one tip over w/ but he was able to catch her. NO complications w/ surgery. 11/14 sees surgeon. tried exercises like APs and quad set and LAQ. doing okay w/in/ out of house w/2 KAHLIL. She has been having to get up a lot to go to the bathroom. Uses commode occ at night. Using walker. Haven't showered. Waiting until appt w/doctor. enies calf pain IE:Pt reports doctor determined she is ready for TKA. she is schedule Nov 03. 2 KAHLIL (plan to put a rail up) and have cabinets to either side into [facility]. THere is a basement but doesn't need to go down there. Pt has walk in shower and grab bars ( so no room for chair). Pt has a regular height toilet and has a raised seat w/rails and other room has a comfort ht toilet w/a rail next to it. Has a FWW, 4WW and cane. Spouse at home supportive and will help w/socks, shoes etc and cooking and cleaning. Pt did PT with some progress but did have calf straina fter DC. Treatment Goals Patient/Caregiver Goals be able to walk miles and climb stairs and stand longer (kitchen activities and social activities) PT-OP-C Subjective Start: 09/04/24 15:14 Freq: Status: Active Protocol: Document 01/06/25 12:31 AB (Rec: 01/06/25 18:04 AB [id number]) OP-PT Subjective Patient Comments Patient Comments Payton reports she is ready to be done with physical therapy. today. PT-OP-G Mobility & Gait Start: 09/04/24 15:14 Freq: Status: Active Protocol: Document 11/10/24 13:01 LR (Rec: 11/10/24 13:50 [facility] [id number]) OP Mobility Evaluation Bed Mobility Supine to and from Sit indep Transfers Sit to Stand uses FWW and UEs OP Gait Assessment Comments Gait Comments amb w/FWW w/slightly dec stance time RLE PT-OP-K Range of Motion Start: 09/04/24 15:14 Freq: Status: Active Protocol: Document 01/06/25 12:41 AB (Rec: 01/06/25 18:09 AB [id number]) Knee Goniometric Range of Motion Knee Right Patient Position Supine Flexion Active (degrees) 123 Extension Active (degrees) 5 Comments lacking 5 deg extension Left Extension Active (degrees) 10 Comments lacking 10 deg extension PT-OP-M Strength Start: 09/04/24 15:14 Freq: Status: Active Protocol: Document 01/06/25 12:41 AB (Rec: 01/06/25 18:09 AB [id number]) Hip Strength Hip Manual Muscle Testing Right Flexion (L2) 4+ Good+ Abduction 4+ Good+ External Rotation 4 Good Internal Rotation 4+ Good+ Knee Strength Knee Manual Muscle Testing Right Flexion (S2) 4+ Good+ Extension (L3) 4+ Good+ Comments tested within limited ROM for knee ext Ankle/Foot Strength Ankle and Foot Manual Muscle Testing Right Dorsiflexion (L4) 4+ Good+ Plantarflexion (S1) 4+ Good+ PT-OP-Q Treatments Start: 09/04/24 15:14 Freq: Status: Active Protocol: Document 01/06/25 12:31 AB (Rec: 01/06/25 18:04 AB [id number]) Gym Equipment Shuttle Recovery single leg Details 37# (navy) Reps/Time X 15 each LE Verbal cues, monitored for pain bilateral Details 62 #, and 50# Reps/Time X8 and X 15 at 50 # Therapeutic Exercises Supine Exercises hamstring stretch Supine Exercise Name from hooklying holding LE with towel behind knee Side right Reps/Minutes one min X 1 Manual Therapy Treatment Soft Tissue Mobilization scar Mobilization Type Myofascial Release Intensity/Depth suction cup Body Position Hooklying Comments w/flex/ext R knee Body Location quad and HS, increased focus on HS Mobilization Type Cross-Friction,Myofascial Release,Rolling Intensity/Depth Superficial PT-OP-T Assessment and Plan Start: 09/04/24 15:14 Freq: Status: Active Protocol: Document 01/06/25 12:31 AB (Rec: 01/06/25 18:04 AB [id number]) Physical Therapy Assessment Goals gait Short Term Goal (STG) Pt will amb w/o AD w/o major gait deviations STG Duration achieved 12/03 Art Education Professor Goal (LTG) Pt will report able to amb 1 mile w/o R knee pain greater than 2/10 01/06/2025 Payton reports knee pain 2/10 post walking a mile LTG Duration 4/7 MET 01/06/2025 ROM Impairment 15-71 Short Term Goal (STG) Pt will have improved R knee ROM to 8-100 deg ROM to allow improved gait. 12/01-4- STG Duration achieved 12/01 Art Education Professor Goal (LTG) Pt will have improved R knee ROM to 0-120 deg ROM to allow improved gait. LTG Duration 01/19 Met for flexion, lacking 5 deg for ext right knee, but is lacking 10 L strength Short Term Goal (STG) Pt will be able to do sit to stand w/RLE under her STG Duration achieved 12/03 Art Education Professor Goal (LTG) Pt will score at least 4+/5 on all BLE MMT to show improved strength to allow for greater ease with daily activities. 12/03-improving Met on right LE for all but R hip ER LTG Duration 4 mobility Art Education Professor Goal (LTG) Pt will be able to reciprocate up/down stairs w/rail w/o pain in R knee. 12/30/2024 Patients descends step to pattern favoring L LE with bilateral UE use, trunk lateral to step.01/06/2025 Patient asc and desc 6 inch stairs using a reciprocal pattern w/o rails, reports no pain R knee, left knee ( unaffected) LE 2/10 post L kneee pain LTG Duration 47 Assessment Summary Assessment Payton able to ascend and descend 4 six inch stairs with a recprocal pattern without use of rails this session. Goals met for Stairs, ROM goal not met for knee ext R knee lacking 5 deg, but Left knee is lacking 10 deg and likely limiting progress. Strength R LE 4+ for all but hip ER, and patient met goal for pain 2/10 or less for ambulation one mile. Physical Therapy Plan Frequency and Duration Frequency of Treatment 2x/Week Duration of treatment (weeks) 10 Plan of Care Start Date 11/10/24 Plan of Care End Date 01/19/25 Next Visit Focus/Plan Next Note Type Treatment Note Next Visit Plan Possibly discharge, Patient reports she is ready to be done with PT.
--- NOTE | 2025-01-27 16:50 | PT.OPDS ---
Current Diagnoses Unilateral primary osteoarthritis, right knee (01/06/25) Presence of right artificial knee joint (01/06/25) Visit Care Team Role Provider Type Emily Fall DO Family Provider Physician Primary Care Provider Specialty: Family Practice Address: [address] [place] [address], [address], [place], [address] Email: [email or web address] Holly Sigala MD Attending Provider Physician Referring Provider Specialty: Orthopedics Orthopedic Surgery Address: [address] [place] [address], [id number] Email: [email or web address] Visit Number Visit Number 15 Discharge Summary PT-OP-B Current Condition Start: 09/04/24 15:14 Freq: Status: Active Protocol: Document 11/10/24 13:01 [facility] (Rec: 11/10/24 13:50 [facility] [id number]) Current Condition History of Current Condition Current Complaints planned RTKA History of Current Condition re eval 11/10- Pt had TKA R . Had one tip over w/ but he was able to catch her. NO complications w/ surgery. 11/14 sees surgeon. tried exercises like APs and quad set and LAQ. doing okay w/in/ out of house w/2 KAHLIL. She has been having to get up a lot to go to the bathroom. Uses commode occ at night. Using walker. Haven't showered. Waiting until appt w/doctor. enies calf pain IE:Pt reports doctor determined she is ready for TKA. she is schedule Nov 03. 2 KAHLIL (plan to put a rail up) and have cabinets to either side into [facility]. THere is a basement but doesn't need to go down there. Pt has walk in shower and grab bars ( so no room for chair). Pt has a regular height toilet and has a raised seat w/rails and other room has a comfort ht toilet w/a rail next to it. Has a FWW, 4WW and cane. Spouse at home supportive and will help w/socks, shoes etc and cooking and cleaning. Pt did PT with some progress but did have calf straina fter DC. Treatment Goals Patient/Caregiver Goals be able to walk miles and climb stairs and stand longer (kitchen activities and social activities) PT-OP-C Subjective Start: 09/04/24 15:14 Freq: Status: Active Protocol: Document 01/06/25 12:31 AB (Rec: 01/06/25 18:04 AB [id number]) OP-PT Subjective Patient Comments Patient Comments Payton reports she is ready to be done with physical therapy. today. PT-OP-G Mobility & Gait Start: 09/04/24 15:14 Freq: Status: Active Protocol: Document 11/10/24 13:01 [facility] (Rec: 11/10/24 13:50 [facility] [id number]) OP Mobility Evaluation Bed Mobility Supine to and from Sit indep Transfers Sit to Stand uses FWW and UEs OP Gait Assessment Comments Gait Comments amb w/FWW w/slightly dec stance time RLE PT-OP-K Range of Motion Start: 09/04/24 15:14 Freq: Status: Active Protocol: Document 01/06/25 12:41 AB (Rec: 01/06/25 18:09 AB [id number]) Knee Goniometric Range of Motion Knee Right Patient Position Supine Flexion Active (degrees) 123 Extension Active (degrees) 5 Comments lacking 5 deg extension Left Extension Active (degrees) 10 Comments lacking 10 deg extension PT-OP-M Strength Start: 09/04/24 15:14 Freq: Status: Active Protocol: Document 01/06/25 12:41 AB (Rec: 01/06/25 18:09 AB [id number]) Hip Strength Hip Manual Muscle Testing Right Flexion (L2) 4+ Good+ Abduction 4+ Good+ External Rotation 4 Good Internal Rotation 4+ Good+ Knee Strength Knee Manual Muscle Testing Right Flexion (S2) 4+ Good+ Extension (L3) 4+ Good+ Comments tested within limited ROM for knee ext Ankle/Foot Strength Ankle and Foot Manual Muscle Testing Right Dorsiflexion (L4) 4+ Good+ Plantarflexion (S1) 4+ Good+ PT-OP-T Assessment and Plan Start: 09/04/24 15:14 Freq: Status: Active Protocol: Document 01/27/25 16:49 [facility] (Rec: 01/27/25 16:50 [facility] [id number]) Physical Therapy Assessment Goals gait Short Term Goal (STG) Pt will amb w/o AD w/o major gait deviations STG Duration achieved 12/03 Atg Java Developer Goal (LTG) Pt will report able to amb 1 mile w/o R knee pain greater than 2/10 01/06/2025 Payton reports knee pain 2/10 post walking a mile LTG Duration 4 MET 01/06/2025 ROM Impairment 15-71 Short Term Goal (STG) Pt will have improved R knee ROM to 8-100 deg ROM to allow improved gait. 12/01-- STG Duration achieved 12/01 Fpc Goal (LTG) Pt will have improved R knee ROM to 0-120 deg ROM to allow improved gait. LTG Duration 01/19 Met for flexion, lacking 5 deg for ext right knee, but is lacking 10 L strength Short Term Goal (STG) Pt will be able to do sit to stand w/RLE under her STG Duration achieved 12/03 Fpc Goal (LTG) Pt will score at least 4+/5 on all BLE MMT to show improved strength to allow for greater ease with daily activities. 12/03-improving Met on right LE for all but R hip ER LTG Duration 01/19 mobility Atg Java Developer Goal (LTG) Pt will be able to reciprocate up/down stairs w/rail w/o pain in R knee. 12/30/2024 Patients descends step to pattern favoring L LE with bilateral UE use, trunk lateral to step.01/06/2025 Patient asc and desc 6 inch stairs using a reciprocal pattern w/o rails, reports no pain R knee, left knee ( unaffected) LE 2/10 post L kneee pain LTG Duration 01/19 Assessment Summary Assessment Pt has mostly met all goals and has progressed well after TKA. DC d/t pt request at this time and having met most goals during PT sessions. Physical Therapy Plan Discharge Physical Therapy Discharge Reasons Goals Met
== END 2025-02-03 10:43 | disposition home or self-care (01) ==
LOC: PHYS 13:45
PROVIDERS: Family Provider Family Medicine; PCP Family Medicine; Referring Provider Orthopaedic Surgery; Visit Provider Orthopaedic Surgery
DX: M17.11 Unilateral primary osteoarthritis, right knee (principal); Z96.651 Presence of right artificial knee joint
CPT/HCPCS: 97110; 97140; 97162; 97164; 97530; 97535

== ENCOUNTER → 2025-01-09 10:42 | Outpatient (CLI) | payer OTHER, SELFPAY ==
--- NOTE | 2025-01-09 10:43 | DI.US.S_ITS ---
PROCEDURE: US THYROID INDICATIONS: MULTIPLE THYROID NODULES TECHNIQUE: Real-time scanning was performed of the thyroid gland, with image documentation. COMPARISON: [facility], US, US THYROID, 06/16/2022, 9:55. FINDINGS: Thyroid: Right lobe measures 6.1 x 2.5 x 3 cm. Left lobe Absent. Isthmus is 0.4 cm thick. Echotexture is heterogeneous with multiple nodules. Nodule number: 1 Location: Right inferior Size: 16 x 16 x 10 mm Smaller Composition: Partial solid partial cystic Echogenicity: Hypoechoic Shape: wider than tall. Margins: Smooth Echogenic foci: Comet tail Total points: 3 ACR TI-RADS category: 3, follow-up recommended Nodule number: 2 Location: Right mid Size: 18 x 20 x 10 mm Slightly larger Composition: Spongiform Echogenicity: Not applicable Shape: Not applicable Margins: Not applicable Echogenic foci: Comet tail Total points: 0 ACR TI-RADS category: Not suspicious, 1 Nodule number: 3 (4 on prior) Location: Right lateral Size: 15 x 11 x 13 mm Slightly larger Composition: Partial cystic partial solid Echogenicity: Hypoechoic Shape: wider than tall. Margins: Smooth Echogenic foci: None Total points: 3 ACR TI-RADS category: 3, follow-up recommended Nodule number: 4 (5 on prior) Location: Right superior Size: 26 x 23 x 14 mm, similar Composition: Solid Echogenicity: Hypoechoic Shape: wider than tall. Margins: Smooth Echogenic foci: None Total points: 4 ACR TI-RADS category: 4, sampling recommended if not already obtained Nodule number: 5 (6 on prior) Location: Right superior lateral Size: 27 x 20 x 13, similar Composition: Solid Echogenicity: Isoechoic Shape: wider than tall. Margins: Smooth Echogenic foci: None Total points: 3 ACR TI-RADS category: 3, sampling recommended if not already obtained IMPRESSION: Thyroid nodules as above. ACR TI-RADS definitions and recommendations: TI-RADS 1 (benign): 0 points. FNA not needed. TI-RADS 2 (not suspicious): 2 points. FNA not needed. TI-RADS 3: 3 points. * FNA if 2.5 cm or larger, follow up if 1.5 cm or larger (at 1, 3, and 5 years). TI-RADS 4: 4-6 points. * FNA if 1.5 cm or larger, follow up if 1 cm or larger (at 1, 2, 3, and 5 years). TI-RADS 5: 7 points or more. * FNA if 1 cm or larger, follow up if 0.5 cm or larger (every year for 5 years). Dictated by: Richard Freeman M.D. on 01/09/2025 at 18:52 Approved by: Richard Freeman M.D. on 01/09/2025 at 18:58
== END ==
PROVIDERS: Family Provider Family Medicine; PCP Family Medicine; Referring Provider Internal Medicine Endocrinology, Diabetes & Metabolism; Visit Provider Internal Medicine Endocrinology, Diabetes & Metabolism
DX: E04.2 Nontoxic multinodular goiter (principal); R92.8 Other abnormal and inconclusive findings on diagnostic imaging of breast
CPT/HCPCS: 76536; 76642

== ENCOUNTER → 2025-01-09 | Outpatient (CLI) | payer OTHER, SELFPAY ==
--- NOTE | 2025-01-09 10:45 | DI.US.S_ITS ---
US breast LT limited, MM UNILATERAL LT: 01/09/2025 BI-RADS: 1 CLINICAL: 79-year old female for left diagnostic mammogram and left diagnostic breast ultrasound. Tyrer-Cuzick lifetime risk of 1.7%. No personal or first-degree family history of breast cancer. The patient had a prior right breast biopsy. PRIOR EXAMS 11/15/2023, 10/27/2022, 10/22/2021, 10/14/2020, 04/27/2020, 10/28/2019, 10/09/2019, 10/05/2018, 10/01/2017, 09/26/2016, 09/28/2015, 09/22/2015. MAMMOGRAPHY TECHNIQUE: 2D and 3D (tomosynthesis) digital mammographic views obtained, with additional images as needed for full coverage. Current study was also evaluated with a Computer Aided Detection (CAD) system. ULTRASOUND TECHNIQUE: Real-time dee scale imaging of the area of clinical interest was performed with image documentation. DENSITY Left: B. There are scattered areas of fibroglandular density. MAMMOGRAPHY FINDINGS Left: The finding seen on recent screening mammogram did not persist with additional imaging and is consistent with superimposition of normal breast tissue. No suspicious mass, asymmetry, microcalcification, or other abnormality seen. ULTRASOUND FINDINGS Left: Confirmatory negative ultrasound demonstrates no sonographic abnormality in the left breast at 1 to 3 o'clock at a distance of 6 cm from the nipple. IMPRESSION: Left * No evidence of malignancy. RECOMMENDATIONS Bilateral * Annual screening mammography. COMMENTS: Findings and recommendations were conveyed to the patient during today's evaluation. OVERALL ASSESSMENT CATEGORY BI-RADS-1: Negative. [employer] recommends annual screening mammography beginning at age 40 for women with average risk of breast cancer. ELECTRONICALLY SIGNED: Laurie Mccarthy M.D. on 01/13/2025 at 01:58:53 PM PT Interpreting Station ID: [id number]
== END ==
PROVIDERS: Family Provider Family Medicine; PCP Family Medicine; Referring Provider Family Medicine; Visit Provider Family Medicine
DX: R92.8 Other abnormal and inconclusive findings on diagnostic imaging of breast (principal)
CPT/HCPCS: 76642; 77065; G0279

== ENCOUNTER → 2025-02-19 09:26 | Outpatient (CLI) | payer OTHER, SELFPAY ==
[2025-02-19 10:53] LABS: BUN Creatinine Ratio 30.8 (6-22); Blood Urea Nitrogen 20 mg/dL (7-17); Calcium 10.5 mg/dL (8.4-10.2); Carbon Dioxide 28 mmol/L (22-32); Chloride 103 mmol/L (98-107); Estimated Glomerular Filt Rate > 60 mL/min (>60); Glucose 74 mg/dL (70-99); HEMOLYSIS < 15 (0-50); Potassium 4.2 mmol/L (3.4-5.1); Sodium 137 mmol/L (137-145)
[2025-02-19 11:01] LABS: Vitamin D 25 Hydroxy (D3) 67.7 ng/mL (30.0-100.0)
[2025-02-20 07:40] LABS: Parathyroid Hormone Int 79 pg/mL (15-65)
== END ==
PROVIDERS: Family Provider Family Medicine; PCP Family Medicine; Referring Provider Internal Medicine Endocrinology, Diabetes & Metabolism; Visit Provider Internal Medicine Endocrinology, Diabetes & Metabolism
DX: E21.0 Primary hyperparathyroidism (principal)
CPT/HCPCS: 36415; 80048; 82306; 83970

== ENCOUNTER → 2025-03-24 09:55 | Outpatient (CLI) | payer OTHER, SELFPAY ==
[2025-03-24 11:19] LABS: TSH w/ Reflex to FT4 1.92 uIU/mL (0.47-4.68)
== END ==
PROVIDERS: Family Provider Family Medicine; PCP Family Medicine; Referring Provider Internal Medicine Endocrinology, Diabetes & Metabolism; Visit Provider Internal Medicine Endocrinology, Diabetes & Metabolism
DX: R68.89 Other general symptoms and signs (principal); Z90.09 Acquired absence of other part of head and neck
CPT/HCPCS: 36415; 84443

== ENCOUNTER → 2025-03-29 09:14 | Outpatient (CLI) | payer OTHER, SELFPAY ==
--- NOTE | 2025-03-29 09:15 | DI.MRI.S_ITS ---
PROCEDURE: MR KNEE LT WO CON INDICATIONS: preoperative planning for unicompartmental knee arthroplasty TECHNIQUE: Noncontrast sagittal PD fast spin echo and T2 fast spin echo with fat saturation, sagittal 3-D FLASH with fat saturation; coronal T1 spin echo and PD fast spin echo with fat saturation, and axial PD fast spin echo with fat saturation through the knee. COMPARISON: None. FINDINGS: Image quality: Excellent. Menisci: Markedly abnormal signal in the medial meniscus with macerated/degenerated, torn posterior horn extending into the mid body and truncated anterior and medial displaced anterior horn with blunting of the apex. The lateral meniscus is grossly normal in size contour and attenuation. Posterior meniscocapsular separation medial and lateral. Cruciate ligaments: Abnormal heterogeneous signal and irregularity of the proximal mid and distal anterior cruciate ligament with near complete tear, a few intact fibers. Posterior cruciate ligament is normal. Medial structures: Mild increased T2 weighted signal surrounding the mid lateral ligament with mild internal increased T2 weighted signal distally suggests grade 1-2 injury. The semimembranosus tendon insertion is normal. Visualized portions of the pes anserinus tendons appear normal. No abnormal bursal fluid. Lateral structures: The lateral collateral ligament, long and short heads of the biceps femoris tendon appear intact. The popliteus tendon appears normal. Iliotibial band appears normal. Anterior structures: Nonspecific edema in the suprapatellar greater than infra of patellar fat pads. The quadriceps and patellar tendons appear intact. Patellar alignment is normal. No femoral trochlear dysplasia or ventral trochlear prominence. Bones and cartilage: Degenerative changes with diffuse cartilaginous thinning, osteophytes, some remodeling flattening in the medial compartment and to a lesser degree in the medial and lateral patellar facets and lateral compartment. Mild bone edema is noted in the medial tibial plateau at the tibial eminence some of which may be related to anterior cruciate ligament injury. Joint space: [id number] knee joint effusion. Moderate popliteal cyst measures up to approximately 7 cm cc by 2.5 cm transverse by 2 cm AP maximal dimensions. IMPRESSION: Macerated/degenerated, torn medial meniscus. Near complete tear of the anterior cruciate ligament. Knee joint effusion, popliteal cyst, degenerative changes Kellgren Ramón grade 4 most notably in the medial compartment. Grade 2 injury medial collateral ligament some of which may be chronic. Dictated by: Leon Garcia M.D. on 03/30/2025 at 12:19 Approved by: Leon Garcia M.D. on 03/30/2025 at 12:36
== END ==
LOC: MRI 09:15
PROVIDERS: Family Provider Family Medicine; PCP Family Medicine; Referring Provider Orthopaedic Surgery; Visit Provider Orthopaedic Surgery
DX: S83.242A Other tear of medial meniscus, current injury, left knee, initial encounter (principal); S83.512A Sprain of anterior cruciate ligament of left knee, initial encounter; M17.12 Unilateral primary osteoarthritis, left knee; M71.22 Synovial cyst of popliteal space [Baker], left knee; M25.462 Effusion, left knee
CPT/HCPCS: 73721

== ENCOUNTER → 2025-05-11 10:43 | Outpatient (CLI) | payer OTHER, SELFPAY ==
[2025-05-11 11:03] LABS: Add Manual Diff / Slide Review NO; Hematocrit 38.7 % (36-46); Hemoglobin 13.2 g/dL (12.0-16.0); Lymphocytes Absolute Auto 1700 /uL (1100-4500); Mean Corpuscular HGB Conc 34.2 % (30-36); Mean Corpuscular Hemoglobin 31.2 PG (26-34); Mean Corpuscular Volume 91.1 fL (80-100); Platelet Count 217 X10^3/uL (150-400)
[2025-05-11 11:08] LABS: Hemoglobin A1C% w Est Avg Glu 5.0 % (4.0-6.0)
[2025-05-11 11:22] LABS: Albumin 4.4 g/dL (3.5-5.0); Blood Urea Nitrogen 19 mg/dL (7-17); Calcium 10.7 mg/dL (8.4-10.2); Carbon Dioxide 28 mmol/L (22-32); Chloride 99 mmol/L (98-107); Estimated Glomerular Filt Rate > 60 mL/min (>60); Glucose 86 mg/dL (70-99); HEMOLYSIS < 15 (0-50); Potassium 4.9 mmol/L (3.4-5.1); Sodium 133 mmol/L (137-145)
[2025-05-11 11:36] LABS: Vitamin D 25 Hydroxy (D3) 60.7 ng/mL (30.0-100.0)
[2025-05-11 11:37] LABS: Prealbumin 30.5 mg/dL (17.6-36.0)
== END ==
PROVIDERS: Family Provider Family Medicine; PCP Family Medicine; Referring Provider Orthopaedic Surgery Adult Reconstructive Orthopaedic Surgery; Visit Provider Orthopaedic Surgery Adult Reconstructive Orthopaedic Surgery
DX: Z01.812 Encounter for preprocedural laboratory examination (principal); M17.12 Unilateral primary osteoarthritis, left knee
CPT/HCPCS: 36415; 80048; 82040; 82306; 83036; 84134; 85025

== ENCOUNTER 2025-07-27 06:11 | Day surgery (SDC) | payer OTHER, SELFPAY ==
[2025-07-17 08:49] VITALS: BMI 26.3
[2025-07-27] VITALS (18 sets, daily range): BP systolic 124–181; BP diastolic 69–96; PULSE 68–88; RESP 14–24; TEMP 36.4–36.8; O2SAT 96–99
[2025-07-27] MEDS: LACTATED RINGERS 1,000 ML 42 ML IV ×2 (07:10→10:21)
--- NOTE | 2025-07-27 07:38 | DI.RAD.S_ITS ---
PROCEDURE: XR KNEE LT 1TO2V INDICATIONS: Post operative imaging TECHNIQUE: 2 view(s) of the knee acquired. COMPARISON: [facility], TUSHAR, ORTHO-XR KNEE WB LEFT, 05/08/2025, 14:57. [facility], TUSHAR, XR KNEE RT 3V, 10/22/2019, 14:14. FINDINGS: Bones: Patient is status post left knee medial hemiarthroplasty. Hardware components are in expected positions. Visualized bony structures are intact. Soft tissues: Overlying postoperative changes are noted. IMPRESSION: Expected post-operative appearance of the left knee medial hemiarthroplasty. Dictated by: Gomez Snow M.D. on 07/27/2025 at 14:56 Approved by: Gomez Snow M.D. on 07/27/2025 at 14:57
--- NOTE | 2025-07-27 07:40 | PM.PREOP ---
Pre-operative Note Interval Note History & Physical reviewed/Exam performed by Physician: Yes Changes to H&P: No
[2025-07-27] MEDS: ACETAMINOPHEN 325 MG TABLET 975 MG PO (07:53)
--- NOTE | 2025-07-27 08:36 | SUR.OPER ---
Supine on padded OR bed, head on pillow, arms secured on padded arm boards at <90 degrees abduction, legs uncrossed,right leg secured with tape, left leg in knee positioner, safety belt at torso, hip positioner.
[2025-07-27] MEDS: KETOROLAC 30 MG/ML VIAL 15 MG INJ (08:43)
--- NOTE | 2025-07-27 09:40 | SUR.OPER ---
LAVAGE: 88ML POVIDONE IODINE, 118ML 35 HYDROGEN PEROXIDE, NORMAL SALINE
--- NOTE | 2025-07-27 10:19 | P.OP_ITS ---
Operative Date/Time/Diagnoses Date of procedure: 07/27/25 Time of procedure: 07:45 Pre-op diagnosis: Medial compartment left knee osteoarthritis Post-op diagnosis: same Procedure & Clinicians Procedure: Medial unicompartmental left knee arthroplasty Same procedure(s) as scheduled: Yes Surgeon: Alexander Vazquez Assisted?: Yes Rn First Assist: Alvina Guaman Anesthesia Type: Spinal, Sedation and Local Operative Notes Findings: Severe medial compartment arthritis with well-preserved lateral compartment Closure Type: primary Applied: implant(s) Estimated Blood Loss (mL): 100 Tourniquet time (min): 78 Procedure in detail: Robotic assisted left medial unicompartmental knee arthroplasty using the [employer] journey 2 system Implants: Size 5 Femoral Component Size 3 Tibial Component Size 8 mm Polyethylene Procedure Summary: This 80-year-old female patient had isolated medial compartment arthritis on both her x-rays and an MRI. I measured her on her long leg scanogram 8? of varus. On the robotic array today she measured at 6? of varus. This was only partially corrected as the final alignment according to the robotic array was 4? of varus. She had a slight flexion contracture which also improved both clinically and according to the robotic measurements. With final implant sizes a 2 mm spacer block was able to slide in and out with the ease and a 3 mm spacer block was only able to be placed with difficulty. Clinically she remained in varus. The knee was meticulously inspected for any remaining cement. Procedure in Detail: This patient was seen preoperatively and evaluated for knee pain which was refractory to numerous nonoperative treatment modalities. Their pain correlated with radiographic changes demonstrating significant degeneration in the knee joint. The risks and benefits of continued nonoperative management versus operative management were discussed at length and all of the patient?s questions were answered. Additional educational materials providing further details beyond our discussion in clinic were provided via a publicly available patient education video which included the incidence of medical complications associated with total knee arthroplasty, reasons for revision following total knee arthroplasty, and patient satisfaction rates following unicompartmental knee arthroplasty. With this understanding of the risks inherent to the procedure, the patient elected to move forward with operative management. Following preoperative optimization, the patient was scheduled for surgery. The patient was met in the preoperative holding area the day of the procedure and all questions were answered. The patient?s nares were swabbed with betadine in order to decolonize them from MRSA. Informed consent was signed and the left limb was marked with indelible ink. The patient was brought back to the operating room where anesthesia was induced. The patient was transferred to the operating table and all bony prominences were padded. The operative site was prepped and draped in the usual sterile fashion. A second prep stick was utilized following drape placement. The incision was marked corresponding to the medial aspect of the tibial tubercle and the patella. Ioban was wrapped circumferentially around the knee. Prior to incision, tranexamic acid and cefazolin were administered. Templating images were displayed. A timeout procedure was performed verifying the patient?s identity, medical comorbidities, allergies, relevant medications, anesthesia type and the surgical plan. All present were in agreement. The assistance of a physician assistant scientist was required for positioning, room setup, soft tissue retraction and wound closure. Without this assistance, the procedure would have been significantly more challenging and time consuming. ? The tourniquet was inflated prior to incision. I made an anterior incision over the knee, dissected through the subcutaneous tissues and identified the lateral border of the VMO. Medial and lateral soft tissue flaps were developed. A mid vastus arthrotomy was performed. ?I released tissue off of the proximal medial tibia. ?I inserted pins for the robotic rays into the femur and tibia. ?I mapped out the distal femur and proximal tibia using the robotic array and mapped out the hip knee ankle axis as well. ?I noted grossly that she had some recoil with knee hyperextension. ?The varus deformity was approximately 6 ? on the robotic array. ?I made a plan which would involve burring of the tibia and femur using the robotic system which would lead to appropriate knee balance once implants were placed. ?After reviewing all parameters on this plan I felt that it was appropriate and proceeded with burring. ?I initially burred the distal femur and the posterior femur followed by the proximal tibia. ?As bone was cleared out posteriorly on both the femoral and tibial side I switched back and forth until the cuts were completed. I used a single-sided reciprocating saw on the intercondylar eminence to create a flush surface to maximize medial-lateral width of the tibial component. I inserted trials. ?I found these had appropriate parameters both with my gross assessment and with the robotic assessment. ?I therefore implanted those components. ? All bony ends were copiously irrigated and dried. ?Cement was introduced. ?The tibial component was inserted and excess cement was removed ensuring no cement had leaked out the back of the knee. ?Cement was then placed on the femur and the femoral component was inserted while maintaining pressure on the anterior tibial base plate to prevent lift-off. ?A polyethylene insert trial was then placed. ?The knee was placed into full extension and allowed to dry. ?Once cement had dried excess cement was removed, the tourniquet was taken down, and I again trialed with the 2 mm and 3 mm spacer. ?I found that the 8 mm trial polyethylene had the correct gross kinematics on my assessment that I desired and I therefore placed the final polyethylene insert. ?The tissues were briefly soaked in peroxide and Betadine as a dilute mixture and then the knee was copiously irrigated. ?TXA was administered. The arthrotomy was closed with nonabsorbable interrupted suture as well as an absorbale running Vycril suture extending up into the VMO split ensuring that this extended to the top of the arthrotomy. This was backed up with running barbed suture throughout the arthrotomy. A barbed suture was used in the subcutaneous tissues. The skin was closed with 2-0 and 3-0 sutures. Surgical glue was applied and a soft dressing was placed. The sponge, instrument and needle counts were reported as being correct at the end of the case. ?No obvious complications occurred. The patient was transferred from the operating table back to a stretcher. The patient emerged from anesthesia without difficulty and was taken to the PACU in a stable condition. Plan for aftercare: - Weightbearing as tolerated - Mobilization as soon as the patient has recovered from anesthesia - Aspirin 81 twice per day for DVT prophylaxis - Multimodal pain regimen with no IV opioids ordered - Anticipate discharge home later today. Patient has had some issues with mental fogginess after a prior surgery and if she is having lot of confusion postoperatively we can keep her overnight but if she is doing well we will try to get her home per her preference - Follow up at [facility] in 2 weeks - Detailed postoperative instructions available at [email or web address] Complications: none Post-operative Condition: stable Disposition: PACU
[2025-07-27] MEDS: LABETALOL 20 MG/4 ML SYRINGE 5 MG IV (11:22)
--- NOTE | 2025-07-29 15:44 | PT.IIE ---
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) Status post tubal ligation (1979) Medical History (Last Updated 07/17/25 @ 08:42 by Kim Lester, RN) BCC (basal cell carcinoma), face (1996) Chicken pox Eczema Fecal incontinence Foot pain (2001) Hayfever Hearing loss (1989) Hemorrhoids (1974) High blood pressure (03/15/13) High cholesterol (10/15/99) Measles Mumps Osteoarthritis (~1999) Retinal detachment Rosacea Rubella Shoulder pain (2013) Vertigo Physical Therapy Inpatient Evaluation/Re-Eval M1 PT/OT-IP Prior Functional Status Start: 07/29/25 15:32 Freq: NEEDED Status: Active Protocol: Document 07/27/25 15:25 KJ (Rec: 07/29/25 15:44 KJ [id number]) Medical Review Prior Functional Status Medical History Yes Reviewed Mobility and Gait Indep mobility and ADLs. Has been practicing ambulation w/walker and cane. Social History Household Members spouse Home Equipment Front Wheel Walker,Straight Cane M2 PT-IP Current Condition Start: 07/29/25 15:32 Freq: NEEDED Status: Active Protocol: Document 07/27/25 15:25 KJ (Rec: 07/29/25 15:44 KJ [id number]) Physical Therapy Current Condition Current Condition Evaluation Date 07/27/25 Treatment Diagnosis Impaired mobility following partial knee replacement L Onset Date 07/15/25 M3 PT-IP Subjective Start: 07/29/25 15:32 Freq: NEEDED Status: Active Protocol: Document 07/27/25 15:25 KJ (Rec: 07/29/25 15:44 KJ [id number]) Subjective Physical Therapy Visit Type Type Initial Evaluation Visit Start Time 14:41 Visit Stop Time 15:24 Physical Therapy Visit Comments Patient Comments minimal pain Therapy Pain Assessment Pain When Pain Assessed At Rest Pain Present Pain Present Pain Reported Location L knee Pain Management Re-positioning Techniques M4 PT-IP Mobility and Gait Start: 07/29/25 15:32 Freq: NEEDED Status: Active Protocol: Document 07/27/25 15:25 KJ (Rec: 07/29/25 15:44 KJ [id number]) PT-Transfer Assessment Sit to and From Stand Sit to and from Contact Guard Assistance Stand Equipment Transfer Assistive Gait Belt,Front Wheeled Walker Device Orthotic/Prosthetic No Devices or Brace: Transfers Transfer Destination Chair Transfer Technique Stand Step Pivot Transfer Ability Level of Assist Contact Guard Assistance Gait Assessment Gait Gait Assistance Contact Guard Assist Required: Assistive Devices Assistive Device Gait Belt,Front Wheeled Walker Gait Deviations General Gait Pattern Decreased Stride Length Comments Gait Comments Decreased knee flex/ext during ambulation L Stair Climbing Assessment Comments Stair Climbing Verbally instructed pt on stairs. Pt with good recall Comments due to hx R TKR PT-Balance Assessment Sitting Balance and Reactions Static Sitting Normal Balance Ability Dynamic Sitting Normal Balance Ability Standing Balance and Reactions Static Standing Good Balance Ability Dynamic Standing Good Balance Ability M5 PT-IP Objective Assessments Start: 07/29/25 15:32 Freq: NEEDED Status: Active Protocol: Document 07/27/25 15:25 KJ (Rec: 07/29/25 15:44 KJ [id number]) Orientation Orientation/Cognition Safety Awareness Understands Safety Issues Gross Range of Motion Upper Extremity ROM Assessment Within Functional Limits Lower Extremity ROM Assessment Left Impaired Strength Upper Extremity Strength Assessment Within Functional Limits Lower Extremity Strength Assessment Left Impaired M6 PT-IP Treatment Start: 07/29/25 15:32 Freq: NEEDED Status: Active Protocol: Document 07/27/25 15:25 KJ (Rec: 07/29/25 15:44 KJ [id number]) Physical Therapy Treatment Exercises Exercises Ankle Pumps,Gluteal Sets,Quad Sets Other Treatments Other Treatment Instructed pt to keep knee in extension while in bed/ Performed couch, and knee in flex while sitting in a chair, to assure full ROM M7 PT-IP Assessment and Plan Start: 07/29/25 15:32 Freq: NEEDED Status: Active Protocol: Document 07/27/25 15:25 KJ (Rec: 07/29/25 15:44 KJ [id number]) PT Summary Assessment and Plan Potential Rehabilitation Excellent Potential Status of Condition Evolving at Evaluation Summary Impairments Pain,ROM,Activity Tolerance Assessment Summary Pt ambulating well following surgery this morning Treatment Plan Other Pt has appointment for outpatient PT at [facility] Recommendations and Next Treatment Focus Weight Bearing Status Weight Bearing Weight Bear as Tolerated Status Discharge Recommendations PT Discharge Home with 07/05 Assist Available Recommendations Transportation Needs Private Vehicle at Discharge
== END 2025-07-27 15:40 | disposition home or self-care (01) ==
LOC: OR 06:12 → AC 06:13
PROVIDERS: Family Provider Family Medicine; PCP Family Medicine; Referring Provider Orthopaedic Surgery Adult Reconstructive Orthopaedic Surgery; Visit Provider Orthopaedic Surgery Adult Reconstructive Orthopaedic Surgery
PROC: (CPT 27446; principal; 2025-07-27 07:45)
DX: M17.12 Unilateral primary osteoarthritis, left knee (principal)
CPT/HCPCS: 27446; 73560; 82962; 97110; 97116; 97161; C1776; S2900; C1713; J0689; J1100; J1885; J2405; J2704; J3010; J7120